=== PATIENT | female | born 1940 | race Caucasian/White ===

== ENCOUNTER → 2016-12-04 | Outpatient (CLI) | payer BC ==
[~2016-12-04] MED LIST: ASPCH81X PO; CALC500C70 PO; CHOL100027 PO; MULT-190 PO; NAPR1TAB9 PO
--- NOTE | 2016-12-04 16:46 | MAMMOGRAPHY REPORT ---
BILATERAL DIGITAL SCREENING MAMMOGRAM WITH CAD: 12/04/2016 CLINICAL HISTORY: Routine screening. Patient has no complaints. TECHNIQUE: Current study was also evaluated with a Computer Aided Detection (CAD) system. Bilatera l CC and MLO views were obtained. COMPARISON: Comparison is made to exams dated: 12/03/2015 mammogram, 11/30/2014 mammogram, 11/10/2013 mammogram, 11/08/2012 mammogram, 11/06/2011 mammogram, and 11/05/2010 mammogram - [facility]. BREAST COMPOSITION: The tissue of both breasts is heterogeneously dense, which may obscure small ma sses. FINDINGS: No suspicious masses, calcifications, or areas of architectural distortion are noted in e ither breast. There has been no significant interval change compared to prior exams. Bilateral beckie gn appearing calcifications are not significantly changed. Lobulated benign-appearing mass in the l eft inferior breast is stable dating back to at least 2006 exam. IMPRESSION: ACR BI-RADS CATEGORY 2: BENIGN There is no mammographic evidence of malignancy. A 1 year screening mammogram is recommended. The p atient will receive written notification of the results. Approximately 10% of breast cancers are not detected with mammography. A negative mammographic repor t should not delay biopsy if a clinically suggestive mass is present. Dolores Desir M.D. /:12/04/2016 15:45:47 [employer]: Lois JAQUEZR M, [facility] letter sent: Normal 1/2 BI-RADS Code: ACR BI-RADS Category 2: Benign
== END | disposition home or self-care (01) ==
LOC: C.MAMM 13:11
PROVIDERS: ATTEND Family Medicine
DX: Z12.31 Encounter for screening mammogram for malignant neoplasm of breast (principal)

== ENCOUNTER → 2017-11-26 | Outpatient (CLI) | payer BC ==
--- NOTE | 2017-11-27 14:59 | MAMMOGRAPHY REPORT ---
BILATERAL DIGITAL SCREENING MAMMOGRAM TOMOSYNTHESIS WITH CAD: 11/26/2017 CLINICAL HISTORY: Routine screening. Patient has no complaints. TECHNIQUE: Breast tomosynthesis in addition to standard 2D mammography was performed. Current study was also evaluated with a Computer Aided Detection (CAD) system. COMPARISON: Comparison is made to exams dated: 12/04/2016 mammogram, 12/03/2015 mammogram, 11/30/2014 m ammogram, 11/10/2013 mammogram, 11/08/2012 mammogram, and 11/06/2011 mammogram - [facility]. BREAST COMPOSITION: The tissue of both breasts is heterogeneously dense, which may obscure small mas ses. FINDINGS: No suspicious masses, calcifications, or areas of architectural distortion are noted in ei ther breast. There has been no significant interval change compared to prior exams. Lobulated benign -appearing mass in the left breast at approximately 6:00 is stable dating back to at least the 2008 e xam. Other small circumscribed benign-appearing masses are noted bilaterally on the tomosynthesis im ages, which are considered benign given the multiplicity and bilaterality and likely represent cysts. Scattered bilateral benign-appearing calcifications are stable. IMPRESSION: ACR BI-RADS CATEGORY 2: BENIGN There is no mammographic evidence of malignancy. A 1 year screening mammogram is recommended. The pa tient will receive written notification of the results. Approximately 10% of breast cancers are not detected with mammography. A negative mammographic report should not delay biopsy if a clinically suggestive mass is present. Dolores Desir M.D. /:11/26/2017 16:09:38 [employer]: Lois JAQUEZR, M, [facility] letter sent: Normal 1/2 BI-RADS Code: ACR BI-RADS Category 2: Benign
== END | disposition home or self-care (01) ==
LOC: C.MAMM 14:43
PROVIDERS: ATTEND Family Medicine
DX: Z12.31 Encounter for screening mammogram for malignant neoplasm of breast (principal)

== ENCOUNTER 2019-02-19 17:32 | Inpatient (IN) ==
[2019-02-19] MEDS ORDERED: SODIUM CHLORIDE 0.9% 1000ML 1,000 ML IV ONE ×2 (18:34→22:20)
[2019-02-19 19:22] LABS: Appearance Urine Clear (Clear); Bacteria Urine Automated Negative (Negative); Blood Urine Negative (Negative); Color Urine Dark Yellow; Epithelial Cell Urine Auto >30 /lpf (0-5); Glucose Urine UA Negative (Negative); Ketones Urine 1+ (Negative); Leukocyte Esterase Urine Negative (Negative); Nitrite Urine Negative (Negative); Protein Urine 2+ (Negative); Urobilinogen Urine Negative (Negative); pH Urine 5.5 (4.5-7.5)
[2019-02-19 19:31] LABS: Bilirubin Urine Negative (Negative); Ictotest Urine Negative (Negative)
[2019-02-19 19:32] LABS: Albumin Level 3.4 gm/dl (3.4-5.0); BUN Creatinine Ratio 16.4 (10-20); Calcium 9.3 mg/dl (8.5-10.1); Creatinine Clr Calc Pharmacy 37.9 ml/min; Est GFR (African American) 57.7; Est GFR (Non-African American) 49.8; Magnesium 2.1 mg/dl (1.8-2.4); Potassium 3.6 mmol/L (3.5-5.1)
--- NOTE | 2019-02-19 19:33 | XRay Report ---
XR chest 1V portable CLINICAL HISTORY: fever COMPARISON STUDY: 08/09/2014 FINDINGS: The bones soft tissues and hemidiaphragms are normal. The cardiomediastinal silhouette is n ormal. The lungs are clear. The pulmonary vasculature is normal. IMPRESSION: Negative chest. The above report was generated using voice recognition software. It may contain grammatical, syntax or spelling errors. Electronically signed by: Luis Alberto Smith M.D. 02/19/2019 7:31 PM
[2019-02-19 19:35] LABS: Albumin Globulin Ratio 1.1 (0.9-2); Bilirubin,Total 0.8 mg/dl (0.2-1); Globulin 3.1 gm/dl (2.5-4.0); Total Protein 6.5 gm/dl (6.4-8.2)
[2019-02-19 19:39] LABS: RBC Urine Automated 0-4 /hpf (0-4)
[2019-02-19 19:40] LABS: Calcium Oxalate Crystals Urine Present (None Prsent)
[2019-02-19 19:58] LABS: Basophils # (auto) 0.01 K/uL (0-0.2); Basophils % (auto) 0.4 %; Hematocrit (blood only) 37.6 % (37-47); Hemoglobin 12.6 g/dL (12.0-16.0); Lymphocytes # (auto) 0.43 K/uL (1.2-3.4); Lymphocytes % (auto) 15.2 %; Mean Corpuscular Hgb Conc 33.5 g/dL (32-36); Mean Corpuscular Volume 89.1 fL (80-100); Mean Platelet Volume 11.4 fL (7.4-10.4); Monocytes # (auto) 0.18 K/uL (0.11-0.59); Monocytes % (auto) 6.4 %; Platelet Count 70 K/uL (130-400); Platelet Estimate Decreased (Normal); RDW Coefficient of Variation 13.1 % (11.5-14.5); RDW Standard Deviation 42.3 fL (36.4-46.3); Red Blood Count 4.22 M/uL (4.2-5.4); White Blood Count 2.82 K/uL (4.8-10.8)
[2019-02-19 20:07] LABS: D Dimer 3520 ug/L FEU (0-500)
[2019-02-19] MEDS ORDERED: KETOROLAC TROMETHAMINE 15 MG/ML VIAL IV STA (20:11)
[2019-02-19] MEDS ORDERED: OPTIRAY 320 125ml IV PRN (21:21)
--- NOTE | 2019-02-19 21:33 | CT Scan Report ---
CT angio chest PE protocol CT DOSE: 257.17 mGy.cm HISTORY: Chest pain. Fever. PE, s/p breast surgery on right TECHNIQUE: Multiaxial CT images of the chest were performed following the intravenous administration of contrast to evaluate the pulmonary arteries. Maximal intensity projection images were also obtaine d. A dose lowering technique was utilized adhering to the principles of ALARA. COMPARISON STUDY: 07/24/2014 FINDINGS: There is a normal caliber thoracic aorta with no evidence for dissection. There is no evide nce for pulmonary embolus. No pleural effusions. No pneumothorax. The liver and spleen are unremarkab le. No mediastinal or hilar lymphadenopathy. The central airways are patent. The lungs are clear. Sta ble 6 mm nodule left lung. No new or interval parenchymal findings. Moderate atherosclerotic change thoracic aorta. No evidence for aneurysm or dissection. 3 x 2 cm righ t axillary hematoma and/or postprocedural seroma. IMPRESSION: 1. No evidence for pulmonary embolus. 2. Lungs are clear. 3. Postoperative changes right breast with one and possibly 2 small superior right breast, right axil denzel fluid pockets suggesting postprocedural hematoma and/or seroma. These do not exceed 3 cm in maxi mum dimension. The above report was generated using voice recognition software. It may contain grammatical, syntax or spelling errors. Electronically signed by: Luis Alberto Smith M.D. 02/19/2019 9:32 PM
[2019-02-19] MEDS ORDERED: VANCOMYCIN CONSULT ACTIVE ONE (22:10)
[2019-02-19] MEDS ORDERED: CEFEPIME 1,000 MG in SYRINGE 0 ML IV STA (22:10)
[2019-02-19] MEDS ORDERED: VANCOMYCIN HCL 1,250 MG in SODIUM CHLORIDE 0.9% 500 ML IV ONE (22:10)
[2019-02-19] MEDS ORDERED: VANCOMYCIN CONSULT ACTIVE PRN (22:10)
[2019-02-19 22:35] LABS: Influenza A virus by PCR Neg for Influ A (Neg); Influenza B virus by PCR Neg for Influ B (Neg)
--- NOTE | 2019-02-20 00:19 | History & Physical Report ---
Date of Service February 20, 2019 Assessment & Plan (1) Sepsis: ? Secondary to infected hematoma/seroma hx breast cancer right status post recent surgery Thrombocytopenia, leukopenia possibly secondary to sepsis Hyperglycemia rule out DM GMF Cultures, Doxycycline for now Surgery consult RE postop eval (ER provider already in touch with Dr. Hwang. ) Check hemoglobin A1c DVT prophylaxis. SCDs RE thromboctopenia Full code History of Present Illness Chief Complaint: Fever Primary Care Provider: Luis Alberto Prado MD History obtained from patient, family, and records. Medical history significant for breast cancer right status post recent surgery, psoriatic arthritis as per records, skin cancer as per records, memory loss. Patient underwent outpatient right needle localized lumpectomy and sentinel node biopsy for right breast cancer located in ectopic breast tissue in the right axilla at [facility] days ago. Patient noted fatigue symptoms 2 days ago, subsequently noted fever chills. No concerns with postop right breast site. No chest pain, S OB, abdominal pain, diarrhea, dysuria. Patient received Vancomycin and Cefepime at the ER. 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 Allergies Allergy/AdvReac Type Severity Reaction Status Date / Time No Known Allergies Allergy Unknown Verified 12/29/18 06:51 Home Medications Home Medications Medication Instructions Recorded Confirmed Type naproxen sodium [Aleve] 220 mg PO BID PRN 11/10/18 02/19/19 History folic acid 1 mg PO DAILY 12/07/18 02/19/19 History acetaminophen [Tylenol] 650 mg PO QID PRN 02/19/19 02/19/19 History [id number]-ixcngjhsozlub-shemhvmt 1 tab PO BID PRN 02/19/19 02/19/19 History [Excedrin Migraine] hydrocodone-acetaminophen [[place]] 1 tab PO UD PRN 02/19/19 02/19/19 History Past Med/Surg History Social History Preferred Language: Bengali Communication Ability: Effective Field Scout Required: No Beliefs That Will Affect Care: None Current Living Situation: Spouse Feels Safe at Home: Yes Safety Concerns: Feels Safe At This Time Smoking Status: Never smoker Second Hand Exposure: No Hx Alcohol Use: Yes Alcohol type: wine and hard liquor Hx Substance Use: No Review of Systems Review of Systems: As per HPI, occasional bilateral dry eye sensation, all 10 systems reviewed, all other ROS negative Physical Exam Physical Exam: GENERAL: Comfortable, no respiratory distress, pleasant SKIN: Normal color, warm HEENT: [place] palpebral conjunctivae, repetitive blinking, no ptosis, dry buccal mucosa NECK : Supple, no tenderness CHEST : CTA, no overt tenderness right chest wall, well coaptated incision, right axillary extension HEART : RRR, no obvious murmurs ABDOMEN: Some distention, nontender EXTREMITIES : Chronic bilateral LE swelling, no LE tenderness, no other conspicuous deformities noted NEUROLOGIC : Coherent, no facial asymmetry, no other gross focality Results & Data Vital Signs (Past 12 Hours) Vital Signs Temp Pulse Pulse Resp BP BP Pulse Ox 02/19/19 22:53 88 20 113/60 93 02/19/19 21:57 37.5 C 02/19/19 21:49 80 16 119/64 96 02/19/19 20:36 37.8 C H 02/19/19 20:07 82 20 127/72 96 02/19/19 17:34 38.0 C H 102 H 18 111/72 95 Laboratory Results Laboratory Results WBC 2.82 K/uL (4.8-10.8) L 02/19/19 18:56 RBC 4.22 M/uL (4.2-5.4) 02/19/19 18:56 Hgb 12.6 g/dL (12.0-16.0) 02/19/19 18:56 Hct 37.6 % (37-47) 02/19/19 18:56 MCV 89.1 fL (80-100) 02/19/19 18:56 MCH 29.9 pg (25-34) 02/19/19 18:56 MCHC 33.5 g/dL (32-36) 02/19/19 18:56 RDW Std Deviation 42.3 fL (36.4-46.3) 02/19/19 18:56 RDW Coeff of Hermila 13.1 % (11.5-14.5) 02/19/19 18:56 Plt Count 70 K/uL (130-400) L 02/19/19 18:56 MPV 11.4 fL (7.4-10.4) H 02/19/19 18:56 Immature Gran % (Auto) 0.0 % 02/19/19 18:56 Neut % (Auto) 78.0 % 02/19/19 18:56 Lymph % (Auto) 15.2 % 02/19/19 18:56 [place] % (Auto) 6.4 % 02/19/19 18:56 Eos % (Auto) 0.0 % 02/19/19 18:56 Baso % (Auto) 0.4 % 02/19/19 18:56 Immature Gran # (Auto) 0.00 K/uL (0.00-0.02) 02/19/19 18:56 Neut # (Auto) 2.20 K/uL (1.4-6.5) 02/19/19 18:56 Lymph # (Auto) 0.43 K/uL (1.2-3.4) L 02/19/19 18:56 [place] # (Auto) 0.18 K/uL (0.11-0.59) 02/19/19 18:56 Eos # (Auto) 0.00 K/uL (0-0.5) 02/19/19 18:56 Baso # (Auto) 0.01 K/uL (0-0.2) 02/19/19 18:56 Platelet Estimate Decreased (Normal) L 02/19/19 18:56 D-Dimer 3520 ug/L FEU (0-500) H* 02/19/19 18:56 Sodium 138 mmol/L (136-145) 02/19/19 18:56 Potassium 3.6 mmol/L (3.5-5.1) 02/19/19 18:56 Chloride 106 mmol/L (98-107) 02/19/19 18:56 Carbon Dioxide 25 mmol/L (21-32) 02/19/19 18:56 Anion Gap 7.0 (3-11) 02/19/19 18:56 BUN 18 mg/dl (7-18) 02/19/19 18:56 Creatinine 1.08 mg/dl (0.6-1.2) 02/19/19 18:56 Est Cr Clr Drug Dosing 37.9 ml/min 02/19/19 18:56 Est GFR ( Amer) 57.7 02/19/19 18:56 Est GFR (Non-Af Amer) 49.8 02/19/19 18:56 BUN/Creatinine Ratio 16.4 (10-20) 02/19/19 18:56 Glucose 116 mg/dl (70-99) H 02/19/19 18:56 POC Lactic Acid Eliel 0.73 mmol/L (0.90-1.70) L 02/19/19 19:01 Calcium 9.3 mg/dl (8.5-10.1) 02/19/19 18:56 Magnesium 2.1 mg/dl (1.8-2.4) 02/19/19 18:56 Total Bilirubin 0.8 mg/dl (0.2-1) 02/19/19 18:56 AST 42 U/L (15-37) H 02/19/19 18:56 ALT 28 U/L (12-78) 02/19/19 18:56 Alkaline Phosphatase 79 U/L (45-117) 02/19/19 18:56 Total Protein 6.5 gm/dl (6.4-8.2) 02/19/19 18:56 Albumin 3.4 gm/dl (3.4-5.0) 02/19/19 18:56 Globulin 3.1 gm/dl (2.5-4.0) 02/19/19 18:56 Albumin/Globulin Ratio 1.1 (0.9-2) 02/19/19 18:56 Lipase 129 U/L (73-393) 02/19/19 18:56 Procalcitonin 0.26 ng/ml (0-0.5) 02/19/19 18:56 TSH 0.766 uIu/ml (0.300-4.500) 02/19/19 18:56 Urine Color Dark Yellow 02/19/19 19:05 Urine Appearance Clear (Clear) 02/19/19 19:05 Urine pH 5.5 (4.5-7.5) 02/19/19 19:05 Ur Specific [place] 1.030 (1.000-1.030) 02/19/19 19:05 Urine Protein 2+ (Negative) H 02/19/19 19:05 Urine Glucose (UA) Negative (Negative) 02/19/19 19:05 Urine Ketones 1+ (Negative) H 02/19/19 19:05 Urine Blood Negative (Negative) 02/19/19 19:05 Urine Nitrite Negative (Negative) 02/19/19 19:05 Urine Bilirubin Negative (Negative) 02/19/19 19:05 Urine Urobilinogen Negative (Negative) 02/19/19 19:05 Ur Leukocyte Esterase Negative (Negative) 02/19/19 19:05 Urine WBC (Auto) 1-5 /hpf (0-5) 02/19/19 19:05 Urine RBC (Auto) 0-4 /hpf (0-4) 02/19/19 19:05 U Hyaline Cast (Auto) 1-5 /lpf (0-5) 02/19/19 19:05 U Epithel Cells (Auto) >30 /lpf (0-5) H 02/19/19 19:05 Urine Bacteria (Auto) Negative (Negative) 02/19/19 19:05 Ur Renal Epithelial Cell Not Reportable 02/19/19 19:05 Urine Crystals Not Reportable 02/19/19 19:05 Calcium Oxalate Crystal Present (None Prsent) A 02/19/19 19:05 Influenza Type A (PCR) Neg for Influ A (Neg) 02/19/19 21:50 Influenza Type B (PCR) Neg for Influ B (Neg) 02/19/19 21:[address] chest: 1. No evidence for pulmonary embolus. 2. Lungs are clear. 3. Postoperative changes right breast with one and possibly 2 small superior right breast, right axillary fluid pockets suggesting postprocedural hematoma and/or seroma. These do not exceed 3 cm in maximum dimension. EKG as per my interpretation: Rate 80, NSR, LAD, LAFB, LAE, T wave flattening inferior leads
[2019-02-20] MEDS ORDERED: IBUPROFEN 200 MG TAB PO PRN (00:24)
[2019-02-20] MEDS ORDERED: PROMETHAZINE HCL 12.5 MG in SODIUM CHLORIDE 0.9% 50 ML IV PRN (00:24)
[2019-02-20] MEDS ORDERED: NSS + 20MEQ KCL 20 MEQ/1,000 ML BAG IV ONE (00:24)
[2019-02-20] MEDS ORDERED: KETOROLAC TROMETHAMINE 15 MG/ML VIAL IV PRN (00:24)
--- NOTE | 2019-02-20 01:06 | Surgery Consultation ---
Date of Consultation February 20, 2019 Assessment & Plan (1) Fever: Patient is admitted to the hospital with IV antibiotics. Blood cultures have been ordered. I will discuss with the radiologist the possibility of ultrasound-guided aspiration of the right axilla. I do not think the patient requires an open operation of the wound. We will assess her response To the antibiotics. History of Present Illness History of Present Illness Patient is a 77-year-old female whose called me today and told me the patient had recent surgery on 02/16/2019 involving the right breast. She now has a fever he described as 103 F. I told them to come to the emergency room for evaluation. In the ER she did have a trip 38. Patient is admitted by the hospitalist ordered IV antibiotics. He did undergo CT scan which shows a small amount of axillary fluid with minimal inflammation. Allergies Allergy/AdvReac Type Severity Reaction Status Date / Time No Known Allergies Allergy Unknown Verified 12/29/18 06:51 Home Medications Home Medications Medication Instructions Recorded Confirmed Type naproxen sodium [Aleve] 220 mg PO BID PRN 11/10/18 02/19/19 History folic acid 1 mg PO DAILY 12/07/18 02/19/19 History acetaminophen [Tylenol] 650 mg PO QID PRN 02/19/19 02/19/19 History tgocuqn-eaydrgrvhjnif-ayjbrsrn 1 tab PO BID PRN 02/19/19 02/19/19 History [Excedrin Migraine] hydrocodone-acetaminophen [[place]] 1 tab PO UD PRN 02/19/19 02/19/19 History Patient History Social History Preferred Language: Uzbek Communication Ability: Effective Beliefs That Will Affect Care: None Current Living Situation: Spouse Feels Safe at Home: Yes Smoking Status: Never smoker Second Hand Exposure: No Hx Alcohol Use: Yes Alcohol type: wine and hard liquor Hx Substance Use: No Review of Systems Review of Systems: All systems reviewed & are unremarkable except as noted in HPI & below Physical Exam Physical Exam: I saw the patient earlier this evening in the emergency room. She appeared awake and alert no distress. She did not appear to be ill. Her head was atraumatic neck supple she was in no respiratory distress her heart showed regular rhythm. On examination of her breast she did have an incision in the axilla with Steri- Strips. Did not appear there was any cellulitis or induration or significant tenderness. I could not feel any significant seroma. Extremities are warm and well-perfused. Results & Data Vital Signs (Past 12 Hours) Vital Signs Temp Pulse Pulse Resp BP BP Pulse Ox 02/20/19 00:47 80 17 141/81 H 96 02/19/19 22:53 88 20 113/60 93 02/19/19 21:57 37.5 C 02/19/19 21:49 80 16 119/64 96 02/19/19 20:36 37.8 C H 02/19/19 20:07 82 20 127/72 96 02/19/19 17:34 38.0 C H 102 H 18 111/72 95 I did review her CAT scan (1) Fever Fever type: unspecified Qualified Code(s): R50.9 - Fever, unspecified
[2019-02-20] MEDS ORDERED: HYDROCODONE/ACETAMOPHEN 5/325MG TAB PO PRN (01:26)
[2019-02-20] MEDS: ACETAMINOPHEN 325 MG TAB PO PRN ×3 (06:15→22:08)
[2019-02-20 06:39] LABS: Hematocrit (blood only) 35.1 % (37-47); Hemoglobin 11.9 g/dL (12.0-16.0); Mean Corpuscular Hgb Conc 33.9 g/dL (32-36); Mean Corpuscular Volume 88.6 fL (80-100); RDW Coefficient of Variation 13.1 % (11.5-14.5); RDW Standard Deviation 42.6 fL (36.4-46.3); Red Blood Count 3.96 M/uL (4.2-5.4); White Blood Count 2.66 K/uL (4.8-10.8)
[2019-02-20 06:40] LABS: Mean Platelet Volume 11.1 fL (7.4-10.4); Platelet Count 60 K/uL (130-400)
--- NOTE | 2019-02-20 06:54 | Progress Note ---
Date of Service February 20, 2019 Assessment & Plan (1) Fever: unusual for such high fever and leukopenia with infected seroma but will ask radiology if they can aspirate seroma for culture and also will ask ID to see she seems to be stable Fever type: unspecified Qualified Code(s): R50.9 - Fever, unspecified Subjective she feels ok and did not notice recent temp of 38.8 no chills or sweats no Rt axill pain Physical Exam Physical Exam: Rt axilla- no erythema or induration small seroma on CT Results & Data Vital Signs (Past 12 Hours) Vital Signs Temp Pulse Pulse Resp BP BP Pulse Ox 02/20/19 06:06 38.8 C H 95 H 16 120/71 93 02/20/19 01:03 37.2 C 111 H 16 152/61 H 100 02/20/19 00:47 80 17 141/81 H 96 02/19/19 22:53 88 20 113/60 93 02/19/19 21:57 37.5 C 02/19/19 21:49 80 16 119/64 96 02/19/19 20:36 37.8 C H 02/19/19 20:07 82 20 127/72 96
[2019-02-20] MEDS ORDERED: VANCOMYCIN CONSULT ACTIVE PRN (07:22)
--- NOTE | 2019-02-20 07:22 | Infectious Disease Consult ---
Date of Consultation February 20, 2019 Assessment & Plan (1) Fever: will restart vanco and follow blood culture results. If drainage of hematoma performed, please send cultures. clinically stable. afebrile. follow cbc (2) Leukopenia: (3) S/P breast lumpectomy: History of Present Illness Attending Physician: Mina Culver MD pt admitted with fever and tenderness in right axilla. had lymph node biopsy done as oupt on 02/16, tolerated well but then had fever yesterday. spoke with surgery, admitted to hospital. Received vanco and cefepime in ER and then placed on doxy upon admission. tolerating well. steri strips in place. D dimer elevated in ER >3000. wbc low, 2.6 ANC normal. temp 38 in ER. Had CTA - negative for PE, no infiltrate but seroma/hematoma noted in right axilla at sight of biopsy. Surgery eval - no OR at this time, continue abx, ? radiology drainage. Blood cultures obtained in ER, pending. pt had fever documented of 38.8 this am, but she denies this. No f/c reported from patient. states she is feeling better since admission, denies rigors. no abd pain, no n/v/d, no cp, sob, cough. denies drainage from wound, no bleeding. still admits to some tenderness, FROM RUE. UA negative, no gu symptoms. Allergies Allergy/AdvReac Type Severity Reaction Status Date / Time No Known Allergies Allergy Unknown Verified 12/29/18 06:51 Home Medications Home Medications Medication Instructions Recorded Confirmed Type naproxen sodium [Aleve] 220 mg PO BID PRN 11/10/18 02/19/19 History folic acid 1 mg PO DAILY 12/07/18 02/19/19 History acetaminophen [Tylenol] 650 mg PO QID PRN 02/19/19 02/19/19 History goxqtqj-octcvaevngclm-eohvoawr 1 tab PO BID PRN 02/19/19 02/19/19 History [Excedrin Migraine] hydrocodone-acetaminophen [[place]] 1 tab PO UD PRN 02/19/19 02/19/19 History Patient History Medical History Hepatitis H/O HEPATITIS A CHILD, UNKNOWN KIND. History of hepatitis as a child Psoriatic arthritis Psoriatic arthritis Surgical History History of appendectomy History of cataract surgery LEFT CATARACT History of cholecystectomy History of colonoscopy History of colonoscopy Social History Preferred Language: Estonian Communication Ability: Effective Junior Legal Secretary Required: No Beliefs That Will Affect Care: None Current Living Situation: Spouse Feels Safe at Home: Yes Safety Concerns: Feels Safe At This Time Smoking Status: Never smoker Second Hand Exposure: No Hx Alcohol Use: Yes Alcohol type: wine and hard liquor Hx Substance Use: No Review of Systems Review of Systems: All systems reviewed & are unremarkable except as noted in HPI & below Physical Exam Constitutional: WD/WN, vitals as above Eyes: PERRL, conjunctivae normal, anicteric sclerae ENMT: external ear and nose normal, oropharynx normal Neck: normal visual inspection Respiratory: normal respiratory effort, lungs clear to auscultation Cardiovascular: RRR, no murmur, no edema Gastrointestinal (Abdomen): normal bowel sounds, soft, nontender, no hepatosplenomegaly Musculoskeletal: no cyanosis or clubbing, extremities motor strength 5/5 Skin: no rashes, warm and dry right axilla biopsy site, steri strips in place, no drainage or bleeding, no open wounds, incision closed, no surrounding warmth, erythema, no fluctuance, min tenderness to palpation Psychiatric: A+Ox3, euthymic affect Results & Data Vital Signs (Past 12 Hours) Vital Signs Temp Pulse Pulse Resp BP BP Pulse Ox 02/20/19 06:06 38.8 C H 95 H 16 120/71 93 02/20/19 01:03 37.2 C 111 H 16 152/61 H 100 02/20/19 00:47 80 17 141/81 H 96 02/19/19 22:53 88 20 113/60 93 02/19/19 21:57 37.5 C 02/19/19 21:49 80 16 119/64 96 02/19/19 20:36 37.8 C H 02/19/19 20:07 82 20 127/72 96 (1) Fever Fever type: unspecified Qualified Code(s): R50.9 - Fever, unspecified (2) Leukopenia Leukopenia type: unspecified Qualified Code(s): D72.819 - Decreased white blood cell count, unspecified
[2019-02-20 07:24] LABS: Immature Granulocytes # (auto) 0.01 K/uL (0.00-0.02); Immature Granulocytes % (auto) 0.4 %; Lymphocytes # (auto) 0.54 K/uL (1.2-3.4); Lymphocytes % (auto) 20.3 %; Monocytes # (auto) 0.16 K/uL (0.11-0.59); Neutrophils # (auto) 1.95 K/uL (1.4-6.5); Neutrophils % (auto) 73.3 %
[2019-02-20] MEDS ORDERED: VANCOMYCIN HCL 1,000 MG in SODIUM CHLORIDE 0.9% 500 ML IV SCH (07:30)
--- NOTE | 2019-02-20 08:37 | Pharmacy Report ---
Pharmacy Abx Initial Consult - Date of Service February 20, 2019 - Pharmacy Dosing Scope Date of Consult: 02/20/19 Consultation requested by: Dr. Penaloza Pharmacy is consulted to initiate vancomycin IV dosing therapy, order appropriate labs and adjust drug dose/frequency. - Subjective The patient is a 78 year old F admitted on 02/20/19 03:16. - Objective Height: 5 ft 1 in Weight: 65 kg Vital Signs (Past 12hrs): Vital Signs Temp Pulse Pulse Resp BP BP Pulse Ox 02/20/19 08:07 38.2 C H 80 20 112/69 95 02/20/19 06:06 38.8 C H 95 H 16 120/71 93 02/20/19 01:03 37.2 C 111 H 16 152/61 H 100 02/20/19 00:47 80 17 141/81 H 96 02/19/19 22:53 88 20 113/60 93 02/19/19 21:57 37.5 C 02/19/19 21:49 80 16 119/64 96 02/19/19 20:36 37.8 C H Lab Results (24hrs): Laboratory Tests (24 Hours) 02/20/19 02/19/19 02/19/19 06:19 18:56 18:56 WBC 2.66 L Neut # (Auto) 1.95 Creatinine 1.08 Est Cr Clr Drug Dosing 37.9 Procalcitonin 0.26 02/19/19 18:56 WBC 2.82 L Neut # (Auto) 2.20 Creatinine Est Cr Clr Drug Dosing Procalcitonin Micro Results: 02/19/19 19:14 Blood Culture - Pending Blood 02/19/19 18:56 Blood Culture - Pending Blood - Assessment & Plan Assessment * 78 year old F who underwent outpt lymph node biopsy on 02/16; subsequently became febrile * Presented to [facility] on 02/19 with fever and tenderness in right axilla * Received vanco and cefepime in ER and then placed on doxy upon admission * ID consulted and recommending vancomycin monotherapy * Blood cultures obtained in ER, pending Plan Vancomycin IV * Estimated PK Parameters: Vd 0.7 L/kg, [place] 0.035 hr-1, t1/2 19.8 hr * Loading dose: 1250 mg (19 mg/kg) * Maintenance dose: 1000 mg IV (15 mg/kg) every 24 hours * Goal trough level: 15 to 20 mcg/mL * Trough ordered for 02/22 @ [id number] Pharmacy will continue to follow and will adjust dose/frequency as necessary. Thank you.
[2019-02-20] MEDS ORDERED: DOXYCYCLINE HYCLATE 100 MG in DEXTROSE 5% 100 ML IV SCH (09:00)
--- NOTE | 2019-02-20 09:07 | Hospitalist Progress Note ---
Date of Service February 20, 2019 Assessment & Plan (1) Fever: Rule out infected seroma/hematoma, status post breast lumpectomy Status post drainage of fluid collection today Follow-up drainage culture Follow-up blood culture No surgery and ID consulted On empiric Zosyn Monitor temperature curve Pancytopenia CBC 5 days ago within normal limits Possibly secondary to bone marrow suppression secondary to underlying infection No signs of bleeding, shortness of breath or dizziness ANC within normal range Peripheral smear ordered: pending Continue to monitor CBC Elevated d-dimer CT angiogram negative for PE check ultrasound Doppler of the legs DVT prophylaxis SCDs Disposition anticipate d/c home when medically stable discussed with patient and his at length and in detail they both agree, understand and are comfortable with plan of care all questions answered Subjective Follow-up for fever Seen sitting up in bed, comfortable, not in distress States she feels fine overall Denies pain Denies chills, headache, shortness of breath, cough, abdominal pain, changes to urination or bowel movement Denies other symptoms Review of Systems Review of Systems: All systems reviewed & are unremarkable except as noted in HPI & below Physical Exam Physical Exam: General- oriented x 3, not in distress, speaks in sentences with no effort or accessory muscle use Eyes- anicteric Neck- no JVD Lungs- clear breath sounds bilaterally, no rales/wheezes Breast- (+) surgical site: wound healing well, well opposed, no bleeding /discharge, mild erythema surrounding, no erythema/tenderness Heart- normal rate, regular rhythm; no murmurs Abdomen- normal bowel sounds, nondistended, soft, nontender Extremities- no pretibial edema, no calf tenderness Neuro- alert, oriented x 3; no gross focal neurologic deficits Skin- warm & dry Results & Data Vital Signs (Past 12 Hours) Vital Signs Temp Pulse Pulse Resp BP BP Pulse Ox 02/20/19 08:07 38.2 C H 80 20 112/69 95 02/20/19 06:06 38.8 C H 95 H 16 120/71 93 02/20/19 01:03 37.2 C 111 H 16 152/61 H 100 02/20/19 00:47 80 17 141/81 H 96 02/19/19 22:53 88 20 113/60 93 02/19/19 21:57 37.5 C 02/19/19 21:49 80 16 119/64 96 Laboratory Results Laboratory Results - last 24 hr 02/19/19 02/19/19 02/19/19 18:56 18:56 18:56 WBC 2.82 L RBC 4.22 Hgb 12.6 Hct 37.6 MCV 89.1 MCH 29.9 MCHC 33.5 RDW Std Deviation 42.3 RDW Coeff of Hermila 13.1 Plt Count 70 L MPV 11.4 H Immature Gran % (Auto) 0.0 Neut % (Auto) 78.0 Lymph % (Auto) 15.2 Rutherford % (Auto) 6.4 Eos % (Auto) 0.0 Baso % (Auto) 0.4 Immature Gran # (Auto) 0.00 Neut # (Auto) 2.20 Lymph # (Auto) 0.43 L [place] # (Auto) 0.18 Eos # (Auto) 0.00 Baso # (Auto) 0.01 Platelet Estimate Decreased L D-Dimer Sodium 138 Potassium 3.6 Chloride 106 Carbon Dioxide 25 Anion Gap 7.0 BUN 18 Creatinine 1.08 Est Cr Clr Drug Dosing 37.9 Est GFR ( Amer) 57.7 Est GFR (Non-Af Amer) 49.8 BUN/Creatinine Ratio 16.4 Glucose 116 H POC Lactic Acid Eliel Calcium 9.3 Magnesium 2.1 Total Bilirubin 0.8 AST 42 H ALT 28 Alkaline Phosphatase 79 Total Protein 6.5 Albumin 3.4 Globulin 3.1 Albumin/Globulin Ratio 1.1 Lipase 129 Procalcitonin 0.26 TSH 0.766 Urine Color Urine Appearance Urine pH Ur Specific Bannister Urine Protein Urine Glucose (UA) Urine Ketones Urine Blood Urine Nitrite Urine Bilirubin Urine Urobilinogen Ur Leukocyte Esterase Urine WBC (Auto) Urine RBC (Auto) U Hyaline Cast (Auto) U Epithel Cells (Auto) Urine Bacteria (Auto) Ur Renal Epithelial Cell Urine Crystals Calcium Oxalate Crystal Influenza Type A (PCR) Influenza Type B (PCR) 02/19/19 02/19/19 02/19/19 18:56 19:01 19:05 WBC RBC Hgb Hct MCV MCH MCHC RDW Std Deviation RDW Coeff of Hermila Plt Count MPV Immature Gran % (Auto) Neut % (Auto) Lymph % (Auto) Ruther[place] % (Auto) Eos % (Auto) Baso % (Auto) Immature Gran # (Auto) Neut # (Auto) Lymph # (Auto) [place] # (Auto) Eos # (Auto) Baso # (Auto) Platelet Estimate D-Dimer 3520 H* Sodium Potassium Chloride Carbon Dioxide Anion Gap BUN Creatinine Est Cr Clr Drug Dosing Est GFR ( Amer) Est GFR (Non-Af Amer) BUN/Creatinine Ratio Glucose POC Lactic Acid Eliel 0.73 L Calcium Magnesium Total Bilirubin AST ALT Alkaline Phosphatase Total Protein Albumin Globulin Albumin/Globulin Ratio Lipase Procalcitonin TSH Urine Color Dark Yellow Urine Appearance Clear Urine pH 5.5 Ur Specific Bannister 1.030 Urine Protein 2+ H Urine Glucose (UA) Negative Urine Ketones 1+ H Urine Blood Negative Urine Nitrite Negative Urine Bilirubin Negative Urine Urobilinogen Negative Ur Leukocyte Esterase Negative Urine WBC (Auto) 1-5 Urine RBC (Auto) 0-4 U Hyaline Cast (Auto) 1-5 U Epithel Cells (Auto) >30 H Urine Bacteria (Auto) Negative Ur Renal Epithelial Cell Not Reportable Urine Crystals Not Reportable Calcium Oxalate Crystal Present A Influenza Type A (PCR) Influenza Type B (PCR) 02/19/19 02/20/19 21:50 06:19 WBC 2.66 L RBC 3.96 L Hgb 11.9 L Hct 35.1 L MCV 88.6 MCH 30.1 MCHC 33.9 RDW Std Deviation 42.6 RDW Coeff of Hermila 13.1 Plt Count 60 L MPV 11.1 H Immature Gran % (Auto) 0.4 Neut % (Auto) 73.3 Lymph % (Auto) 20.3 [place] % (Auto) 6.0 Eos % (Auto) 0.0 Baso % (Auto) 0.0 Immature Gran # (Auto) 0.01 Neut # (Auto) 1.95 Lymph # (Auto) 0.54 L [place] # (Auto) 0.16 Eos # (Auto) 0.00 Baso # (Auto) 0.00 Platelet Estimate D-Dimer Sodium Potassium Chloride Carbon Dioxide Anion Gap BUN Creatinine Est Cr Clr Drug Dosing Est GFR ( Amer) Est GFR (Non-Af Amer) BUN/Creatinine Ratio Glucose POC Lactic Acid Eliel Calcium Magnesium Total Bilirubin AST ALT Alkaline Phosphatase Total Protein Albumin Globulin Albumin/Globulin Ratio Lipase Procalcitonin TSH Urine Color Urine Appearance Urine pH Ur Specific Bannister Urine Protein Urine Glucose (UA) Urine Ketones Urine Blood Urine Nitrite Urine Bilirubin Urine Urobilinogen Ur Leukocyte Esterase Urine WBC (Auto) Urine RBC (Auto) U Hyaline Cast (Auto) U Epithel Cells (Auto) Urine Bacteria (Auto) Ur Renal Epithelial Cell Urine Crystals Calcium Oxalate Crystal Influenza Type A (PCR) Neg for Influ A Influenza Type B (PCR) Neg for Influ B (1) Fever Fever type: unspecified Qualified Code(s): R50.9 - Fever, unspecified
--- NOTE | 2019-02-20 09:27 | Ultrasound Report ---
ULTRASOUND-GUIDED ASPIRATION OF RIGHT AXILLARY FLUID COLLECTION CLINICAL HISTORY: Right axillary seroma. High fever. Assess for infection. COMPARISON STUDY: CT scan of chest dated 02/19/2019 FINDINGS: The procedure was performed on emergent basis. At the request of Dr. Hwang, the right axial fluid randee ection was aspirated to exclude infection. A timeout was performed. The risks the procedure were explained the patient informed consent was obtained. The skin was anesthetized 1% lidocaine. Under ultrasound guidance, the right axillary fluid collection was aspirated utilizing a 22-gauge nee dle. 9 cc of serosanguineous fluid was aspirated and sent to the laboratory for analysis as specified by the referring clinician. IMPRESSION: 1. Successful aspiration of a right axillary fluid collection. 9 cc of serous sinus fluid was aspirat ed and sent to the laboratory for analysis. Electronically signed by: Bacilio Andino M.D. 02/20/2019 9:25 AM
[2019-02-20] MEDS: FOLIC ACID 1 MG TAB PO SCH (10:29)
--- NOTE | 2019-02-20 14:13 | Ultrasound Report ---
US venous doppler LE BI CLINICAL HISTORY: elevated d dimer LEG SWELLING COMPARISON STUDY: No previous studies for comparison. FINDINGS: Real-time and color flow Doppler imaging were performed. Flow was seen within the femoral, popliteal and calf veins with no intraluminal thrombus demonstrated. The saphenous vein is patent. IMPRESSION: No evidence of lower extremity DVT. Electronically signed by: Bacilio Andino M.D. 02/20/2019 2:12 PM
[2019-02-20] MEDS: VANCOMYCIN HCL 1,000 MG in SODIUM CHLORIDE 0.9% 250 ML IV SCH (17:54)
--- NOTE | 2019-02-20 22:12 | Emergency Department Note ---
Entered by Tayo Sorensen acting as a scribe for Kallie Fowler DO History of Present Illness General Chief complaint: Fever Stated complaint: FEVER 103 Time Seen by Provider: 02/19/19 17:36 Source: family () History of Present Illness Onset (ago): hour(s) (earlier this morning) Location: mouth (fever) Pain Consistency: + constant Maximum Pain Intensity: 0 Relieved By: + other (temporarily relieved by a blanket and Tylenol) Associated symptoms: + denies other symptoms (any pain, sore throat, trouble with bowel movements, trouble with urination, and leg swelling) and + other (tiredness); no cough The patient is a 78 year old F who presents to the Emergency Room with complaints of a constant fever that started earlier this morning. The HPI was primarily provided by the patients . 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 This was performed by Dr. Bowmna. He states that the patient was tired yesterday but did not have a fever. He notes that today morning, the patient was experiencing chills and a fever of 103. He states that he placed a blanket over the patient which reduced her fever to less than 102. He adds that he gave the patient Tylenol twice today. He states that he called Maryann because the patient is not normally sick. He adds that Maryann told him to bring the patient to the ED. The patient denies any pain, coughs, sore throat, trouble with bowel movements, trouble with urination, and leg swelling. The patients notes that the patient was not hungry last night but ate a soft-boiled egg for lunch today. The HPI is limited due to the patient's cognitive status. The is the primary historian. Home Medications Home Medications Medication Instructions Recorded Confirmed Type naproxen sodium [Aleve] 220 mg PO BID PRN 11/10/18 02/19/19 History folic acid 1 mg PO DAILY 12/07/18 02/19/19 History acetaminophen [Tylenol] 650 mg PO QID PRN 02/19/19 02/19/19 History zdodryi-[id number] 1 tab PO BID PRN 02/19/19 02/19/19 History [Excedrin Migraine] hydrocodone-acetaminophen [Obion] 1 tab PO UD PRN 02/19/19 02/19/19 History Allergies Allergy/AdvReac Type Severity Reaction Status Date / Time No Known Allergies Allergy Unknown Verified 12/29/18 06:51 Past Med/Surg History Medical History Hepatitis H/O HEPATITIS A CHILD, UNKNOWN KIND. 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 and A total of 10 systems reviewed and were otherwise negative The ROS is limited due to the patient's condition. Physical Exam Vital Signs Vital Signs - 24 hr 02/19/19 22:53 02/20/19 00:47 02/20/19 01:03 Temperature 37.2 C Temperature Source Oral Pulse Rate 80 Pulse Rate [Left] 88 111 H Pulse Rhythm [Left] Regular Pulse Strength [Left] Normal Respiratory Rate 20 17 16 Respiratory Effort / Characteristics Non-Labored Spontaneous Respiratory Depth Normal Respiratory Pattern Regular Blood Pressure 141/81 H Blood Pressure [Left Arm] 113/60 152/61 H Blood Pressure Mean [Left Arm] 77 91 Blood Pressure Position [Left Arm] Sitting Lying Pulse Oximetry 93 96 100 Oxygen Delivery Method Room Air Room Air Room Air 02/20/19 06:06 02/20/19 08:07 02/20/19 16:03 Temperature 38.8 C H 38.2 C H 39.5 C H Temperature Source Oral Oral Oral Pulse Rate Pulse Rate [Left] 95 H 80 70 Pulse Rhythm [Left] Pulse Strength [Left] Respiratory Rate 16 20 19 Respiratory Effort / Characteristics Non-Labored Respiratory Depth Normal Respiratory Pattern Regular Blood Pressure Blood Pressure [Left Arm] 120/71 112/69 124/69 Blood Pressure Mean [Left Arm] 87 83 87 Blood Pressure Position [Left Arm] Lying Left Lateral Pulse Oximetry 93 95 94 Oxygen Delivery Method Room Air Room Air 02/20/19 18:23 02/20/19 20:30 Temperature 37.6 C H 37.9 C H Temperature Source Oral Oral Pulse Rate Pulse Rate [Left] 95 H Pulse Rhythm [Left] Regular Pulse Strength [Left] Normal Respiratory Rate 16 Respiratory Effort / Characteristics Non-Labored Respiratory Depth Normal Respiratory Pattern Regular Blood Pressure Blood Pressure [Left Arm] 128/72 Blood Pressure Mean [Left Arm] 90 Blood Pressure Position [Left Arm] Sitting Pulse Oximetry 95 Oxygen Delivery Method Room Air GENERAL: alert, well appearing, well nourished, no distress, non-toxic EYE EXAM: normal conjunctiva, PERRL and EOM's grossly intact OROPHARYNX: no exudate, no erythema, lips, buccal mucosa, and tongue normal and mucous membranes are moist NECK: supple, no nuchal rigidity, no adenopathy, non-tender LUNGS: Clear to auscultation. Normal chest wall mechanics, no w/r/r HEART: no murmurs, S1 normal and S2 normal ABDOMEN: abdomen soft, non-tender, normo-active bowel sounds, no masses, no r ebound or guarding. BACK: Back is symmetrical on inspection and there is no deformity, no midline te nderness, no CVA tenderness. SKIN: no rashes and no bruising. Healing incision in the right lateral chest/ right axilla, steri strips in place, no dehiscence, no surrounding erythema, no draining or bleeding. UPPER EXTREMITIES: upper extremities are grossly normal. FROM, nml pulses b/l. LOWER EXTREMITIES: No pitting edema. FROM, nml pulses b/l. NEURO EXAM: Normal sensorium, cranial nerves II-XII grossly intact, normal speech, no gross weakness of arms, no gross weakness of legs. Course 1748: The patient was evaluated in room B4B. A complete history and physical exam was performed. 2115: The patient is getting a CAT scan. Vital signs stable, tolerating p.o.. 2208: I reviewed the patient's case [facility] He will evaluate the patient for further management. Consultations Consultation #1: I reviewed the patient's case with Dr. Júnior Juares, [facility] Hospitalist. He will evaluate the patient for further management. Time: 22:09 Administered Medications Acetaminophen (Tylenol) 650 mg PO QID PRN PRN Reason: Fever Or Pain Stop: 03/22/19 01:25 Last Admin: 02/20/19 15:15 Dose: 650 mg Documented by: [id number] Admin: 02/20/19 06:15 Dose: 650 mg Documented by: [id number] Folic Acid (Folvite) 1 mg PO DAILY LAUREN Stop: 03/22/19 08:59 Last Admin: 02/20/19 10:29 Dose: 1 mg Documented by: [id number] Vancomycin HCl 1,000 mg/ (Sodium Chloride) 270 mls @ 125 mls/hr IV Q24H LAUREN Stop: 03/02/19 17:59 Last Infusion: 02/20/19 20:08 Dose: 0 mls/hr Documented by: [id number] Admin: 02/20/19 17:54 Dose: 125 mls/hr Documented by: [id number] Discontinued Medications Sodium Chloride (Nss 1000ml) 1,000 mls @ 999 mls/hr IV .Q1H1M ONE Stop: 02/19/19 19:34 Last Infusion: 02/19/19 20:06 Dose: 0 mls/hr Documented by: [id number] Admin: 02/19/19 19:11 Dose: 999 mls/hr Documented by: [id number] Cefepime HCl 1,000 mg/ Syringe 11.3 mls @ 5.5 mls/min IV NOW STA; Protocol Stop: 02/19/19 22:12 Last Admin: 02/19/19 22:45 Dose: 5.5 mls/min Documented by: [id number] Vancomycin HCl 1,250 mg/ (Sodium Chloride) 525 mls @ 200 mls/hr IV NOW ONE; Protocol Stop: 02/20/19 00:47 Last Infusion: 02/20/19 02:20 Dose: 0 mls/hr Documented by: [id number] Admin: 02/19/19 22:48 Dose: 200 mls/hr Documented by: [id number] Sodium Chloride (Nss 1000ml) 1,000 mls @ 999 mls/hr IV .Q1H1M ONE Stop: 02/19/19 23:20 Last Infusion: 02/20/19 00:45 Dose: 0 mls/hr Documented by: [id number] Admin: 02/19/19 22:48 Dose: 999 mls/hr Documented by: [id number] Potassium Chloride/Sodium Chloride (Normal Saline W/20 Meq Kcl) 20 meq in 1,000 mls @ 80 mls/hr IV .[id number] ONE Stop: 02/20/19 12:53 Last Infusion: 02/20/19 14:36 Dose: 0 mls/hr Documented by: [id number] Admin: 02/20/19 01:25 Dose: 80 mls/hr Documented by: [id number] Ioversol (Optiray 320 125ml) 90 ml IV ONCE PRN PRN Reason: Interaction Checking Stop: 02/23/19 21:20 Last Admin: 02/19/19 21:22 Dose: 90 ml Documented by: [id number] Ketorolac Tromethamine (Toradol) 15 mg IV NOW STA Stop: 02/19/19 20:12 Last Admin: 02/19/19 20:29 Dose: 15 mg Documented by: [id number] Miscellaneous Information (Consult) 1 ea N/A UD ONE Stop: 02/19/19 22:11 Last Admin: 02/19/19 22:49 Dose: Not Given Documented by: [id number] Medical Decision Making Differential Diagnosis Differential diagnosis includes: viral syndrome, otitis, pharyngitis, pneumonia, influenza, meningitis, urinary tract infection, sepsis, bacteremia, as well as others were entertained. Medical Records Attestation: I reviewed the patient's medical records. Home Medications Current Medication List: was personally reviewed by me Laboratory Data Attestation: I reviewed the patient's lab results. Result diagrams: 02/20/19 06:19 02/19/19 18:56 Lab Results 02/19/19 02/19/19 02/19/19 Range/Units 18:56 18:56 18:56 WBC 2.82 L (4.8-10.8) K/uL RBC 4.22 (4.2-5.4) M/uL Hgb 12.6 (12.0-16.0) g/dL Hct 37.6 (37-47) % MCV 89.1 (80-100) fL MCH 29.9 (25-34) pg MCHC 33.5 (32-36) g/dL RDW Std Deviation 42.3 (36.4-46.3) fL RDW Coeff of Hermila 13.1 (11.5-14.5) % Plt Count 70 L (130-400) K/uL MPV 11.4 H (7.4-10.4) fL Immature Gran % (Auto) 0.0 % Neut % (Auto) 78.0 % Lymph % (Auto) 15.2 % Johnston % (Auto) 6.4 % Eos % (Auto) 0.0 % Baso % (Auto) 0.4 % Immature Gran # (Auto) 0.00 (0.00-0.02) K/uL Neut # (Auto) 2.20 (1.4-6.5) K/uL Lymph # (Auto) 0.43 L (1.2-3.4) K/uL Johnston # (Auto) 0.18 (0.11-0.59) K/uL Eos # (Auto) 0.00 (0-0.5) K/uL Baso # (Auto) 0.01 (0-0.2) K/uL Platelet Estimate Decreased L (Normal) D-Dimer (0-500) ug/L FEU Sodium 138 (136-145) mmol/L Potassium 3.6 (3.5-5.1) mmol/L Chloride 106 (98-107) mmol/L Carbon Dioxide 25 (21-32) mmol/L Anion Gap 7.0 (3-11) BUN 18 (7-18) mg/dl Creatinine 1.08 (0.6-1.2) mg/dl Est Cr Clr Drug Dosing 37.9 ml/min Est GFR ( Amer) 57.7 Est GFR (Non-Af Amer) 49.8 BUN/Creatinine Ratio 16.4 (10-20) Glucose 116 H (70-99) mg/dl POC Lactic Acid Eliel (0.90-1.70) mmol/L Calcium 9.3 (8.5-10.1) mg/dl Magnesium 2.1 (1.8-2.4) mg/dl Total Bilirubin 0.8 (0.2-1) mg/dl AST 42 H (15-37) U/L ALT 28 (12-78) U/L Alkaline Phosphatase 79 (45-117) U/L Total Protein 6.5 (6.4-8.2) gm/dl Albumin 3.4 (3.4-5.0) gm/dl Globulin 3.1 (2.5-4.0) gm/dl Albumin/Globulin Ratio 1.1 (0.9-2) Lipase 129 (73-393) U/L Procalcitonin 0.26 (0-0.5) ng/ml TSH 0.766 (0.300-4.500) uIu/ml Urine Color Urine Appearance (Clear) Urine pH (4.5-7.5) Ur Specific Eclectic (1.000-1.030) Urine Protein (Negative) Urine Glucose (UA) (Negative) Urine Ketones (Negative) Urine Blood (Negative) Urine Nitrite (Negative) Urine Bilirubin (Negative) Urine Urobilinogen (Negative) Ur Leukocyte Esterase (Negative) Urine WBC (Auto) (0-5) /hpf Urine RBC (Auto) (0-4) /hpf U Hyaline Cast (Auto) (0-5) /lpf U Epithel Cells (Auto) (0-5) /lpf Urine Bacteria (Auto) (Negative) Ur Renal Epithelial Cell Urine Crystals Calcium Oxalate Crystal (None Prsent) Influenza Type A (PCR) (Neg) Influenza Type B (PCR) (Neg) 02/19/19 02/19/19 02/19/19 Range/Units 18:56 19:01 19:05 WBC (4.8-10.8) K/uL RBC (4.2-5.4) M/uL Hgb (12.0-16.0) g/dL Hct (37-47) % MCV (80-100) fL MCH (25-34) pg MCHC (32-36) g/dL RDW Std Deviation (36.4-46.3) fL RDW Coeff of Hermila (11.5-14.5) % Plt Count (130-400) K/uL MPV (7.4-10.4) fL Immature Gran % (Auto) % Neut % (Auto) % Lymph % (Auto) % Johnston % (Auto) % Eos % (Auto) % Baso % (Auto) % Immature Gran # (Auto) (0.00-0.02) K/uL Neut # (Auto) (1.4-6.5) K/uL Lymph # (Auto) (1.2-3.4) K/uL Johnston # (Auto) (0.11-0.59) K/uL Eos # (Auto) (0-0.5) K/uL Baso # (Auto) (0-0.2) K/uL Platelet Estimate (Normal) D-Dimer 3520 H* (0-500) ug/L FEU Sodium (136-145) mmol/L Potassium (3.5-5.1) mmol/L Chloride (98-107) mmol/L Carbon Dioxide (21-32) mmol/L Anion Gap (3-11) BUN (7-18) mg/dl Creatinine (0.6-1.2) mg/dl Est Cr Clr Drug Dosing ml/min Est GFR ( Amer) Est GFR (Non-Af Amer) BUN/Creatinine Ratio (10-20) Glucose (70-99) mg/dl POC Lactic Acid Eliel 0.73 L (0.90-1.70) mmol/L Calcium (8.5-10.1) mg/dl Magnesium (1.8-2.4) mg/dl Total Bilirubin (0.2-1) mg/dl AST (15-37) U/L ALT (12-78) U/L Alkaline Phosphatase (45-117) U/L Total Protein (6.4-8.2) gm/dl Albumin (3.4-5.0) gm/dl Globulin (2.5-4.0) gm/dl Albumin/Globulin Ratio (0.9-2) Lipase (73-393) U/L Procalcitonin (0-0.5) ng/ml TSH (0.300-4.500) uIu/ml Urine Color Dark Yellow Urine Appearance Clear (Clear) Urine pH 5.5 (4.5-7.5) Ur Specific Eclectic 1.030 (1.000-1.030) Urine Protein 2+ H (Negative) Urine Glucose (UA) Negative (Negative) Urine Ketones 1+ H (Negative) Urine Blood Negative (Negative) Urine Nitrite Negative (Negative) Urine Bilirubin Negative (Negative) Urine Urobilinogen Negative (Negative) Ur Leukocyte Esterase Negative (Negative) Urine WBC (Auto) 1-5 (0-5) /hpf Urine RBC (Auto) 0-4 (0-4) /hpf U Hyaline Cast (Auto) 1-5 (0-5) /lpf U Epithel Cells (Auto) >30 H (0-5) /lpf Urine Bacteria (Auto) Negative (Negative) Ur Renal Epithelial Cell Not Reportable Urine Crystals Not Reportable Calcium Oxalate Crystal Present A (None Prsent) Influenza Type A (PCR) (Neg) Influenza Type B (PCR) (Neg) 02/19/19 02/20/19 Range/Units 21:50 06:19 WBC 2.66 L (4.8-10.8) K/uL RBC 3.96 L (4.2-5.4) M/uL Hgb 11.9 L (12.0-16.0) g/dL Hct 35.1 L (37-47) % MCV 88.6 (80-100) fL MCH 30.1 (25-34) pg MCHC 33.9 (32-36) g/dL RDW Std Deviation 42.6 (36.4-46.3) fL RDW Coeff of Hermila 13.1 (11.5-14.5) % Plt Count 60 L (130-400) K/uL MPV 11.1 H (7.4-10.4) fL Immature Gran % (Auto) 0.4 % Neut % (Auto) 73.3 % Lymph % (Auto) 20.3 % Johnston % (Auto) 6.0 % Eos % (Auto) 0.0 % Baso % (Auto) 0.0 % Immature Gran # (Auto) 0.01 (0.00-0.02) K/uL Neut # (Auto) 1.95 (1.4-6.5) K/uL Lymph # (Auto) 0.54 L (1.2-3.4) K/uL Johnston # (Auto) 0.16 (0.11-0.59) K/uL Eos # (Auto) 0.00 (0-0.5) K/uL Baso # (Auto) 0.00 (0-0.2) K/uL Platelet Estimate (Normal) D-Dimer (0-500) ug/L FEU Sodium (136-145) mmol/L Potassium (3.5-5.1) mmol/L Chloride (98-107) mmol/L Carbon Dioxide (21-32) mmol/L Anion Gap (3-11) BUN (7-18) mg/dl Creatinine (0.6-1.2) mg/dl Est Cr Clr Drug Dosing ml/min Est GFR ( Amer) Est GFR (Non-Af Amer) BUN/Creatinine Ratio (10-20) Glucose (70-99) mg/dl POC Lactic Acid Eliel (0.90-1.70) mmol/L Calcium (8.5-10.1) mg/dl Magnesium (1.8-2.4) mg/dl Total Bilirubin (0.2-1) mg/dl AST (15-37) U/L ALT (12-78) U/L Alkaline Phosphatase (45-117) U/L Total Protein (6.4-8.2) gm/dl Albumin (3.4-5.0) gm/dl Globulin (2.5-4.0) gm/dl Albumin/Globulin Ratio (0.9-2) Lipase (73-393) U/L Procalcitonin (0-0.5) ng/ml TSH (0.300-4.500) uIu/ml Urine Color Urine Appearance (Clear) Urine pH (4.5-7.5) Ur Specific Eclectic (1.000-1.030) Urine Protein (Negative) Urine Glucose (UA) (Negative) Urine Ketones (Negative) Urine Blood (Negative) Urine Nitrite (Negative) Urine Bilirubin (Negative) Urine Urobilinogen (Negative) Ur Leukocyte Esterase (Negative) Urine WBC (Auto) (0-5) /hpf Urine RBC (Auto) (0-4) /hpf U Hyaline Cast (Auto) (0-5) /lpf U Epithel Cells (Auto) (0-5) /lpf Urine Bacteria (Auto) (Negative) Ur Renal Epithelial Cell Urine Crystals Calcium Oxalate Crystal (None Prsent) Influenza Type A (PCR) Neg for Influ A (Neg) Influenza Type B (PCR) Neg for Influ B (Neg) Imaging Data Radiologist's Impression: Radiology results as stated below per my review and the radiologist's interpretation: XR chest 1V portable CLINICAL HISTORY: fever COMPARISON STUDY: 08/09/2014 FINDINGS: The bones soft tissues and hemidiaphragms are normal. The cardiomediastinal silhouette is normal. The lungs are clear. The pulmonary vasculature is normal. IMPRESSION: Negative chest. The above report was generated using voice recognition software. It may contain grammatical, syntax or spelling errors. Electronically signed by: Luis Alberto Smith M.D. 02/19/2019 7:[address] angio chest PE protocol CT DOSE: 257.17 mGy.cm HISTORY: Chest pain. Fever. PE, s/p breast surgery on right TECHNIQUE: Multiaxial CT images of the chest were performed following the intravenous administration of contrast to evaluate the pulmonary arteries. Maximal intensity projection images were also obtained. A dose lowering technique was utilized adhering to the principles of ALARA. COMPARISON STUDY: 07/24/2014 FINDINGS: There is a normal caliber thoracic aorta with no evidence for dissection. There is no evidence for pulmonary embolus. No pleural effusions. No pneumothorax. The liver and spleen are unremarkable. No mediastinal or hilar lymphadenopathy. The central airways are patent. The lungs are clear. Stable 6 mm nodule left lung. No new or interval parenchymal findings. Moderate atherosclerotic change thoracic aorta. No evidence for aneurysm or dissection. 3 x 2 cm right axillary hematoma and/or postprocedural seroma. IMPRESSION: 1. No evidence for pulmonary embolus. 2. Lungs are clear. 3. Postoperative changes right breast with one and possibly 2 small superior right breast, right axillary fluid pockets suggesting postprocedural hematoma and/or seroma. These do not exceed 3 cm in maximum dimension. The above report was generated using voice recognition software. It may contain grammatical, syntax or spelling errors. Electronically signed by: Luis Alberto Smith M.D. 02/19/2019 9:32 PM ECG Data Indication: other (fever) Rate (beats per minute): 81 Rhythm: sinus rhythm Findings: + other (normal axis, normal intervals); no acute ischemic change and no ectopy Blood Pressure Blood Pressure Findings: Normal blood pressure Blood Pressure Disposition: did not require urgent referral MDM Narrative This is a 78-year-old lady who presented to the emergency room with her due to fever. Patient is 3 days status post lumpectomy in the right axilla. Incision site was well-appearing and without any obvious abscess or cellulitis. This was also checked at bedside by Dr. Hwang who was in agreement. No evidence of UTI or pneumonia. No evidence of PE, no leg swelling or calf tenderness to suggest occult DVT. Patient with no GI symptoms and tolerating p.o. here without difficulty. Unclear etiology of patient's fever. CT of the chest did reveal small seroma/hematoma, however no definitive abscess. Blood cultures were drawn and sent and antibiotics started on the patient. Patient initially started on IV fluids, and by time all testing was completed, she had received 2 L of IV fluid which would be the equivalent of her 30 ml/kg. Flu swab negative. Patient's lactic acid and procalcitonin were reassuring. Unclear etiology of patient's fever and possible bacteremia. Concern for evolving sepsis in this condition, so case discussed with hospitalist for additional inpatient management. Patient and family were aware of all results were in agreement with plan. Patient was hemodynamically stable while in the emergency room. Impression & Plan Fever, Leukopenia, Thrombocytopenia, S/P breast lumpectomy Discharge Plan Visit Data *Final* Discharge Date/Time: 02/20/19 00:47 Chief Complaint: Fever Stated Complaint: FEVER 103 ED Provider: Kallie Fowler Discharge Problem: Fever, Leukopenia, Thrombocytopenia, S/P breast lumpectomy Patient Disposition: Admitted As Inpatient Discharge Instructions Interventions: ED Discharge Assessment Last Done: 02/20/19 00:47 Discharge Problem: Fever Qualifiers: Fever type: unspecified Qualified Code(s): R50.9 - Fever, unspecified Leukopenia Qualifiers: Leukopenia type: unspecified Qualified Code(s): D72.819 - Decreased white blood cell count, unspecified The scribe's documentation has been prepared under my direction and personally reviewed by me in its entirety. I confirm that the note above accurately reflects all work, treatment, procedures, and medical decision making performed by me.
[2019-02-20] MEDS ORDERED: PIPERACILLIN/TAZOBACTAM 4.5 GM in DEXTROSE 5% 100 ML IV STA (22:41)
[2019-02-20] MEDS ORDERED: PIPERACILL/TAZOBAC CONSULT ACTIVE PRN (22:41)
[2019-02-20] MEDS ORDERED: KETOROLAC TROMETHAMINE 15 MG/ML VIAL IV STA (22:43)
--- NOTE | 2019-02-20 22:43 | Hospitalist Progress Note ---
Date of Service February 20, 2019 Subjective Made aware by RN of intermittent fever spike throughout the day despite ongoing IV Vancomycin Rx. Add IV Zosyn to regimen as per earlier discussion to AM provider. Results & Data Vital Signs (Past 12 Hours) Vital Signs Temp Pulse Resp BP Pulse Ox 02/20/19 22:07 39.4 C H 02/20/19 20:30 37.9 C H 02/20/19 18:23 37.6 C H 95 H 16 128/72 95 02/20/19 16:03 39.5 C H 70 19 124/69 94
[2019-02-20] MEDS ORDERED: LACTATED RINGER'S 1,000 ML IV ONE (22:44)
[2019-02-20] MEDS ORDERED: PIPERACILLIN/TAZOBACTAM 3.375 GM in DEXTROSE 5% 100 ML IV ONE (23:00)
[2019-02-20] MEDS ORDERED: VANCOMYCIN HCL 1,000 MG in SODIUM CHLORIDE 0.9% 250 ML IV SCH (23:00)
[2019-02-21] MEDS: PIPERACILLIN/TAZOBACTAM 3.375 GM in DEXTROSE 5% 100 ML IV SCH ×3 (03:13→20:58)
[2019-02-21 06:05] LABS: Estimated Average Glucose 120 mg/dl; Hemoglobin A1C 5.8 % (4.5-5.6)
[2019-02-21] MEDS: ACETAMINOPHEN 325 MG TAB PO PRN (07:39)
[2019-02-21] MEDS: FOLIC ACID 1 MG TAB PO SCH (07:39)
[2019-02-21 07:51] LABS: Est GFR (African American) 59.1
[2019-02-21 07:58] LABS: BUN Creatinine Ratio 11.6 (10-20); Calcium 8.9 mg/dl (8.5-10.1); Creatinine Clr Calc Pharmacy 37.6 ml/min; Est GFR (African American) 56.5; Est GFR (Non-African American) 48.7; Potassium 3.4 mmol/L (3.5-5.1)
[2019-02-21 08:21] LABS: Eosinophils # (auto) 0.02 K/uL (0-0.5); Eosinophils % (auto) 0.8 %; Giant Platelets 1+; Hematocrit (blood only) 36.3 % (37-47); Hemoglobin 12.3 g/dL (12.0-16.0); Immature Granulocytes # (auto) 0.02 K/uL (0.00-0.02); Immature Granulocytes % (auto) 0.8 %; Lymphocytes # (auto) 0.48 K/uL (1.2-3.4); Lymphocytes % (auto) 19.7 %; Mean Corpuscular Hgb Conc 33.9 g/dL (32-36); Mean Platelet Volume 12.6 fL (7.4-10.4); Monocytes # (auto) 0.16 K/uL (0.11-0.59); Monocytes % (auto) 6.6 %; Neutrophils # (auto) 1.76 K/uL (1.4-6.5); Neutrophils % (auto) 72.1 %; Platelet Count 46 K/uL (130-400); RDW Coefficient of Variation 13.2 % (11.5-14.5); RDW Standard Deviation 43.1 fL (36.4-46.3); Red Blood Count 4.08 M/uL (4.2-5.4); White Blood Count 2.44 K/uL (4.8-10.8)
--- NOTE | 2019-02-21 09:34 | Hospitalist Progress Note ---
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 Management noted below Pancytopenia CBC 5 days ago within normal limits Likely secondary to anaplasmosis Rule out secondary to bone marrow suppression secondary to underlying infection from infected seroma No signs of bleeding, shortness of breath or dizziness ANC within normal range Peripheral smear ordered: Positive signs of anaplasmosis Platelet count further decreased from 70,000 now 14,000 We will add doxycycline 100 mg IV twice a day for anaplasmosis Elevated d-dimer CT angiogram negative for PE ultrasound Doppler of the legs: Negative for DVT DVT prophylaxis SCDs Disposition anticipate d/c home when medically stable discussed with patient and his at length and in detail they both agree, understand and are comfortable with plan of care all questions answered Subjective Follow-up for fever, recent breast surgery Seen resting in bedside chair, sitting up, reading the paper Appears to be brighter today, states she feels better overall compared to yesterday Denies chills this morning Denies headache, chest pain, shortness of breath, pain on the surgical site or right breast, no abdominal pain, no nausea No changes with bowel movements or urination Denies other symptoms Review of Systems Review of Systems: All systems reviewed & are unremarkable except as noted in HPI & below Physical Exam Physical Exam: Laboratory Results - last 24 hr 02/19/19 02/20/19 02/21/19 18:56 06:19 06:59 WBC RBC Hgb Hct MCV MCH MCHC RDW Std Deviation RDW Coeff of Hermila Plt Count MPV Immature Gran % (A uto) Neut % (Auto) Lymph % (Auto) [place] % (Auto) Eos % (Auto) Baso % (Auto) Immature Gran # (A uto) Neut # (Auto) Lymph # (Auto) [place] # (Auto) Eos # (Auto) Baso # (Auto) Blood Smear Review Giant Platelets Peripher Smr Path Cons Sodium Potassium Chloride Carbon Dioxide Anion Gap BUN Creatinine 1.06 Est Cr Clr Drug Do sing 39.0 Est GFR ( A teo) 59.1 Est GFR (Non-Af Am er) 51.0 BUN/Creatinine Rat io Glucose Estimat Average Gl ucose 120 Hemoglobin A1c 5.8 H Calcium Total Bilirubin Direct Bilirubin AST ALT Alkaline Phosphata se Total Protein Albumin Lyme Disease IgG A b Lyme Disease IgM A b 02/21/19 02/21/19 02/21/19 07:00 07:00 07:00 WBC 2.44 L RBC 4.08 L Hgb 12.3 Hct 36.3 L MCV 89.0 MCH 30.1 MCHC 33.9 RDW Std Deviation 43.1 RDW Coeff of Hermila 13.2 Plt Count 46 L MPV 12.6 H Immature Gran % (A uto) 0.8 Neut % (Auto) 72.1 Lymph % (Auto) 19.7 [place] % (Auto) 6.6 Eos % (Auto) 0.8 Baso % (Auto) 0.0 Immature Gran # (A uto) 0.02 Neut # (Auto) 1.76 Lymph # (Auto) 0.48 L [place] # (Auto) 0.16 Eos # (Auto) 0.02 Baso # (Auto) 0.00 Blood Smear Review Giant Platelets 1+ Peripher Smr Path Cons Sodium 139 Potassium 3.4 L Chloride 107 Carbon Dioxide 26 Anion Gap 7.0 BUN 13 Creatinine 1.10 Est Cr Clr Drug Do sing 37.6 Est GFR ( A teo) 56.5 Est GFR (Non-Af Am er) 48.7 BUN/Creatinine Rat io 11.6 Glucose 114 H Estimat Average Gl ucose Hemoglobin A1c Calcium 8.9 Total Bilirubin 0.7 Direct Bilirubin 0.2 AST 55 H ALT 34 Alkaline Phosphata se 106 Total Protein 5.8 L Albumin 2.6 L Lyme Disease IgG A b Lyme Disease IgM A b 02/21/19 02/21/19 14:54 14:54 WBC RBC Hgb Hct MCV MCH MCHC RDW Std Deviation RDW Coeff of Hermila Plt Count MPV Immature Gran % (A uto) Neut % (Auto) Lymph % (Auto) [place] % (Auto) Eos % (Auto) Baso % (Auto) Immature Gran # (A uto) Neut # (Auto) Lymph # (Auto) [place] # (Auto) Eos # (Auto) Baso # (Auto) Blood Smear Review Giant Platelets Peripher Smr Path Cons Sodium Potassium Chloride Carbon Dioxide Anion Gap BUN Creatinine Est Cr Clr Drug Do sing Est GFR ( A teo) Est GFR (Non-Af Am er) BUN/Creatinine Rat io Glucose Estimat Average Gl ucose Hemoglobin A1c Calcium Total Bilirubin 0.7 Direct Bilirubin 0.2 AST 56 H ALT 36 Alkaline Phosphata se 107 Total Protein 5.8 L Albumin 2.6 L Lyme Disease IgG A b Negative Lyme Disease IgM A b Negative Results & Data Vital Signs (Past 12 Hours) Vital Signs Temp Pulse Resp BP Pulse Ox 02/21/19 08:52 38.1 C H 02/21/19 07:28 38.2 C H 92 H 16 151/80 H 95 02/21/19 03:40 37.2 C 78 18 130/79 98 02/20/19 23:00 39.4 C H 91 H 20 144/75 H 95 02/20/19 22:07 39.4 C H (1) Fever Fever type: unspecified Qualified Code(s): R50.9 - Fever, unspecified
--- NOTE | 2019-02-21 10:12 | Infectious Disease Progress Nt ---
Date of Service February 21, 2019 Assessment & Plan (1) Fever: continue abx, follow cultures. dopplers negative for DVT. continues with high fever, continue supportive care. aspiration done yesterday. (2) Leukopenia: (3) S/P breast lumpectomy: Subjective pt wiht fevers overnight, tmax 39.2, fever this am 38.2. zosyn added. remains on vanco. tolerating well. denies f/c. no rigors, slept well. no pain. OOB to chair on my exam. undewent radiology aspiration of right axilla yesterday, small amount of fluid aspiratied, gram stain negative, culture pending, blood culutres negative to date. wbc low, 2.4, ANC >1000. no cp, sob, cough, no abd pain, no n/v/d, eating well. no gu symptoms. Review of Systems Review of Systems: All systems reviewed & are unremarkable except as noted in HPI & below Results & Data Vital Signs (Past 12 Hours) Vital Signs Temp Pulse Resp BP Pulse Ox 02/21/19 08:52 38.1 C H 02/21/19 07:28 38.2 C H 92 H 16 151/80 H 95 02/21/19 03:40 37.2 C 78 18 130/79 98 02/20/19 23:00 39.4 C H 91 H 20 144/75 H 95 Laboratory Results Microbiology 02/19/19 19:14 Blood Blood Culture - Preliminary No growth to date. 02/19/19 18:56 Blood Blood Culture - Preliminary No growth to date. 02/20/19 09:00 Axilla,Right Gram Stain - Final (1) Fever Fever type: unspecified Qualified Code(s): R50.9 - Fever, unspecified (2) Leukopenia Leukopenia type: unspecified Qualified Code(s): D72.819 - Decreased white blood cell count, unspecified
[2019-02-21] MEDS: ACETAMINOPHEN 325 MG TAB PO SCH ×2 (12:10→18:49)
[2019-02-21 15:32] LABS: Albumin Level 2.6 gm/dl (3.4-5.0); Bilirubin Direct 0.2 mg/dl (0-0.2); Bilirubin,Total 0.7 mg/dl (0.2-1); Total Protein 5.8 gm/dl (6.4-8.2)
[2019-02-21 15:35] LABS: Albumin Level 2.6 gm/dl (3.4-5.0); Bilirubin Direct 0.2 mg/dl (0-0.2); Bilirubin,Total 0.7 mg/dl (0.2-1); Total Protein 5.8 gm/dl (6.4-8.2)
[2019-02-21 16:03] LABS: Lyme Ab IgG w/WB Rflx Negative (Negative); Lyme Ab IgM w/WB Rflx Negative (Negative)
--- NOTE | 2019-02-21 16:50 | Surgery Progress Note ---
Date of Service February 21, 2019 Assessment & Plan (1) Fever: Etiology?? Possible anaplasmosis, tests pending Right axillary seroma, s/p US guided aspiration, culture with no growth to date so far blood cultures 2/2 no growth to date Still running fevers, tmax yesterday 39.5 Plan: Continue PO Tylenol as needed for pain Continue IV abx follow cultures Follow cbc await anaplasmosis lab results continue medical management (2) Leukopenia: Plan as above (3) Thrombocytopenia: Plan as above (4) S/P breast lumpectomy: post op seroma of right axilla measuring 3 cm aspirated, clear serous fluid, sent for culture with no growth to date. Blood cultures 2/2 no growth to date. Still febrile, tmax yesterday 39.5, patient asymptomatic, no chills/sweats minimal post op pain Plan as above Dr. Harman has seen and examined pt, agrees with above Subjective "feeling okay" very flat affect, hard to obtain ROS has not felt feverish, denies chills or sweats minimal pain no n/v tolerating diet Per nurse (just coming onto shift) she received report she may have some short term memory loss and forgetfulness Patient seemed somewhat confused and unsure what to do with the IV pole during examination. Physical Exam Constitutional: WD/WN, vitals as above no acute distress and not ill appearing Respiratory: normal respiratory effort; no respiratory distress Skin: no rashes, warm and dry Right axilla: no erythema, no induration, no fluctuance, minimal tenderness on palpation Psychiatric: Orientation: alert and oriented x 3 Results & Data Vital Signs (Past 12 Hours) Vital Signs Temp Pulse Resp BP Pulse Ox 02/21/19 08:52 38.1 C H 02/21/19 07:28 38.2 C H 92 H 16 151/80 H 95 Laboratory Results 02/21/19 02/21/19 02/21/19 Range/Units 14:54 14:54 14:54 WBC (4.8-10.8) K/uL RBC (4.2-5.4) M/uL Hgb (12.0-16.0) g/dL Hct (37-47) % MCV (80-100) fL MCH (25-34) pg MCHC (32-36) g/dL RDW Std Deviation (36.4-46.3) fL RDW Coeff of Hermila (11.5-14.5) % Plt Count (130-400) K/uL MPV (7.4-10.4) fL Immature Gran % (Auto) % Neut % (Auto) % Lymph % (Auto) % [place] % (Auto) % Eos % (Auto) % Baso % (Auto) % Immature Gran # (Auto) (0.00-0.02) K/uL Neut # (Auto) (1.4-6.5) K/uL Lymph # (Auto) (1.2-3.4) K/uL [place] # (Auto) (0.11-0.59) K/uL Eos # (Auto) (0-0.5) K/uL Baso # (Auto) (0-0.2) K/uL Blood Smear Review Giant Platelets Peripher Smr Path Cons Sodium (136-145) mmol/L Potassium (3.5-5.1) mmol/L Chloride (98-107) mmol/L Carbon Dioxide (21-32) mmol/L Anion Gap (3-11) BUN (7-18) mg/dl Creatinine (0.6-1.2) mg/dl Est Cr Clr Drug Dosing ml/min Est GFR ( Amer) Est GFR (Non-Af Amer) BUN/Creatinine Ratio (10-20) Glucose (70-99) mg/dl Estimat Average Glucose mg/dl Hemoglobin A1c (4.5-5.6) % Calcium (8.5-10.1) mg/dl Total Bilirubin 0.7 (0.2-1) mg/dl Direct Bilirubin 0.2 (0-0.2) mg/dl AST 56 H (15-37) U/L ALT 36 (12-78) U/L Alkaline Phosphatase 107 (45-117) U/L Total Protein 5.8 L (6.4-8.2) gm/dl Albumin 2.6 L (3.4-5.0) gm/dl A. phagocytophilum IgG Pending A. phagocytophilum IgM Pending A. phagocytophilum DNA Pending A.phagocytophilum Intrp Pending A. phagocytophilum Cmmt Pending Lyme Disease IgG Ab Negative (Negative) Lyme Disease IgM Ab Negative (Negative) 02/21/19 02/21/1902/21/19 Range/Units 07:00 07:00 07:00 WBC 2.44 L (4.8-10.8) K/uL RBC 4.08 L (4.2-5.4) M/uL Hgb 12.3 (12.0-16.0) g/dL Hct 36.3 L (37-47) % MCV 89.0 (80-100) fL MCH 30.1 (25-34) pg MCHC 33.9 (32-36) g/dL RDW Std Deviation 43.1 (36.4-46.3) fL RDW Coeff of Hermila 13.2 (11.5-14.5) % Plt Count 46 L (130-400) K/uL MPV 12.6 H (7.4-10.4) fL Immature Gran % (Auto) 0.8 % Neut % (Auto) 72.1 % Lymph % (Auto) 19.7 % [place] % (Auto) 6.6 % Eos % (Auto) 0.8 % Baso % (Auto) 0.0 % Immature Gran # (Auto) 0.02 (0.00-0.02) K/uL Neut # (Auto) 1.76 (1.4-6.5) K/uL Lymph # (Auto) 0.48 L (1.2-3.4) K/uL [place] # (Auto) 0.16 (0.11-0.59) K/uL Eos # (Auto) 0.02 (0-0.5) K/uL Baso # (Auto) 0.00 (0-0.2) K/uL Blood Smear Review Giant Platelets 1+ Peripher Smr Path Cons Sodium 139 (136-145) mmol/L Potassium 3.4 L (3.5-5.1) mmol/L Chloride 107 (98-107) mmol/L Carbon Dioxide 26 (21-32) mmol/L Anion Gap 7.0 (3-11) BUN 13 (7-18) mg/dl Creatinine 1.10 (0.6-1.2) mg/dl Est Cr Clr Drug Dosing 37.6 ml/min Est GFR ( Amer) 56.5 Est GFR (Non-Af Amer) 48.7 BUN/Creatinine Ratio 11.6 (10-20) Glucose 114 H (70-99) mg/dl Estimat Average Glucose mg/dl Hemoglobin A1c (4.5-5.6) % Calcium 8.9 (8.5-10.1) mg/dl Total Bilirubin 0.7 (0.2-1) mg/dl Direct Bilirubin 0.2 (0-0.2) mg/dl AST 55 H (15-37) U/L ALT 34 (12-78) U/L Alkaline Phosphatase 106 (45-117) U/L Total Protein 5.8 L (6.4-8.2) gm/dl Albumin 2.6 L (3.4-5.0) gm/dl A. phagocytophilum IgG A. phagocytophilum IgM A. phagocytophilum DNA A.phagocytophilum Intrp A. phagocytophilum Cmmt Lyme Disease IgG Ab (Negative) Lyme Disease IgM Ab (Negative) 02/21/19 02/20/19 02/19/19 Range/Units 06:59 06:19 18:56 WBC (4.8-10.8) K/uL RBC (4.2-5.4) M/uL Hgb (12.0-16.0) g/dL Hct (37-47) % MCV (80-100) fL MCH (25-34) pg MCHC (32-36) g/dL RDW Std Deviation (36.4-46.3) fL RDW Coeff of Hermila (11.5-14.5) % Plt Count (130-400) K/uL MPV (7.4-10.4) fL Immature Gran % (Auto) % Neut % (Auto) % Lymph % (Auto) % [place] % (Auto) % Eos % (Auto) % Baso % (Auto) % Immature Gran # (Auto) (0.00-0.02) K/uL Neut # (Auto) (1.4-6.5) K/uL Lymph # (Auto) (1.2-3.4) K/uL [place] # (Auto) (0.11-0.59) K/uL Eos # (Auto) (0-0.5) K/uL Baso # (Auto) (0-0.2) K/uL Blood Smear Review Giant Platelets Peripher Smr Path Cons Sodium (136-145) mmol/L Potassium (3.5-5.1) mmol/L Chloride (98-107) mmol/L Carbon Dioxide (21-32) mmol/L Anion Gap (3-11) BUN (7-18) mg/dl Creatinine 1.06 (0.6-1.2) mg/dl Est Cr Clr Drug Dosing 39.0 ml/min Est GFR ( Amer) 59.1 Est GFR (Non-Af Amer) 51.0 BUN/Creatinine Ratio (10-20) Glucose (70-99) mg/dl Estimat Average Glucose 120 mg/dl Hemoglobin A1c 5.8 H (4.5-5.6) % Calcium (8.5-10.1) mg/dl Total Bilirubin (0.2-1) mg/dl Direct Bilirubin (0-0.2) mg/dl AST (15-37) U/L ALT (12-78) U/L Alkaline Phosphatase (45-117) U/L Total Protein (6.4-8.2) gm/dl Albumin (3.4-5.0) gm/dl A. phagocytophilum IgG A. phagocytophilum IgM A. phagocytophilum DNA A.phagocytophilum Intrp A. phagocytophilum [facility] Lyme Disease IgG Ab (Negative) Lyme Disease IgM Ab (Negative) (1) Fever Fever type: unspecified Qualified Code(s): R50.9 - Fever, unspecified (2) Leukopenia Leukopenia type: unspecified Qualified Code(s): D72.819 - Decreased white blood cell count, unspecified
[2019-02-21] MEDS: DOXYCYCLINE HYCLATE 100 MG in DEXTROSE 5% 100 ML IV SCH ×2 (16:52→20:59)
[2019-02-21] MEDS: VANCOMYCIN HCL 1,000 MG in SODIUM CHLORIDE 0.9% 250 ML IV SCH (19:00)
[2019-02-21] MEDS ORDERED: KETOROLAC TROMETHAMINE 15 MG/ML VIAL IV ONE (22:25)
[2019-02-21] MEDS ORDERED: LACTATED RINGER'S 1,000 ML IV ONE (22:27)
[2019-02-22] MEDS: ACETAMINOPHEN 325 MG TAB PO SCH ×4 (02:45→20:13)
[2019-02-22] MEDS: PIPERACILLIN/TAZOBACTAM 3.375 GM in DEXTROSE 5% 100 ML IV SCH (04:31)
[2019-02-22 06:59] LABS: Albumin Level 2.3 gm/dl (3.4-5.0); BUN Creatinine Ratio 13.1 (10-20); Bilirubin Direct 0.2 mg/dl (0-0.2); Calcium 8.6 mg/dl (8.5-10.1); Creatinine Clr Calc Pharmacy 50.4 ml/min; Est GFR (African American) 80.6; Est GFR (Non-African American) 69.5; Potassium 3.2 mmol/L (3.5-5.1)
[2019-02-22 07:01] LABS: Bilirubin,Total 0.7 mg/dl (0.2-1); Total Protein 5.2 gm/dl (6.4-8.2)
[2019-02-22 07:48] LABS: Hematocrit (blood only) 31.5 % (37-47); Hemoglobin 10.8 g/dL (12.0-16.0); Mean Corpuscular Hgb Conc 34.3 g/dL (32-36); Mean Corpuscular Volume 86.5 fL (80-100); Mean Platelet Volume 12.7 fL (7.4-10.4); Platelet Count 35 K/uL (130-400); RDW Coefficient of Variation 13.2 % (11.5-14.5); RDW Standard Deviation 42.6 fL (36.4-46.3); Red Blood Count 3.64 M/uL (4.2-5.4); White Blood Count 1.86 K/uL (4.8-10.8)
[2019-02-22 07:51] LABS: Basophils # (auto) 0.03 K/uL (0-0.2); Basophils % (auto) 1.6 %; Lymphocytes # (auto) 0.83 K/uL (1.2-3.4); Lymphocytes % (auto) 44.6 %; Monocytes # (auto) 0.37 K/uL (0.11-0.59); Monocytes % (auto) 19.9 %; Neutrophils # (auto) 0.63 K/uL (1.4-6.5); Neutrophils % (auto) 33.9 %; Platelet Estimate Decreased (Normal)
[2019-02-22] MEDS: FOLIC ACID 1 MG TAB PO SCH (08:14)
[2019-02-22] MEDS: DOXYCYCLINE HYCLATE 100 MG in DEXTROSE 5% 100 ML IV SCH ×2 (08:14→20:49)
[2019-02-22] MEDS ORDERED: POTASSIUM CHLORIDE 20 MEQ TABCR PO STA (08:56)
--- NOTE | 2019-02-22 11:24 | Infectious Disease Progress Nt ---
Date of Service February 22, 2019 Assessment & Plan (1) Fever: will continue vanco for one more day, if aspiration culture negative, will stop. blood cultures negative to date. suspect tick borne related, especially with smear now + for anaplasma. 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 will need 14 days total. follow cbc, lfts (although have been normal) fever better today. hopefully d/c in next 24-48 hours. Subjective son at bedside, feeling better today. wound culture negative to date, blood cultures also negative, remained with fevers overnight. currently afebrile. no pain in axilla. started on IV doxy last night due to + perph smear for Anaplasma (initially read as negative), son states she did remove a tick 1 week ago, patient did not report this previously. no abd pain, eating well. no n/v/d. no cp, sob, cough, wbc low today, 1.8 platelets 35, LFTS nml with exception of mild elevation of AST 41. no juandice. lyme screen negative, anaplasma seroigies pending. asking to go home. Review of Systems Review of Systems: All systems reviewed & are unremarkable except as noted in HPI & below Physical Exam Constitutional: WD/WN, vitals as above Eyes: PERRL, conjunctivae normal, anicteric sclerae ENMT: external ear and nose normal, oropharynx normal Neck: normal visual inspection Respiratory: normal respiratory effort, lungs clear to auscultation Cardiovascular: RRR, no murmur, no edema Gastrointestinal (Abdomen): normal bowel sounds, soft, nontender, no hepatosplenomegaly Musculoskeletal: no cyanosis or clubbing, extremities motor strength 5/5 Skin: no rashes, warm and dry Psychiatric: A+Ox3, euthymic affect Results & Data Vital Signs (Past 12 Hours) Vital Signs Temp Pulse Resp BP Pulse Ox 02/22/19 08:14 36.7 C 64 16 127/79 96 02/21/19 23:51 37.0 C 79 16 124/72 98 Laboratory Results Microbiology 02/20/19 09:00 Axilla,Right Gram Stain - Final 02/20/19 09:00 Axilla,Right Aerobic and Anaerobic Culture - Preliminary No growth to date. 02/19/19 19:14 Blood Blood Culture - Preliminary No growth to date. 02/19/19 18:56 Blood Blood Culture - Preliminary No growth to date. (1) Fever Fever type: unspecified Qualified Code(s): R50.9 - Fever, unspecified (2) Leukopenia Leukopenia type: unspecified Qualified Code(s): D72.819 - Decreased white blood cell count, unspecified
[2019-02-22] MEDS ORDERED: VANCOMYCIN TROUGH ONE ×2 (17:30→22:30)
[2019-02-22] MEDS: VANCOMYCIN HCL 1,000 MG in SODIUM CHLORIDE 0.9% 250 ML IV SCH ×3 (18:41→18:48)
--- NOTE | 2019-02-22 22:35 | Hospitalist Progress Note ---
Date of Service delayed entry date of service below February 22, 2019 Assessment & Plan (1) Fever: likely secondary to Anaplasmosis Periph smear: (+) cytoplasmic inclusion bodies serologies for Anaplasmosis, Lyme disease: pending started on Doxycycline IV 02/21/19 fever improving monitor Rule out infected seroma/hematoma, status post breast lumpectomy Status post drainage of fluid collection 02/20/2019 Follow-up drainage culture: Pending Follow-up blood culture:negative so far General surgery and ID consulted fever improving after Doxy started Zosyn discontinued, Vanco continued for now Pancytopenia CBC 5 days ago within normal limits Likely secondary to anaplasmosis Rule out secondary to bone marrow suppression secondary to underlying infection from infected seroma No signs of bleeding, shortness of breath or dizziness ANC decreased to 650-- neutropenic precautions Plt also decreased to 30k-- no bleeding monitor closely d/c when WBC, Plt further improves to avoid infection, bleeding in light of breast ca, recent breast surgery Elevated d-dimer CT angiogram negative for PE ultrasound Doppler of the legs: Negative for DVT DVT prophylaxis SCDs in light of thrombocytopenia SCDs, ambulation encouraged Disposition anticipate d/c home when medically stable discussed with patient and his at length and in detail they both agree, understand and are comfortable with plan of care all questions answered Subjective ff up for fever seen resting in bed, comfortable states she feels improved compared to previous day afebrile since AM denies chills no headache, chest pain, dyspnea, abdominal pain, dizziness denies bleeding denies pain over surgical site no other symptoms Review of Systems Review of Systems: All systems reviewed & are unremarkable except as noted in HPI & below Physical Exam Physical Exam: General- oriented x 3, not in distress, speaks in sentences with no effort or accessory muscle use Eyes- anicteric Neck- no JVD Lungs- clear breath sounds bilaterally Heart- normal rate, regular rhythm; no murmurs Breast- surgical site: wound healing well, no discharge, no edema/erythema/warmth/tenderness Abdomen- normal bowel sounds, nondistended, soft, nontender Extremities- no pretibial edema, no calf tenderness Neuro- alert, oriented x 2; no gross focal neurologic deficits Skin- warm & dry Results & Data Vital Signs (Past 12 Hours) Vital Signs Temp Pulse Resp BP Pulse Ox 02/22/19 20:12 36.9 C 02/22/19 15:40 36.8 C 65 16 117/74 96 Laboratory Results all noted reviewed (1) Fever Fever type: unspecified Qualified Code(s): R50.9 - Fever, unspecified
[2019-02-23] MEDS: ACETAMINOPHEN 325 MG TAB PO SCH ×3 (01:28→13:31)
[2019-02-23] MEDS: VANCOMYCIN HCL 1,000 MG in SODIUM CHLORIDE 0.9% 250 ML IV SCH (06:03)
[2019-02-23 06:30] LABS: BUN Creatinine Ratio 13.9 (10-20); Calcium 8.9 mg/dl (8.5-10.1); Creatinine Clr Calc Pharmacy 53.7 ml/min; Est GFR (African American) 86.9; Potassium 3.3 mmol/L (3.5-5.1)
[2019-02-23 07:03] LABS: Hematocrit (blood only) 31.2 % (37-47); Hemoglobin 10.9 g/dL (12.0-16.0); Mean Corpuscular Hgb Conc 34.9 g/dL (32-36); Mean Corpuscular Volume 85.7 fL (80-100); Mean Platelet Volume 13.5 fL (7.4-10.4); Platelet Count 50 K/uL (130-400); RDW Coefficient of Variation 13.5 % (11.5-14.5); RDW Standard Deviation 42.9 fL (36.4-46.3); Red Blood Count 3.64 M/uL (4.2-5.4); White Blood Count 3.87 K/uL (4.8-10.8)
[2019-02-23 07:16] LABS: Basophils # (auto) 0.02 K/uL (0-0.2); Basophils % (auto) 0.5 %; Eosinophils # (auto) 0.02 K/uL (0-0.5); Eosinophils % (auto) 0.5 %; Giant Platelets 1+; Immature Granulocytes # (auto) 0.01 K/uL (0.00-0.02); Immature Granulocytes % (auto) 0.3 %; Lymphocytes # (auto) 1.75 K/uL (1.2-3.4); Lymphocytes % (auto) 45.2 %; Monocytes # (auto) 0.42 K/uL (0.11-0.59); Monocytes % (auto) 10.9 %; Neutrophils # (auto) 1.65 K/uL (1.4-6.5); Neutrophils % (auto) 42.6 %
[2019-02-23] MEDS: FOLIC ACID 1 MG TAB PO SCH (08:07)
[2019-02-23] MEDS: DOXYCYCLINE HYCLATE 100 MG in DEXTROSE 5% 100 ML IV SCH (08:07)
[2019-02-23] MEDS ORDERED: POTASSIUM CHLORIDE 20 MEQ TABCR PO STA (08:25)
--- NOTE | 2019-02-23 11:23 | Infectious Disease Progress Nt ---
Date of Service February 23, 2019 Assessment & Plan (1) Fever: (2) Leukopenia: (3) S/P breast lumpectomy: (4) Anaplasmosis: continue doxy, will change to po. will need 14 days total. vanco d/c. will change to po and add probiotic, suspect diarrhea due to prevous zosyn over weekend. ok for d/c when otherwise stable. spoke with primary service. Subjective pt seen in followup, son and at bedside, asking to go home. feeling much better today, afebrile overngiht. ANC incrased to >1600, wbc, platelets improved. remains on IV doxy, eating better today. episode of diarrhea last night. no abd pain, no n/v. no cp, sob, cough. no pain at surgical site, no drainage. blood and wound cultures negative. vanco d/c. Review of Systems Review of Systems: All systems reviewed & are unremarkable except as noted in HPI & below Physical Exam Constitutional: WD/WN, vitals as above Eyes: PERRL, conjunctivae normal, anicteric sclerae ENMT: external ear and nose normal, oropharynx normal Neck: normal visual inspection Respiratory: normal respiratory effort, lungs clear to auscultation Cardiovascular: RRR, no murmur, no edema Gastrointestinal (Abdomen): normal bowel sounds, soft, nontender, no hepatosplenomegaly Musculoskeletal: no cyanosis or clubbing, extremities motor strength 5/5 Skin: no rashes, warm and dry Psychiatric: A+Ox3, euthymic affect Results & Data Vital Signs (Past 12 Hours) Vital Signs Temp Pulse Resp BP Pulse Ox 02/23/19 07:32 37.1 C 70 18 145/81 H 95 Laboratory Results Microbiology 02/20/19 09:00 Axilla,Right Gram Stain - Final 02/20/19 09:00 Axilla,Right Aerobic and Anaerobic Culture - Preliminary No growth to date. 02/19/19 19:14 Blood Blood Culture - Preliminary No growth to date. 02/19/19 18:56 Blood Blood Culture - Preliminary No growth to date. (1) Fever Fever type: unspecified Qualified Code(s): R50.9 - Fever, unspecified (2) Leukopenia Leukopenia type: unspecified Qualified Code(s): D72.819 - Decreased white blood cell count, unspecified
--- NOTE | 2019-02-23 11:59 | Hospitalist Progress Note ---
Date of Service February 23, 2019 Assessment & Plan (1) Fever: Fever on admission Suspected sepsis on this admission Anaplasmosis infection confirmed Periph smear: leukocytes with cytoplasmic inclusions consistent with anaplasmosis infection are all seen. the cytoplasmic inclusions consistent with Anaplasmosis are identified on [employer]. serologies for Anaplasmosis pending. Lyme serologies negative started on Doxycycline IV 02/21/19; Patient should take Doxycycline 100 mg twice a day for 12 more days to complete the total 14 day course of doxycyline. Patient may take probiotic with antibiotic. Patient should follow up with primary care doctor to repeat the CBC Patient should avoid NSAIDs such as naproxen until follow up with primary care care doctor 02/28/2019 3:10 PM Provider Luis Alberto Prado MD Department [facility], [facility] status post breast lumpectomy infected seroma/hematoma was ruled out Status post drainage of fluid collection 02/20/2019 was negative and the empiric Zosyn had been stopped on this admission and also Vancomycin order stopped on 02/23/19 as source if fever from Anaplasmosis follow up surgery clinic 03/03/2019 11:30 AM Provider Nayeli Bowman MD Department General Surgery, [facility] Pancytopenia (Leukopenia and Neutropenia improving, stable anemia) ANC decreased to 650 on this admission and now neutropenia is resolved Platelets also decreased to to as low as 30k and now uptrending to 50K- stable anemia, stable hemoglobin Elevated d-dimer on this admission CT angiogram negative for PE ultrasound Doppler of the legs: Negative for DVT DVT prophylaxis SCDs and ambulation while in the hospital Discharge Diagnosis Fever, suspected sepsis, Anaplasmosis, Pancytopenia (Leukopenia and Neutropenia improving, stable anemia) Discharge Instructions Patient should take Doxycycline 100 mg twice a day for 12 more days. Patient may take probiotic with antibiotic Patient should follow up with primary care doctor to repeat the CBC Patient should avoid NSAIDs such as naproxen until follow up with primary care care doctor 02/28/2019 3:10 PM Provider Luis Alberto Prado MD Department [facility], [facility] 03/03/2019 11:30 AM Provider Nayeli Bowman MD Department General Surgery, [facility] Subjective Patient with 2 episodes of diarrhea today. otherwise doing well. no vomiting. no abdominal pain. no chest pain. no shortness of breath. discussed with patient and her family about infectious disease recommendations to be discharged from the hospital. patient believes she can tolerate oral hydration in case any more diarrhea. Physical Exam Constitutional: WD/WN, vitals as above Eyes: PERRL, conjunctivae normal, anicteric sclerae EOM intact bilaterally ENMT: external ear and nose normal, oropharynx normal Neck: trachea midline, no thyromegaly Respiratory: normal respiratory effort, lungs clear to auscultation Cardiovascular: RRR, no murmur, no edema Gastrointestinal (Abdomen): normal bowel sounds, soft, nontender, no hepatosplenomegaly Musculoskeletal: Head/Neck/Chest: normocephalic and head atraumatic Neurologic: PERRL, EOMI, accommodation nl, no face palsy, no dysarthria CN's II-XI intact bilaterally Psychiatric: A+Ox3, euthymic affect Results & Data Vital Signs (Past 12 Hours) Vital Signs Temp Pulse Resp BP Pulse Ox 02/23/19 07:32 37.1 C 70 18 145/81 H 95 (1) Fever Fever type: unspecified Qualified Code(s): R50.9 - Fever, unspecified
[2019-02-23] MEDS ORDERED: LACTOBACILLUS ACIDOPHILUS 1 GM PACK PO SCH (12:00)
--- NOTE | 2019-02-23 12:08 | Discharge Summary ---
Date of Service February 23, 2019 Admission HPI Per Admitting Provider History obtained from patient, family, and records. Medical history significant for breast cancer right status post recent surgery, psoriatic arthritis as per records, skin cancer as per records, memory loss. Patient underwent outpatient right needle localized lumpectomy and sentinel node biopsy for right breast cancer located in ectopic breast tissue in the right axilla at [facility] 4 days ago. Patient noted fatigue symptoms 2 days ago, subsequently noted fever chills. No concerns with postop right breast site. No chest pain, S OB, abdominal pain, diarrhea, dysuria. Patient received Vancomycin and Cefepime at the ER. 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 Admission Exam Per Admitting Provider GENERAL: Comfortable, no respiratory distress, pleasant SKIN: Normal color, warm HEENT: [place] palpebral conjunctivae, repetitive blinking, no ptosis, dry buccal mucosa NECK : Supple, no tenderness CHEST : CTA, no overt tenderness right chest wall, well coaptated incision, right axillary extension HEART : RRR, no obvious murmurs ABDOMEN: Some distention, nontender EXTREMITIES : Chronic bilateral LE swelling, no LE tenderness, no other conspicuous deformities noted NEUROLOGIC : Coherent, no facial asymmetry, no other gross focality Principal Diagnosis Fever, suspected sepsis, Anaplasmosis, Pancytopenia (Leukopenia and Neutropenia improving, stable anemia) Discharge Exam Constitutional WD/WN, vitals as above Eyes PERRL, conjunctivae normal, anicteric sclerae EOM intact bilaterally ENMT external ear and nose normal, oropharynx normal Neck trachea midline, no thyromegaly Respiratory normal respiratory effort, lungs clear to auscultation Cardiovascular RRR, no murmur, no edema Gastrointestinal (Abdomen) normal bowel sounds, soft, nontender, no hepatosplenomegaly Musculoskeletal Head/Neck/Chest: normocephalic and head atraumatic Neurologic PERRL, EOMI, accommodation nl, no face palsy, no dysarthria CN's II-XI intact bilaterally Psychiatric A+Ox3, euthymic affect Discharge Data Allergies Allergy/AdvReac Type Severity Reaction Status Date / Time No Known Allergies Allergy Unknown Verified 12/29/18 06:51 Consultations 02/19/19 23:18 ED Decision to Admit Stat 02/20/19 00:24 Consult General Surgery Routine 02/20/19 06:48 Consult Infectious Diseases Routine Consult Radiology Routine Ordered Studies 02/19/19 20:11 CT angio chest PE protocol Stat 02/20/19 08:15 US FNA w/img 1st lesion Routine 02/20/19 11:24 US venous doppler LE BI Stat Hospital Course (1) Fever: Fever on admission Suspected sepsis on this admission Anaplasmosis infection confirmed Periph smear: leukocytes with cytoplasmic inclusions consistent with anaplasmosis infection are all seen. the cytoplasmic inclusions consistent with Anaplasmosis are identified on CellaVision. serologies for Anaplasmosis pending. Lyme serologies negative started on Doxycycline IV 02/21/19; Patient should take Doxycycline 100 mg twice a day for 12 more days to complete the total 14 day course of doxycyline. Patient may take probiotic with antibiotic. Patient should follow up with primary care doctor to repeat the CBC Patient should avoid NSAIDs such as naproxen until follow up with primary care care doctor 02/28/2019 3:10 PM Provider Luis Alberto Prado MD Department [facility] status post breast lumpectomy infected seroma/hematoma was ruled out Status post drainage of fluid collection 02/20/2019 was negative and the empiric Zosyn had been stopped on this admission and also Vancomycin order stopped on 02/23/19 as source if fever from Anaplasmosis follow up surgery clinic 03/03/2019 11:30 AM Provider Nayeli Bowman MD Department General Surgery, [facility] Pancytopenia (Leukopenia and Neutropenia improving, stable anemia) ANC decreased to 650 on this admission and now neutropenia is resolved Platelets also decreased to to as low as 30k and now uptrending to 50K- stable anemia, stable hemoglobin Elevated d-dimer on this admission CT angiogram negative for PE ultrasound Doppler of the legs: Negative for DVT DVT prophylaxis SCDs and ambulation while in the hospital Discharge Diagnosis Fever, suspected sepsis, Anaplasmosis, Pancytopenia (Leukopenia and Neutropenia improving, stable anemia) Discharge Instructions Patient should take Doxycycline 100 mg twice a day for 12 more days. Patient may take probiotic with antibiotic Patient should follow up with primary care doctor to repeat the CBC Patient should avoid NSAIDs such as naproxen until follow up with primary care care doctor 02/28/2019 3:10 PM Provider Luis Alberto Prado MD Department [facility] 03/03/2019 11:30 AM Provider Nayeli Bowman MD Department General Surgery, [facility] Total Time Total Time Spent Total Time Spent (In Minutes): 40 minutes Total Time Includes: Examination of the Patient, Discharge Planning, Medication Reconciliation and Communication With Other Providers Discharge Plan Discharge Items Patient Disposition: Home - Self-Care Reason For Visit: FEVER Discharge Diagnosis: Fever, suspected sepsis, Anaplasmosis, Pancytopenia (Leukopenia and Neutropenia improving, stable anemia) Condition: Good Discharge Goals: Improve disease control Activity: Resume your previous activity Non-emergency contact: Primary Care Provider Call non-emergency contact if: you have any medication questions Follow-up/Referrals: Luis Alberto Prado MD [Primary Care Provider] - Diet: Regular Addtl Provider Instructions: Patient should take Doxycycline 100 mg twice a day for 12 more days. Patient may take probiotic with antibiotic Patient should follow up with primary care doctor to repeat the CBC Patient should avoid NSAIDs such as naproxen until follow up with primary care care doctor 02/28/2019 3:10 PM Provider Luis Alberto Prado MD Department [facility] 03/03/2019 11:30 AM Provider Nayeli Bowman MD Department General Surgery, [facility] Prescriptions: New doxycycline hyclate 100 mg Capsule 100 mg PO BID 12 Days Qty: 24 RF: 0 Floranex 100 million cell Granules In Packet 1 g PO TIDM 10 Days Qty: 30 RF: 0 Continued folic acid 1 mg Tablet 1 mg PO DAILY RF: 0 acetaminophen [Tylenol] 325 mg Tablet 650 mg PO QID PRN (Reason: Fever Or Pain) RF: 0 hydrocodone-acetaminophen [[place]] 5-325 mg tablet 1 tab PO UD PRN (Reason: Pain) RF: 0 Excedrin Migraine 250-250-65 mg Tablet 1 tab PO BID PRN (Reason: Migraine Headache) RF: 0 Discontinued naproxen sodium [Aleve] 220 mg Tablet 220 mg PO BID PRN (Reason: Pain) RF: 0 Stand-Alone Forms: [facility] Discharge Orders: Discharge Order (Routine); Ordered 02/23/19 Ordered By: Richy Moreno Admission Data Admit Date/Time: 02/20/19 03:16 Attending Provider: Richy Moreno Admit Provider: Chris Juares Primary Care Provider: Luis Alberto Prado Other Providers: Chris Juares ; Woodrow Hwang ; Onofre Burnette ; Jennifer Penaloza ; Alona Kaur ; Dolores Desir ; Hussein Denson ; Jacinto Levy ; Orion Russo ; Bacilio Andino ; Pierre Darling ; Luis Alberto Smith ; Yonathan Reddy ; Sulma Hammond ; Aroldo Overton ; Pete Colon ; Jian Inman ; Woodrow Rodriguez ; Pierre Jurado ; Trae Branham ; Craig Villarreal ; Chapito Talbert ; Yordy José ; Nhan Piña ; Mima Spears ; Santy Del Angel Service: Medical
[2019-02-23] MEDS ORDERED: DOXYCYCLINE HYCLATE 100 MG CAP PO SCH ×2 (21:00)
[2019-02-24] MEDS ORDERED: SACCHAROMYCES BOULARDII 250 MG CAP PO SCH (09:00)
[2019-02-25 21:15] LABS: Anaplasma phagocytophila IgM <1:20 (<1:20)
== END 2019-02-23 13:38 | disposition home or self-care (01) | DRG 872 ==
LOC: 2N 17:32 → ED 17:32 → 2N 02-20 00:47 → SUATTDRO 02-20 03:16 → 4E 02-20 18:17

== ENCOUNTER 2025-04-03 17:18 | Inpatient (IN) ==
--- NOTE | 2025-04-03 17:48 | Emergency Department Note ---
Impression & Plan Weakness, Dementia ED Provider Note Provider: Meek Wheat MD CHIEF COMPLAINT: Weak, increased confusion HISTORY OF PRESENT ILLNESS: Patient is a 84-year-old female history of dementia, arthritis presenting here today via ambulance from home. Patient reported to have fairly advanced dementia according to and son are present 5 most of history. Patient results unable to tell me very much. She denies pain at this time. reports that starting about a week ago she seemed to be more weak and fatigued than normal. He notes some strong urine and was started on a sulfa antibiotic last Thursday. This seemed to improve the urine and she improved on Thursday and Thursday but started to slide back yesterday seeming more weak unable to get a bed. No falls. Today even with son's help they were unable to get her in the chair and stay there. She has been able to take the medicine and he did drink some but she is more confused than normal and more weak than normal. They have also been concerned a bit because she has not had a bowel movement in 2 to 3 days. Patient however denies any chest abdominal or head pain. Denies breathing issue. States maybe a little bit of congestion. PAST MEDICAL HISTORY: As noted above MEDICATIONS: Reviewed home medications SOCIAL HISTORY: Lives at home with PHYSICAL EXAM: GENERAL: alert in no acute distress on stretcher but not oriented to person or birthday. Head: normocephalic and atraumatic EYES: No injection, discharge or icterus. EOMI. NECK: Trachea midline. Supple. ENT: Mucous membranes pink and moist. LUNGS: Airway patent. No retractions. Breath sounds clear with good air entry bilaterally. HEART: Regular rate and rhythm. No chest wall tenderness ABDOMEN: Soft maybe some slight lower abdominal tenderness but no guarding. SKIN: Acyanotic, warm, dry, without rashes EXTREMITIES: Without swelling, tenderness or deformity NEUROLOGICAL: No focal deficits. No aphasia. No facial droop or slurred speech. Ambulatory. EK beats per minute. Normal sinus rhythm with sinus arrhythmia. No PVC. No acute ST segment elevation or depression QTc 404. CONTINUOUS CARDIAC MONITORING: was ordered and showed a heart rate of 80s bpm in normal sinus rhythm occasional sinus arrhythmia Patient's laboratory studies and imaging reviewed. Differential includes Infection, dehydration, metabolic abnormality, hypo/hyperglycemia, electrolyte disturbance, anemia, hypoxia, cardiac sources, intracerebral event, toxicologic, neurologic, as well as other pathologies. IMPRESSION/MEDICAL DECISION MAKING: Patient with increased weakness and some slightly worsened memory issues but has underlying dementia according to family. No falls reported. Maybe a little bit of lower abdominal discomfort and several days of constipation. No vomiting reported or high fevers. Is on treatment for UTI with Bactrim and urine reportedly has improved some. Will obtain urine sample basic blood work blood cultures here to look for possible explanation. Given some IV fluids for hydration although she has been eating and drinking some according to family. CT of the head obtained given her weakness as well as CT abdomen pelvis. Blood work here without anemia or leukocytosis. No severe electrolyte abnormalities noted signs of acute significant renal dysfunction creatinine 1.1. Lactate minimally elevated 2.3 but did receive 500 cc IV saline fluid bolus. No evidence of acute hepatitis or pancreatitis. Procalcitonin not severely elevated TSH is normal. Troponin returns normal. CT of the head and abdomen pelvis radiology report without acute intracranial abnormality or significant acute intra-abdominal process. Some moderate stool burden is noted. [facility] is darkened and somewhat concentrated but no evidence of infection. He received IV fluids and lactates improved on reassessment. Updated family with imaging and blood work findings and given her weakness making difficult for care at home will bring into the hospital for further evaluation and care assistance. Hospitalist team was consulted to see the patient. DIAGNOSIS: Weakness, dementia DISPOSITION: Hospitalist will evaluate Patient family was updated. Past Med/Surg History Problem List (Updated 04/03/25 @ 22:02 by Chris Juares MD) Altered mental status Dementia (Acute) Weakness (Acute) Anaplasmosis Sepsis Fever (Acute) Leukopenia (Acute) Thrombocytopenia (Acute) S/P breast lumpectomy (Acute) Encounter for pre-operative examination Chest pain (Acute 05/16/14) Chest pain (Acute) Psoriatic arthritis (Chronic) Medical History (Updated 04/03/25 @ 22:02 by Chris Juares MD) Skin cancer Seroma of breast Right breast Breast cancer, right breast 12/29/18 Rosacea Osteoporosis GERD (gastroesophageal reflux disease) Migraines Psoriatic arthritis Hepatitis H/O HEPATITIS A CHILD, UNKNOWN KIND. History of hepatitis as a child Surgical History (Updated 03/22/19 @ 08:46 by Hiwot Romero RN) History of cholecystectomy Status post surgery Re-excision right lumpectomy for positive margin on 03/16/19 Status post partial mastectomy of right breast With SLN biopsy on 02/16/19 Dr. Bowman History of appendectomy History of cataract surgery LEFT CATARACT History of cholecystectomy History of colonoscopy Social History Smoking Status: Never smoker Second Hand Exposure: No; Do You Dip or Chew Tobacco: No; Hx Alcohol Use: Yes Alcohol type: wine and hard liquor Hx Substance Use: No Preferred Language: Yakut Communication Ability: Effective Mate Fourth Required: No Beliefs That Will Affect Care: None Current Living Situation: Spouse Feels Safe at Home: Declines to Answer Assistive Devices: None Allergies Allergies Allergy/AdvReac Type Severity Reaction Status Date / Time No Known Allergies Allergy Unknown Verified 12/29/18 06:51 Home Meds Home Medications Medication Instructions Recorded Confirmed [id number] 250 1 tab PO BID PRN Migraine Headache 02/19/19 04/03/25 mg-250 mg-65 mg tablet (Excedrin Migraine) alendronate 70 mg tablet 70 mg PO WK 04/03/25 04/03/25 memantine 10 mg tablet 10 mg PO BID 04/03/25 04/03/25 metronidazole 0.75 % topical cream 1 applic topical BID 04/03/25 04/03/25 sulfamethoxazole 800 1 tab PO BID 04/03/25 04/03/25 mg-trimethoprim 160 mg tablet triamcinolone acetonide 0.1 % 1 applic topical BID PRN Itching 04/03/25 04/03/25 topical cream Results & Data (ED) Vital Signs Vital Signs - 24 hr 04/03/25 17:33 04/03/25 17:50 04/03/25 18:01 Temperature 36.6 C Temperature Source Oral Pulse Rate 85 88 Pulse Rate from SpO2 Sensor Respiratory Rate 24 Blood Pressure 123/98 Blood Pressure Mean 106 Pulse Oximetry 98 98 Oxygen Delivery Method Room Air Room Air Sepsis Recent Fever Within 48 Hours No Sepsis New/Unexplained Change in Mental Status N/A Sepsis Action Taken by Nursing No Action Required 04/03/25 19:33 04/03/25 20:16 04/03/25 20:30 Temperature Temperature Source Pulse Rate 83 80 Pulse Rate from SpO2 Sensor Respiratory Rate 16 20 Blood Pressure 136/95 151/89 H 139/84 Blood Pressure Mean 108 105 109 Pulse Oximetry 93 Oxygen Delivery Method Room Air Sepsis Recent Fever Within 48 Hours Sepsis New/Unexplained Change in Mental Status Sepsis Action Taken by Nursing 04/03/25 20:57 04/03/25 21:29 Temperature Temperature Source Pulse Rate 80 85 Pulse Rate from SpO2 Sensor 80 Respiratory Rate 20 Blood Pressure 152/69 H Blood Pressure Mean 96 Pulse Oximetry 96 Oxygen Delivery Method Room Air Sepsis Recent Fever Within 48 Hours Sepsis New/Unexplained Change in Mental Status Sepsis Action Taken by Nursing Laboratory Data 04/03/25 17:45 04/03/25 17:45 Lab Results 04/03/25 04/03/25 04/03/25 Range/Units 17:45 17:53 19:46 WBC 9.14 (4.8-10.8) K/ul RBC 4.51 (4.20-5.40) M/uL Hgb 13.6 (12.0-16.0) g/dl POC Hgb 13.9 (12.0-16.0) g/dl Hct 39.9 (37.0-47.0) % POC Hct 41 (37-47) % MCV 88.5 (80.0-100.0) fL MCH 30.2 (25.0-34.0) pg MCHC 34.1 (32.0-36.0) g/dL RDW Std Deviation 41.5 (36.4-46.3) fL RDW Coeff of Hermila 12.7 (11.5-14.5) % Plt Count 196 (130-400) K/uL MPV 11.5 (9.4-12.4) fL Immature Gran % (Auto) 0.3 % Neut % (Auto) 58.4 % Lymph % (Auto) 30.7 % [place] % (Auto) 10.3 % Eos % (Auto) 0.0 % Baso % (Auto) 0.3 % Neut # (Auto) 5.33 (1.40-6.50) K/uL Lymph # (Auto) 2.81 (1.20-3.40) K/uL [place] # (Auto) 0.94 H (0.11-0.59) K/uL Eos # (Auto) 0.00 (0.00-0.50) K/uL Baso # (Auto) 0.03 (0.00-0.20) K/uL Immature Gran # (Auto) 0.03 (0.01-0.20) K/uL PT 10.4 (9.0-12.0) Seconds INR 1.0 (0.9-1.1) POC Sodium 139 (135-144) mmol/L Sodium 139 (136-145) mmol/L POC Potassium 3.9 (3.3-5.0) mmol/L Potassium 3.9 (3.5-5.1) mmol/L POC Chloride 107 (101-112) mmol/L Chloride 105 (98-107) mmol/L Carbon Dioxide 23 (21-32) mmol/L POC Total CO2 21 L (24-31) mmol/L Anion Gap 11 (3-11) POC Anion Gap 16.0 (16-25) mmol/L POC BUN 27 H (7-18) mg/dl BUN 29 H (6-23) mg/dl Creatinine 1.14 (0.6-1.2) mg/dl POC Creatinine 1.3 (0.6-1.3) mg/dl Est Cr Clr Drug Dosing 35.3 ml/min eGFR 48.06 BUN/Creatinine Ratio 25.4 H (10-20) Glucose 128 H (70-99(Fasting)) mg/dl POC Glucose (other) 130 H (70-99) mg/dl Lactate 2.3 H* 1.6 (0.4-2.0) mmol/L Calcium 10.3 (8.6-10.3) mg/dl POC Ioniz Calcium Ashtyn 1.29 (1.12-1.32) mmol/l Magnesium 2.4 (1.7-2.4) mg/dl Total Bilirubin 0.8 (0.2-1.0) mg/dl AST 18 (13-39) U/L ALT 12 (7-52) U/L Alkaline Phosphatase 83 (34-104) U/L Troponin I High Sens 4.5 (0-14) pg/ml Total Protein 7.5 (6.0-8.3) gm/dl Albumin 4.3 (3.4-5.0) gm/dl Globulin 3.2 (2.5-4.0) gm/dl Albumin/Globulin Ratio 1.3 (0.9-2) Lipase 43 (11-82) U/L Procalcitonin 0.11 (0-0.5) ng/ml TSH 3.912 (0.300-4.500) uIu/ml Urine Color Urine Appearance (Clear) Urine pH (4.5-7.5) Ur Specific Eure (1.000-1.030) Urine Protein (Negative) Urine Glucose (UA) (Negative) Urine Ketones (Negative) Urine Blood (Negative) Urine Nitrite (Negative) Urine Bilirubin (Negative) Urine Urobilinogen (Negative) Ur Leukocyte Esterase (Negative) Urine WBC (Auto) (0-5) /hpf Urine RBC (Auto) (0-2) /hpf U Hyaline Cast (Auto) (0-2) /lpf U Epithel Cells (Auto) (0-2) /hpf Urine Bacteria (Auto) (None Seen) Urine Comment 04/03/25 Range/Units 20:00 WBC (4.8-10.8) K/ul RBC (4.20-5.40) M/uL Hgb (12.0-16.0) g/dl POC Hgb (12.0-16.0) g/dl Hct (37.0-47.0) % POC Hct (37-47) % MCV (80.0-100.0) fL MCH (25.0-34.0) pg MCHC (32.0-36.0) g/dL RDW Std Deviation (36.4-46.3) fL RDW Coeff of Hermila (11.5-14.5) % Plt Count (130-400) K/uL MPV (9.4-12.4) fL Immature Gran % (Auto) % Neut % (Auto) % Lymph % (Auto) % [place] % (Auto) % Eos % (Auto) % Baso % (Auto) % Neut # (Auto) (1.40-6.50) K/uL Lymph # (Auto) (1.20-3.40) K/uL [place] # (Auto) (0.11-0.59) K/uL Eos # (Auto) (0.00-0.50) K/uL Baso # (Auto) (0.00-0.20) K/uL Immature Gran # (Auto) (0.01-0.20) K/uL PT (9.0-12.0) Seconds INR (0.9-1.1) POC Sodium (135-144) mmol/L Sodium (136-145) mmol/L POC Potassium (3.3-5.0) mmol/L Potassium (3.5-5.1) mmol/L POC Chloride (101-112) mmol/L Chloride (98-107) mmol/L Carbon Dioxide (21-32) mmol/L POC Total CO2 (24-31) mmol/L Anion Gap (3-11) POC Anion Gap (16-25) mmol/L POC BUN (7-18) mg/dl BUN (6-23) mg/dl Creatinine (0.6-1.2) mg/dl POC Creatinine (0.6-1.3) mg/dl Est Cr Clr Drug Dosing ml/min eGFR BUN/Creatinine Ratio (10-20) Glucose (70-99(Fasting)) mg/dl POC Glucose (other) (70-99) mg/dl Lactate (0.4-2.0) mmol/L Calcium (8.6-10.3) mg/dl POC Ioniz Calcium Ashtyn (1.12-1.32) mmol/l Magnesium (1.7-2.4) mg/dl Total Bilirubin (0.2-1.0) mg/dl AST (13-39) U/L ALT (7-52) U/L Alkaline Phosphatase (34-104) U/L Troponin I High Sens (0-14) pg/ml Total Protein (6.0-8.3) gm/dl Albumin (3.4-5.0) gm/dl Globulin (2.5-4.0) gm/dl Albumin/Globulin Ratio (0.9-2) Lipase (11-82) U/L Procalcitonin (0-0.5) ng/ml TSH (0.300-4.500) uIu/ml Urine Color Yellow Urine Appearance Clear (Clear) Urine pH 5.0 (4.5-7.5) Ur Specific Eure > 1.045 H (1.000-1.030) Urine Protein Trace H (Negative) Urine Glucose (UA) Negative (Negative) Urine Ketones Negative (Negative) Urine Blood Negative (Negative) Urine Nitrite Negative (Negative) Urine Bilirubin Negative (Negative) Urine Urobilinogen Negative (Negative) Ur Leukocyte Esterase Negative (Negative) Urine WBC (Auto) 0-5 (0-5) /hpf Urine RBC (Auto) 0-2 (0-2) /hpf U Hyaline Cast (Auto) 0-2 (0-2) /lpf U Epithel Cells (Auto) 3-5 H (0-2) /hpf Urine Bacteria (Auto) None Seen (None Seen) Urine Comment Administered Medications Discontinued Medications Sodium Chloride (Nss) 500 mls @ 999 mls/hr IV .Q31M LAUREN Stop: 04/03/25 18:15 Last Infusion: 04/03/25 19:59 Dose: Infused Documented By: Admin: 04/03/25 18:22 Dose: 999 mls/hr Documented By: Ioversol (Optiray 320 100ml) 93 ml IV ONCE ONE Stop: 04/03/25 18:17 Last Admin: 04/03/25 18:16 Dose: 93 ml Documented By: POLO Imaging Data Radiologist's Impression: Chest X-Ray 04/03/25 17:39 EXAM: Portable AP chest radiograph TECHNIQUE: AP portable radiograph of the chest was obtained. INDICATION: Shortness of breath. Weakness. Comparison: Thoracic CT February 19, 2019. FINDINGS: LINES and TUBES: None CARDIOVASCULAR: Cardiac silhouette is stably and mildly enlarged in size. Atherosclerosis of the thoracic aorta LUNGS/PLEURA: No focal consolidation identified. Chronic interstitial changes of the lungs. No significant pleural fluid. No discernible pneumothorax. OSSEOUS/OTHER: No displaced acute osseous process identified. IMPRESSION: Unchanged mild cardiac enlargement. No focal consolidation identified in the lungs. Electronically signed by Yovani Resendiz 04-03-2025 6:[address] 04/03/25 17:40 CT head without contrast History: Altered mental status Comparison: None Technique: Using multidetector thin collimation helical acquisition technique, axial, coronal and sagittal CT images from the skull base to the vertex were obtained without intravenous contrast. Dose reduction techniques were achieved by using automatic exposure control and/or adjustment of mA and/or kV according to patient size and/or use of iterative reconstruction technique. Findings: No intracranial hemorrhage, mass-effect, or midline shift. The ventricles are proportionate to the cerebral sulci. The awan to white matter differentiation of the cerebral hemispheres is preserved. The basal cisterns are patent. Moderate to marked cerebral atrophy. The visualized paranasal sinuses are clear. Mastoid air cells are clear. Impression: No acute intracranial pathology. Electronically signed by Jose Friedman 04-03-2025 6:38 PM Abdomen/Pelvis CT 04/03/25 17:41 EXAMINATION: CT of the abdomen and pelvis performed after the administration of IV contrast TECHNIQUE: Helical CT images from the lung bases through the symphysis pubis were obtained with contrast. Coronal and sagittal reformatted images were generated at a workstation for further assessment. Dose reduction techniques were achieved by using automatic exposure control and/or adjustment of mA and/or kV according to patient size and/or use of iterative reconstruction technique. COMPARISON: None HISTORY: Abdominal pain FINDINGS: Lower chest: No consolidation. No pleural effusion or pneumothorax. Liver: No suspicious liver lesions. Portal veins appear patent. Gallbladder: No gallstones. No evidence of acute cholecystitis. Spleen: Normal size. Pancreas: No suspicious pancreatic lesions. The pancreatic duct is not dilated. Adrenal glands: No adrenal nodules. Kidneys: No hydronephrosis or obstructing renal stones. Bladder / Pelvic organs: Unremarkable. Bowel: No bowel obstruction. No abnormal bowel wall thickening. The appendix is not visualized. There is moderate stool. Lymph nodes: No retroperitoneal, mesenteric, or pelvic lymphadenopathy. Peritoneum / Retroperitoneum: No free fluid or air within the abdomen. Vessels: No infrarenal aortic aneurysm. Bones and soft tissues: No suspicious lesion in the bones. IMPRESSION: No acute intra-abdominal process Electronically signed by Jose Friedman 04-03-2025 6:40 PM Discharge Plan Visit Data Chief Complaint: Altered Mental Status ED Provider: Meek Wheat Discharge Problem: Weakness, Dementia Patient Disposition: Being Evaluated by Hospitalist Condition: Fair Forms Stand Alone Forms: [facility] Prescriptions Prescriptions: No Action Excedrin Migraine 250-250-65 mg Tablet 1 tab PO BID PRN (Reason: Migraine Headache) alendronate 70 mg tablet 70 mg PO WK Rx Instructions: with 8 ounces of water 30 minutes before first meal of the day, Remain upright after taking tablet sulfamethoxazole-trimethoprim 800-160 mg tablet 1 tab PO BID Rx Instructions: 7 Day course; started 03/29/2025 triamcinolone acetonide 0.1 % Cream 1 applic TOPICAL BID PRN (Reason: Itching) metronidazole 0.75 % cream 1 applic TOPICAL BID memantine 10 mg tablet 10 mg PO BID Referrals Referrals: Luis Alberto Prado MD [Primary Care Provider] -
[2025-04-03 18:04] LABS: Basophils # (auto) 0.03 K/uL (0.00-0.20); Basophils % (auto) 0.3 %; Hematocrit (blood only) 39.9 % (37.0-47.0); Hemoglobin 13.6 g/dl (12.0-16.0); Immature Granulocytes # (auto) 0.03 K/uL (0.01-0.20); Immature Granulocytes % (auto) 0.3 %; Lymphocytes # (auto) 2.81 K/uL (1.20-3.40); Lymphocytes % (auto) 30.7 %; Mean Corpuscular Hemoglobin 30.2 pg (25.0-34.0); Mean Corpuscular Hgb Conc 34.1 g/dL (32.0-36.0); Mean Corpuscular Volume 88.5 fL (80.0-100.0); Mean Platelet Volume 11.5 fL (9.4-12.4); Monocytes # (auto) 0.94 K/uL (0.11-0.59); Monocytes % (auto) 10.3 %; Neutrophils # (auto) 5.33 K/uL (1.40-6.50); Neutrophils % (auto) 58.4 %; Platelet Count 196 K/uL (130-400); RDW Coefficient of Variation 12.7 % (11.5-14.5); RDW Standard Deviation 41.5 fL (36.4-46.3); Red Blood Count 4.51 M/uL (4.20-5.40); White Blood Count 9.14 K/ul (4.8-10.8)
[2025-04-03 18:05] LABS: iSTAT Creatinine 1.3 mg/dl (0.6-1.3); iSTAT Hemoglobin 13.9 g/dl (12.0-16.0); iSTAT Ionized Calcium 1.29 mmol/l (1.12-1.32); iSTAT Potassium 3.9 mmol/L (3.3-5.0)
[2025-04-03] MEDS: OPTIRAY 320 100ml IV ONE (18:16)
[2025-04-03 18:19] LABS: Prothrombin Time 10.4 Seconds (9.0-12.0)
[2025-04-03] MEDS: SODIUM CHLORIDE 0.9% 500 ML IV SCH (18:22)
[2025-04-03 18:26] LABS: Albumin Level 4.3 gm/dl (3.4-5.0); Bilirubin,Total 0.8 mg/dl (0.2-1.0); Calcium 10.3 mg/dl (8.6-10.3); Magnesium 2.4 mg/dl (1.7-2.4); Potassium 3.9 mmol/L (3.5-5.1)
[2025-04-03 18:33] LABS: Albumin Globulin Ratio 1.3 (0.9-2); BUN Creatinine Ratio 25.4 (10-20); Creatinine Clr Calc Pharmacy 35.3 ml/min; Globulin 3.2 gm/dl (2.5-4.0); Total Protein 7.5 gm/dl (6.0-8.3)
--- NOTE | 2025-04-03 18:33 | XRay Report ---
EXAM: Portable AP chest radiograph TECHNIQUE: AP portable radiograph of the chest was obtained. INDICATION: Shortness of breath. Weakness. Comparison: Thoracic CT February 19, 2019. FINDINGS: LINES and TUBES: None CARDIOVASCULAR: Cardiac silhouette is stably and mildly enlarged in size. Atherosclerosis of the thoracic aorta LUNGS/PLEURA: No focal consolidation identified. Chronic interstitial changes of the lungs. No significant pleural fluid. No discernible pneumothorax. OSSEOUS/OTHER: No displaced acute osseous process identified. IMPRESSION: Unchanged mild cardiac enlargement. No focal consolidation identified in the lungs. Electronically signed by Yovani Resendiz 04-03-2025 6:32 PM
[2025-04-03 18:35] LABS: Troponin I High Sensitivity 4.5 pg/ml (0-14)
--- NOTE | 2025-04-03 18:39 | CT Scan Report ---
CT head without contrast History: Altered mental status Comparison: None Technique: Using multidetector thin collimation helical acquisition technique, axial, coronal and sagittal CT images from the skull base to the vertex were obtained without intravenous contrast. Dose reduction techniques were achieved by using automatic exposure control and/or adjustment of mA and/or kV according to patient size and/or use of iterative reconstruction technique. Findings: No intracranial hemorrhage, mass-effect, or midline shift. The ventricles are proportionate to the cerebral sulci. The awan to white matter differentiation of the cerebral hemispheres is preserved. The basal cisterns are patent. Moderate to marked cerebral atrophy. The visualized paranasal sinuses are clear. Mastoid air cells are clear. Impression: No acute intracranial pathology. Electronically signed by Jose Friedman 04-03-2025 6:38 PM
--- NOTE | 2025-04-03 18:40 | CT Scan Report ---
EXAMINATION: CT of the abdomen and pelvis performed after the administration of IV contrast TECHNIQUE: Helical CT images from the lung bases through the symphysis pubis were obtained with contrast. Coronal and sagittal reformatted images were generated at a workstation for further assessment. Dose reduction techniques were achieved by using automatic exposure control and/or adjustment of mA and/or kV according to patient size and/or use of iterative reconstruction technique. COMPARISON: None HISTORY: Abdominal pain FINDINGS: Lower chest: No consolidation. No pleural effusion or pneumothorax. Liver: No suspicious liver lesions. Portal veins appear patent. Gallbladder: No gallstones. No evidence of acute cholecystitis. Spleen: Normal size. Pancreas: No suspicious pancreatic lesions. The pancreatic duct is not dilated. Adrenal glands: No adrenal nodules. Kidneys: No hydronephrosis or obstructing renal stones. Bladder / Pelvic organs: Unremarkable. Bowel: No bowel obstruction. No abnormal bowel wall thickening. The appendix is not visualized. There is moderate stool. Lymph nodes: No retroperitoneal, mesenteric, or pelvic lymphadenopathy. Peritoneum / Retroperitoneum: No free fluid or air within the abdomen. Vessels: No infrarenal aortic aneurysm. Bones and soft tissues: No suspicious lesion in the bones. IMPRESSION: No acute intra-abdominal process Electronically signed by Jose Friedman 04-03-2025 6:40 PM
[2025-04-03 18:44] LABS: Thyroid Stimulating Hormone 3.912 uIu/ml (0.300-4.500)
[2025-04-03 20:23] LABS: Appearance Urine Clear (Clear); Bacteria Urine Automated None Seen (None Seen); Bilirubin Urine Negative (Negative); Blood Urine Negative (Negative); Cast Urine Automated 0-2 /lpf (0-2); Color Urine Yellow; Glucose Urine UA Negative (Negative); Ketones Urine Negative (Negative); Leukocyte Esterase Urine Negative (Negative); Nitrite Urine Negative (Negative); Protein Urine Trace (Negative); RBC Urine Automated 0-2 /hpf (0-2); Specific Gravity Urine > 1.045 (1.000-1.030); Urobilinogen Urine Negative (Negative); WBC Urine Automated 0-5 /hpf (0-5)
--- NOTE | 2025-04-03 21:12 | History & Physical Report ---
Date of Service April 03, 2025 Assessment & Plan (1) Altered mental status: Plan: Assessment and plan below following discussion of case with ED provider and reviewing patient history/pertinent normal/abnormal diagnostic test results. Altered mental status Hypoactive delirium on dementia Mild clinical dehydration Recent outpatient Rx for presumptive UTI, UA currently clear right breast cancer right status surgery status post Arimidex, in remission Hyperglycemia likely prediabetes, hemoglobin A1c of 5.8 from 2019 OBS Admit to med/tele IVF PT OT eval DVT prophylaxis. Lovenox subcu Full code as per /POA, Mr. Jaison Taylor. He requests updates providers through [id number]. Text document was generated using [employer]ov[employer] voice recognition software. It may contain grammatical or spelling errors. Kindly contact undersigned for clarification of any documentation item in question. History of Present Illness Chief Complaint: Worsening confusion, delusions as per family I do not know as per patient Primary Care Provider: Dr. Patel History obtained from patient, family, and records. Limited history from patient secondary to dementia. Medical history significant for right breast cancer right status surgery status post Arimidex, aortic sclerosis, psoriatic arthritis as per records, skin cancer as per records, dementia. 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 Last week, patient noted by family to worsening confusion and generalized weakness, strong smelling urine as per . Patient without abdominal or flank pain complaints. Bactrim prescribed by PCP for presumptive UTI. No sample collected. Initial improvement in symptoms. Patient noted to be weak today, unable to get out of bed. Increased delusions and hallucinations as per . Patient not eating and drinking as much. Patient directed to ER by PCP. Improved mentation after IVF administration at the ER as per family. 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 Allergies Allergy/AdvReac Type Severity Reaction Status Date / Time No Known Allergies Allergy Unknown Verified 12/29/18 06:51 Home Medications Medication Instructions Recorded Confirmed Type hginbtb-tyrqcvqlekxnk-adawjych 250 1 tab PO BID PRN Migraine Headache 02/19/19 04/03/25 History mg-250 mg-65 mg tablet (Excedrin Migraine) alendronate 70 mg tablet 70 mg PO WK 04/03/25 04/03/25 History memantine 10 mg tablet 10 mg PO BID 04/03/25 04/03/25 History metronidazole 0.75 % topical cream 1 applic topical BID 04/03/25 04/03/25 H istory sulfamethoxazole 800 1 tab PO BID 04/03/25 04/03/25 History mg-trimethoprim 160 mg tablet triamcinolone acetonide 0.1 % 1 applic topical BID PRN Itching 04/03/25 04/03/25 History topical cream Past Med/Surg History Problem List (Updated 04/03/25 @ 22:02 by Chris Juares MD) Altered mental status Dementia (Acute) Weakness (Acute) Anaplasmosis Sepsis Fever (Acute) Leukopenia (Acute) Thrombocytopenia (Acute) S/P breast lumpectomy (Acute) Encounter for pre-operative examination Chest pain (Acute 05/16/14) Chest pain (Acute) Psoriatic arthritis (Chronic) Medical History (Updated 04/03/25 @ 22:02 by Chris Juares MD) Skin cancer Seroma of breast Right breast Breast cancer, right breast 12/29/18 Rosacea Osteoporosis GERD (gastroesophageal reflux disease) Migraines Psoriatic arthritis Hepatitis H/O HEPATITIS A CHILD, UNKNOWN KIND. History of hepatitis as a child Surgical History (Updated 03/22/19 @ 08:46 by Hiwot Romero RN) History of cholecystectomy Status post surgery Re-excision right lumpectomy for positive margin on 03/16/19 Status post partial mastectomy of right breast With SLN biopsy on 02/16/19 Dr. Bowman History of appendectomy History of cataract surgery LEFT CATARACT History of cholecystectomy History of colonoscopy Social History Smoking Status: Never smoker Second Hand Exposure: No; Do You Dip or Chew Tobacco: No; Hx Alcohol Use: Yes Alcohol type: wine and hard liquor Hx Substance Use: No Preferred Language: Lebanese Communication Ability: Effective Teletype Technician Required: No Beliefs That Will Affect Care: None Current Living Situation: Spouse Feels Safe at Home: Declines to Answer Assistive Devices: None Review of Systems Review of Systems: Could not be reliably obtained secondary to dementia Physical Exam Physical Exam: GENERAL: Demented e, no respiratory distress SKIN: Normal color, warm HEENT: [place] palpebral conjunctivae, no ptosis, dry buccal mucosa NECK : Supple, no tenderness CHEST : Clear to auscultation, no tenderness HEART : RRR, systolic murmur ABDOMEN: Some distention, nontender EXTREMITIES : Chronic bilateral LE swelling, no LE tenderness, no other conspicuous deformities noted NEUROLOGIC : Demented, no facial asymmetry, gait and stance not assessed Results & Data Results & Data Vital Signs (Past 12 Hours) Vital Signs Temp Pulse Resp BP Pulse Ox O2 Del Method 04/03/25 20:30 139/84 04/03/25 20:16 80 20 151/89 H 93 Room Air 04/03/25 19:33 83 16 136/95 04/03/25 18:01 88 04/03/25 17:50 98 Room Air 04/03/25 17:33 36.6 C 85 24 123/98 98 Room Air Laboratory Results Laboratory Results WBC 9.14 K/ul (4.8-10.8) 04/03/25 17:45 RBC 4.51 M/uL (4.20-5.40) 04/03/25 17:45 Hgb 13.6 g/dl (12.0-16.0) 04/03/25 17:45 POC Hgb 13.9 g/dl (12.0-16.0) 04/03/25 17:53 Hct 39.9 % (37.0-47.0) 04/03/25 17:45 POC Hct 41 % (37-47) 04/03/25 17:53 MCV 88.5 fL (80.0-100.0) 04/03/25 17:45 MCH 30.2 pg (25.0-34.0) 04/03/25 17:45 MCHC 34.1 g/dL (32.0-36.0) 04/03/25 17:45 RDW Std Deviation 41.5 fL (36.4-46.3) 04/03/25 17:45 RDW Coeff of Hermila 12.7 % (11.5-14.5) 04/03/25 17:45 Plt Count 196 K/uL (130-400) 04/03/25 17:45 MPV 11.5 fL (9.4-12.4) 04/03/25 17:45 Immature Gran % (Auto) 0.3 % 04/03/25 17:45 Neut % (Auto) 58.4 % 04/03/25 17:45 Lymph % (Auto) 30.7 % 04/03/25 17:45 [place] % (Auto) 10.3 % 04/03/25 17:45 Eos % (Auto) 0.0 % 04/03/25 17:45 Baso % (Auto) 0.3 % 04/03/25 17:45 Neut # (Auto) 5.33 K/uL (1.40-6.50) 04/03/25 17:45 Lymph # (Auto) 2.81 K/uL (1.20-3.40) 04/03/25 17:45 [place] # (Auto) 0.94 K/uL (0.11-0.59) H 04/03/25 17:45 Eos # (Auto) 0.00 K/uL (0.00-0.50) 04/03/25 17:45 Baso # (Auto) 0.03 K/uL (0.00-0.20) 04/03/25 17:45 Immature Gran # (Auto) 0.03 K/uL (0.01-0.20) 04/03/25 17:45 PT 10.4 Seconds (9.0-12.0) 04/03/25 17:45 INR 1.0 (0.9-1.1) 04/03/25 17:45 POC Sodium 139 mmol/L (135-144) 04/03/25 17:53 Sodium 139 mmol/L (136-145) 04/03/25 17:45 POC Potassium 3.9 mmol/L (3.3-5.0) 04/03/25 17:53 Potassium 3.9 mmol/L (3.5-5.1) 04/03/25 17:45 POC Chloride 107 mmol/L (101-112) 04/03/25 17:53 Chloride 105 mmol/L (98-107) 04/03/25 17:45 Carbon Dioxide 23 mmol/L (21-32) 04/03/25 17:45 POC Total CO2 21 mmol/L (24-31) L 04/03/25 17:53 Anion Gap 11 (3-11) 04/03/25 17:45 POC Anion Gap 16.0 mmol/L (16-25) 04/03/25 17:53 POC BUN 27 mg/dl (7-18) H 04/03/25 17:53 BUN 29 mg/dl (6-23) H 04/03/25 17:45 Creatinine 1.14 mg/dl (0.6-1.2) 04/03/25 17:45 POC Creatinine 1.3 mg/dl (0.6-1.3) 04/03/25 17:53 Est Cr Clr Drug Dosing 35.3 ml/min 04/03/25 17:45 eGFR 48.06 04/03/25 17:45 BUN/Creatinine Ratio 25.4 (10-20) H 04/03/25 17:45 Glucose 128 mg/dl (70-99(Fasting)) H 04/03/25 17:45 POC Glucose (other) 130 mg/dl (70-99) H 04/03/25 17:53 Lactate 1.6 mmol/L (0.4-2.0) 04/03/25 19:46 Calcium 10.3 mg/dl (8.6-10.3) 04/03/25 17:45 POC Ioniz Calcium [place] 1.29 mmol/l (1.12-1.32) 04/03/25 17:53 Magnesium 2.4 mg/dl (1.7-2.4) 04/03/25 17:45 Total Bilirubin 0.8 mg/dl (0.2-1.0) 04/03/25 17:45 AST 18 U/L (13-39) 04/03/25 17:45 ALT 12 U/L (7-52) 04/03/25 17:45 Alkaline Phosphatase 83 U/L (34-104) 04/03/25 17:45 Troponin I High Sens 4.5 pg/ml (0-14) 04/03/25 17:45 Total Protein 7.5 gm/dl (6.0-8.3) 04/03/25 17:45 Albumin 4.3 gm/dl (3.4-5.0) 04/03/25 17:45 Globulin 3.2 gm/dl (2.5-4.0) 04/03/25 17:45 Albumin/Globulin Ratio 1.3 (0.9-2) 04/03/25 17:45 Lipase 43 U/L (11-82) 04/03/25 17:45 Procalcitonin 0.11 ng/ml (0-0.5) 04/03/25 17:45 TSH 3.912 uIu/ml (0.300-4.500) 04/03/25 17:45 Urine Color Yellow 04/03/25 20:00 Urine Appearance Clear (Clear) 04/03/25 20:00 Urine pH 5.0 (4.5-7.5) 04/03/25 20:00 Ur Specific [place] > 1.045 (1.000-1.030) H 04/03/25 20:00 Urine Protein Trace (Negative) H 04/03/25 20:00 Urine Glucose (UA) Negative (Negative) 04/03/25 20:00 Urine Ketones Negative (Negative) 04/03/25 20:00 Urine Blood Negative (Negative) 04/03/25 20:00 Urine Nitrite Negative (Negative) 04/03/25 20:00 Urine Bilirubin Negative (Negative) 04/03/25 20:00 Urine Urobilinogen Negative (Negative) 04/03/25 20:00 Ur Leukocyte Esterase Negative (Negative) 04/03/25 20:00 Urine WBC (Auto) 0-5 /hpf (0-5) 04/03/25 20:00 Urine RBC (Auto) 0-2 /hpf (0-2) 04/03/25 20:00 U Hyaline Cast (Auto) 0-2 /lpf (0-2) 04/03/25 20:00 U Epithel Cells (Auto) 3-5 /hpf (0-2) H 04/03/25 20:00 Urine Bacteria (Auto) None Seen (None Seen) 04/03/25 20:00 Urine Comment 04/03/25 20:00 Impressions Chest X-Ray 04/03/25 17:39 EXAM: Portable AP chest radiograph TECHNIQUE: AP portable radiograph of the chest was obtained. INDICATION: Shortness of breath. Weakness. Comparison: Thoracic CT February 19, 2019. FINDINGS: LINES and TUBES: None CARDIOVASCULAR: Cardiac silhouette is stably and mildly enlarged in size. Atherosclerosis of the thoracic aorta LUNGS/PLEURA: No focal consolidation identified. Chronic interstitial changes of the lungs. No significant pleural fluid. No discernible pneumothorax. OSSEOUS/OTHER: No displaced acute osseous process identified. IMPRESSION: Unchanged mild cardiac enlargement. No focal consolidation identified in the lungs. Electronically signed by Yovani Resendiz 04-03-2025 6:[address] 04/03/25 17:40 CT head without contrast History: Altered mental status Comparison: None Technique: Using multidetector thin collimation helical acquisition technique, axial, coronal and sagittal CT images from the skull base to the vertex were obtained without intravenous contrast. Dose reduction techniques were achieved by using automatic exposure control and/or adjustment of mA and/or kV according to patient size and/or use of iterative reconstruction technique. Findings: No intracranial hemorrhage, mass-effect, or midline shift. The ventricles are proportionate to the cerebral sulci. The awan to white matter differentiation of the cerebral hemispheres is preserved. The basal cisterns are patent. Moderate to marked cerebral atrophy. The visualized paranasal sinuses are clear. Mastoid air cells are clear. Impression: No acute intracranial pathology. Electronically signed by Jose Friedman 04-03-2025 6:38 PM Abdomen/Pelvis CT 04/03/25 17:41 EXAMINATION: CT of the abdomen and pelvis performed after the administration of IV contrast TECHNIQUE: Helical CT images from the lung bases through the symphysis pubis were obtained with contrast. Coronal and sagittal reformatted images were generated at a workstation for further assessment. Dose reduction techniques were achieved by using automatic exposure control and/or adjustment of mA and/or kV according to patient size and/or use of iterative reconstruction technique. COMPARISON: None HISTORY: Abdominal pain FINDINGS: Lower chest: No consolidation. No pleural effusion or pneumothorax. Liver: No suspicious liver lesions. Portal veins appear patent. Gallbladder: No gallstones. No evidence of acute cholecystitis. Spleen: Normal size. Pancreas: No suspicious pancreatic lesions. The pancreatic duct is not dilated. Adrenal glands: No adrenal nodules. Kidneys: No hydronephrosis or obstructing renal stones. Bladder / Pelvic organs: Unremarkable. Bowel: No bowel obstruction. No abnormal bowel wall thickening. The appendix is not visualized. There is moderate stool. Lymph nodes: No retroperitoneal, mesenteric, or pelvic lymphadenopathy. Peritoneum / Retroperitoneum: No free fluid or air within the abdomen. Vessels: No infrarenal aortic aneurysm. Bones and soft tissues: No suspicious lesion in the bones. IMPRESSION: No acute intra-abdominal process Electronically signed by Jose Friedman 04-03-2025 6:40 PM Diagnostic Findings EKG as per my interpretation :Rate 85, NSR, LAD, LAFB, LVH, nonspecific T wave abnormalities
[2025-04-03] MEDS ORDERED: PROMETHAZINE 6.25 MG/50.25 ML BAG IV PRN (21:13)
[2025-04-03] MEDS ORDERED: ACETAMINOPHEN 325 MG TAB PO PRN (23:36)
[2025-04-04] MEDS: SODIUM CHLORIDE 0.9% 1,000 ML IV ONE (04:28)
[2025-04-04 07:35] LABS: Basophils # (auto) 0.03 K/uL (0.00-0.20); Basophils % (auto) 0.4 %; Eosinophils # (auto) 0.11 K/uL (0.00-0.50); Eosinophils % (auto) 1.4 %; Hematocrit (blood only) 35.9 % (37.0-47.0); Immature Granulocytes # (auto) 0.03 K/uL (0.01-0.20); Immature Granulocytes % (auto) 0.4 %; Lymphocytes # (auto) 3.62 K/uL (1.20-3.40); Lymphocytes % (auto) 45.1 %; Mean Corpuscular Hemoglobin 29.8 pg (25.0-34.0); Mean Corpuscular Hgb Conc 33.4 g/dL (32.0-36.0); Mean Corpuscular Volume 89.1 fL (80.0-100.0); Mean Platelet Volume 11.3 fL (9.4-12.4); Monocytes # (auto) 0.75 K/uL (0.11-0.59); Monocytes % (auto) 9.4 %; Neutrophils # (auto) 3.48 K/uL (1.40-6.50); Neutrophils % (auto) 43.3 %; Platelet Count 161 K/uL (130-400); RDW Coefficient of Variation 12.7 % (11.5-14.5); RDW Standard Deviation 42.1 fL (36.4-46.3); Red Blood Count 4.03 M/uL (4.20-5.40); White Blood Count 8.02 K/ul (4.8-10.8)
[2025-04-04 07:56] LABS: Calcium 9.2 mg/dl (8.6-10.3); Potassium 4.3 mmol/L (3.5-5.1)
[2025-04-04 08:01] LABS: BUN Creatinine Ratio 19.3 (10-20); Creatinine Clr Calc Pharmacy 39.3 ml/min
[2025-04-04 08:18] LABS: Estimated Average Glucose 111 mg/dl; Hemoglobin A1C 5.5 % (4.5-5.6)
[2025-04-04] MEDS: ENOXAPARIN INJ 40 MG/0.4 ML SYR SQ SCH (09:20)
[2025-04-04] MEDS ORDERED: ONDANSETRON INJ 2 MG/ML 2 ML VIAL IV PRN (13:53)
--- NOTE | 2025-04-04 13:58 | Hospitalist Progress Note ---
Date of Service April 04, 2025 Assessment & Plan (1) Dementia in Alzheimer's disease with delirium: (2) Dehydration, mild: Plan Patient 84-year-old female with advanced Alzheimer's dementia with some acute delirium in the setting of recent UTI treated with antibiotics, some mild dehydration and alteration of her usual daily routine with the visitation of her son. Continue current care IV fluids through this evening then saline lock Therapies Case management to meet with family to discuss options Bedside conversation with the patient's son and , they report that they have already been under sued getting the patient placed in [facility] dementia care unit. They have a bed available to her in mid April. They are hoping that potentially she could go to intermediate facility from here and then to the dementia unit. I discussed with them that there is no evidence of urinary tract infection this hospitalization. All of her medical issues are fairly stable. But is showing marked signs of advanced dementia. They report that her delirium seems to cleared/improved compared to yesterday with just the IV hydration. Admission and Anticipated Discharge Date Admission Date: April 03, 2025 Subjective Patient disoriented to person place and time. Some simple yes and no responses to questions Physical Exam Physical Exam: Constitutional: Alert, nontoxic, no acute distress HEENT: Mucous membranes moist. Lungs: Clear to auscultation, decreased, no wheezes rales or rhonchi CV: S1-S2, regular Abdomen: Soft, nontender, nondistended Extremities: No significant edema Neuro: Generalized weakness, unsteady gait Psych: Cooperative, significantly impaired memory, cognitive ability Results & Data Results & Data Vital Signs (Past 12 Hours) Vital Signs Temp Pulse Pulse Resp BP Pulse Ox O2 Del Method 04/04/25 13:16 Room Air 04/04/25 08:12 36.6 C 53 L 18 118/83 96 Room Air 04/04/25 07:12 67 04/04/25 02:35 37.0 C 73 16 116/73 95 Room Air Diagnostic Findings Reviewed imaging, laboratory and diagnostic studies. Pertinent findings as below.
[2025-04-04] MEDS: MEMANTINE HCL 10 MG TAB PO SCH (20:08)
--- NOTE | 2025-04-05 13:05 | Hospitalist Progress Note ---
Date of Service April 05, 2025 Assessment & Plan (1) Dementia in Alzheimer's disease with delirium: (2) Dehydration, mild: (3) Acute metabolic encephalopathy: Plan: Resolved due to mild dehydration Plan Patient 84-year-old female with known advanced dementia presented with increased confusion and metabolic encephalopathy most likely due to some mild dehydration and change in her usual routine at home. Patient is ruled out for any other acute medical issue, no evidence of infection. Pursuing skilled rehab placement and then eventual placement to dementia unit at [facility]. Son and at bedside and agreeable to the plan of care Admission and Anticipated Discharge Date Admission Date: April 04, 2025 Subjective No acute issues overnight. states that patient's roommate states that she spoke in her sleep overnight which is not unusual. Cognitive abilities wax and wanes as usual at home Physical Exam Physical Exam: Constitutional: Alert, no acute distress HEENT: Mucous membranes moist. Lungs: Clear to auscultation, decreased, no wheezes rales or rhonchi CV: S1-S2, regular Abdomen: Soft, nontender, nondistended Extremities: No significant edema Neuro: No focal deficits Psych: Cooperative, abnormal cognition, abnormal memory, significant dementia Results & Data Results & Data Vital Signs (Past 12 Hours) Vital Signs Temp Pulse Resp BP Pulse Ox O2 Del Method 04/05/25 08:00 Room Air 04/05/25 07:31 36.9 C 82 20 113/74 95 Room Air 04/05/25 04:37 37.2 C 87 16 113/69 93 Room Air
--- NOTE | 2025-04-05 15:55 | Electrocardiogram Report ---
Test Reason : Blood Pressure : */* mmHG Vent. Rate : 85 BPM Atrial Rate : 85 BPM P-R Int : 144 ms QRS Dur : 78 ms QT Int : 340 ms P-R-T Axes : 10 -10 7 degrees QTcB Int : 404 ms Normal sinus rhythm with sinus arrhythmia Minimal voltage criteria for LVH, may be normal variant ( R in aVL ) Nonspecific ST and T wave abnormality Abnormal ECG When compared with ECG of 19-Feb-2019 18:49, Nonspecific T wave abnormality now evident in Anterior leads Confirmed by Vitaly Edwards ([id number]) on 04/05/2025 3:54:03 PM Referred By: REFERRED SELF Confirmed By: Vitaly Edwards
[2025-04-06 06:50] VITALS: RESP 16
--- NOTE | 2025-04-06 13:00 | Hospitalist Progress Note ---
Date of Service April 06, 2025 Assessment & Plan (1) Dementia in Alzheimer's disease with delirium: (2) Dehydration, mild: (3) Acute metabolic encephalopathy: Plan: Resolved due to mild dehydration Plan Patient with advancing Alzheimer's dementia presented with acute delirium probably due to some mild dehydration and possibly UTI treated as an outpatient. Acute delirium and metabolic encephalopathy has resolved. Patient at baseline dementia. Case management pursuing rehab placement at [facility]. Awaiting authorization anticipate bed available on 04/07/2025. Patient will then go to [facility] dementia unit from the ER which had been arranged by family previous to admission. Admission and Anticipated Discharge Date Admission Date: April 04, 2025 Subjective Patient resting comfortably this morning. Has no recollection of breakfast. Thinks she slept well. Physical Exam Physical Exam: Constitutional: Sleeping, easily awakened HEENT: Mucous membranes moist. Lungs: Clear to auscultation, decreased, no wheezes rales or rhonchi CV: S1-S2, regular Abdomen: Soft, nontender, nondistended Extremities: No significant edema Neuro: No focal deficits Psych: Cooperative, impaired cognition, impaired memory, disoriented x 3 Results & Data Results & Data Vital Signs (Past 12 Hours) Vital Signs Temp Pulse Resp BP Pulse Ox O2 Del Method 04/06/25 07:15 Room Air 04/06/25 06:49 36.7 C 85 16 123/78 93 Room Air
[2025-04-07 07:13] VITALS: BP 127/75; PULSE 73; TEMP 97.7; O2SAT 98
[2025-04-07] MEDS: PNEUMOCOCCAL VACCINE (PCV20) 20-VAL CONJ-DIP CRM/PF 0.5 ML SYR IM ONE (10:43)
--- NOTE | 2025-04-07 13:04 | Discharge Summary ---
Discharge Summary Date of Service April 07, 2025 Principal Dx & Hospital Course #1 = Principal Diagnosis (1) Dementia in Alzheimer's disease with delirium: (2) Dehydration, mild: (3) Acute metabolic encephalopathy: Resolved due to mild dehydration Plan Ms. Taylor is an 84 yo woman with advancing Alzheimer's dementia admitted with acute delirium likely due to some mild dehydration and possibly UTI treated as an outpatient. Acute delirium and metabolic encephalopathy has resolved. Patient at baseline dementia on day of discharge. Patient ultimately dischagred to [facility] prior to placement in memory care unit. Notes For Next Care Provider Medication Changes From Visit none Admission HPI Per Admitting Provider History obtained from patient, family, and records. Limited history from patient secondary to dementia. Medical history significant for right breast cancer right status surgery status post Arimidex, aortic sclerosis, psoriatic arthritis as per records, skin cancer as per records, dementia. 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 Last week, patient noted by family to worsening confusion and generalized weakness, strong smelling urine as per . Patient without abdominal or flank pain complaints. Bactrim prescribed by PCP for presumptive UTI. No sample collected. Initial improvement in symptoms. Patient noted to be weak today, unable to get out of bed. Increased delusions and hallucinations as per . Patient not eating and drinking as much. Patient directed to ER by PCP. Improved mentation after IVF administration at the ER as per family. 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 Admission Exam Per Admitting Provider GENERAL: Demented e, no respiratory distress SKIN: Normal color, warm HEENT: [place] palpebral conjunctivae, no ptosis, dry buccal mucosa NECK : Supple, no tenderness CHEST : Clear to auscultation, no tenderness HEART : RRR, systolic murmur ABDOMEN: Some distention, nontender EXTREMITIES : Chronic bilateral LE swelling, no LE tenderness, no other conspicuous deformities noted NEUROLOGIC : Demented, no facial asymmetry, gait and stance not assessed Discharge Exam Constitutional WD/WN, vitals as above Respiratory normal respiratory effort, lungs clear to auscultation Cardiovascular RRR, no murmur, no edema Gastrointestinal (Abdomen) normal bowel sounds, soft, nontender, no hepatosplenomegaly Updated Medication List Medication Instructions Recorded Confirmed Type acetaminophen 325 mg tablet 650 mg (2 x 325 mg) PO Q4H PRN 04/06/25 Rx fever or pain #100 tabs alendronate 70 mg tablet 70 mg PO WK #4 tabs 04/06/25 Rx memantine 10 mg tablet 10 mg PO BID #60 tabs 04/06/25 Rx Hospital Stay Data Consultations 04/03/25 20:19 ED Decision to Admit Stat Diagnostic Imagining Performed 04/03/25 17:40 CT head/brain wo con Stat 04/03/25 17:41 CT abd pelvis IV con only Stat Pending Results Patient Have Any Pending Studies at Discharge: No Discharge Instructions Given to Patient (Per Discharging Provider) Once you have been rehabilitated physically recommend you continue your care at [facility] memory care unit Total Time Total Time Spent Total Time Spent (In Minutes): 35
== END 2025-04-07 13:04 | DRG 640 ==
LOC: 2N 17:18 → ED 17:18 → 2N 04-04 00:06 → SUATTDRO 04-04 14:17 → 3E 04-05 22:37

== ENCOUNTER 2025-09-18 18:42 | Inpatient (IN) ==
[2025-09-18] MEDS ORDERED: ACETAMINOPHEN 500 MG TAB PO PRN (18:55)
[2025-09-18] MEDS ORDERED: HYDROmorphone INJ 0.5 MG/0.5 ML SYR IV PRN (18:55)
[2025-09-18 19:23] LABS: Hematocrit (blood only) 39.8 % (37.0-47.0); Hemoglobin 13.5 g/dL (12.0-16.0); Immature Granulocytes # (auto) 0.05 K/uL (0.01-0.20); Immature Granulocytes % (auto) 0.4 %; Mean Corpuscular Hemoglobin 29.3 pg (25.0-34.0); Mean Corpuscular Volume 86.3 fL (80.0-100.0); Platelet Count 120 K/uL (130-400); RDW Standard Deviation 42.0 fL (36.4-46.3); Red Blood Count 4.61 M/uL (4.20-5.40); White Blood Count 11.36 K/ul (4.8-10.8)
[2025-09-18 19:43] LABS: Alanine Aminotransferase 13.0 U/L (7-52); Albumin Globulin Ratio 1.1 (0.9-2); Albumin Level 3.6 gm/dl (3.4-5.0); Alkaline Phosphatase 82.0 U/L (34-104); Anion Gap 10.0 (3-11); Bilirubin,Total 1.3 mg/dl (0.2-1.0); Blood Urea Nitrogen 13.0 mg/dl (6-23); Calcium 9.5 mg/dl (8.6-10.3); Carbon Dioxide 24.0 mmol/L (21-32); Chloride 105.0 mmol/L (98-107); Creatinine Clr Calc Pharmacy 53.9 ml/min; Globulin 3.2 gm/dl (2.5-4.0); Glucose 124.0 mg/dl (70-99(Fasting)); Potassium 3.9 mmol/L (3.5-5.1); Sodium 139.0 mmol/L (136-145); Total Protein 6.8 gm/dl (6.0-8.3)
[2025-09-18 19:49] LABS: INR 1.0 (0.9-1.1); Partial Thromboplastin Time 24 Seconds (21-31); Prothrombin Time 10.3 Seconds (9.0-12.0)
--- NOTE | 2025-09-18 20:04 | CT Scan Report ---
CT of the left hip without contrast Technique: Noncontrast axial in the left hip. Coronal and sagittal reformatted images made available for review. No comparison Findings: Diffuse osteopenia. Comminuted displaced angulated subcapital left femoral neck fracture. Acetabulum and femoral head maintains a normal anatomic relationship. Subtle associated soft tissue swelling. Impression Comminuted displaced angulated left subcapital femoral neck fracture Electronically signed by Samuel Han 09-18-2025 8:03 PM
--- NOTE | 2025-09-18 20:04 | CT Scan Report ---
CT of the pelvis without contrast Technique: Noncontrast axial images of the pelvis. Coronal and sagittal reformatted images made available for review No comparison Findings: Comminuted displaced angulated left subcapital femoral neck fracture without dislocation. Fibroid uterus Moderate amount of stool within the colon Impression Comminuted displaced angulated left subcapital femoral neck fracture Electronically signed by Samuel Han 09-18-2025 8:03 PM
[2025-09-18] MEDS: LACTATED RINGER'S 1,000 ML IV SCH (20:07)
[2025-09-18 20:58] LABS: Appearance Urine Cloudy (Clear); Bacteria Urine Automated 4+ (None Seen); Epithelial Cell Urine Auto 0-2 /hpf (0-2); Glucose Urine UA Negative (Negative); RBC Urine Automated 0-2 /hpf (0-2)
--- NOTE | 2025-09-18 21:35 | Emergency Department Note ---
History of Present Illness General Chief complaint: Hip Pain Stated complaint: L HIP FRACTURE Time Seen by Provider: 09/18/25 18:55 Source: family and old records reviewed Mode of arrival: EMS Limitations: other History of Present Illness Provider complaint: H/o dementia Patient is an 84-year-old female presenting from [facility] facility for outpatient x-ray showing a left femoral neck fracture. Patient fell on Thursday while transitioning from the toilet to her walker according to family members. Has been unable to bear weight on the left side since then. Obvious deformity to the left hip. No head or neck injury reported according to staff and . Home Medications Medication Instructions Recorded Confirmed Type acetaminophen 325 mg tablet 650 mg (2 x 325 mg) PO Q4H PRN 04/06/25 05/20/25 Rx fever or pain #100 tabs memantine 10 mg tablet 10 mg PO BID #60 tabs 04/06/25 05/20/25 Rx metronidazole 0.75 % topical cream 1 applic topical BID Rash on face 05/20/25 05/20/25 History polyethylene glycol 3350 17 17 g PO DAILY PRN Constipation 05/20/25 05/20/25 History gram/dose oral powder (Miralax) risperidone 1 mg/mL oral solution 0.25 mg PO DAILY 05/20/25 05/20/25 History risperidone 1 mg/mL oral solution 0.5 mg PO HS 05/20/25 05/20/25 History triamcinolone acetonide 0.1 % 1 applic topical Q12H PRN Itching 05/20/25 05/20/25 History topical cream Allergies Allergy/AdvReac Type Severity Reaction Status Date / Time No Known Allergies Allergy Unknown Verified 05/20/25 17:54 Past Med/Surg History Problem List (Updated 09/18/25 @ 21:39 by Kunal White MD) Asymptomatic bacteriuria (Acute) Femoral neck fracture (Acute) Acute metabolic encephalopathy Dehydration, mild Dementia in Alzheimer's disease with delirium Altered mental status Dementia (Acute) Weakness (Acute) Anaplasmosis Sepsis Fever (Acute) Leukopenia (Acute) Thrombocytopenia (Acute) S/P breast lumpectomy (Acute) Encounter for pre-operative examination Chest pain (Acute 05/16/14) Chest pain (Acute) Psoriatic arthritis (Chronic) Medical History (Updated 09/18/25 @ 21:39 by Kunal White MD) Skin cancer Seroma of breast Right breast Breast cancer, right breast 12/29/18 Rosacea Osteoporosis GERD (gastroesophageal reflux disease) Migraines Psoriatic arthritis Hepatitis H/O HEPATITIS A CHILD, UNKNOWN KIND. History of hepatitis as a child Surgical History (Updated 05/08/25 @ 00:08 by Background Daeulalia) History of cholecystectomy Status post surgery Re-excision right lumpectomy for positive margin on 03/16/19 Status post partial mastectomy of right breast With SLN biopsy on 02/16/19 Dr. Bowman History of appendectomy History of cataract surgery LEFT CATARACT History of cholecystectomy History of colonoscopy Social History Smoking Status: Never smoker Second Hand Exposure: No; Do You Dip or Chew Tobacco: No; Hx Alcohol Use: Yes Alcohol type: wine and hard liquor Hx Substance Use: No Preferred Language: [place] Citizen Communication Ability: Impaired Communication Ability Comment: Pts speech is slowed, answers some simple yes/no questions Trapper Animal Required: No Beliefs That Will Affect Care: None Current Living Situation: Spouse Current Living Situation Comment: lives with Feels Safe at Home: Yes Assistive Devices: None Review of Systems Unable to obtain full ROS secondary to underlying dementia. Physical Exam Vital Signs Vital Signs - 24 hr 09/18/25 18:36 09/18/25 19:08 Pulse Rate 71 88 Respiratory Rate 18 Respiratory Effort / Characteristics Non-Labored Spontaneous Respiratory Depth Normal Blood Pressure 131/98 Blood Pressure Mean 109 Pulse Oximetry 97 Oxygen Delivery Method Room Air Sepsis New/Unexplained Change in Mental Status No Sepsis Action Taken by Nursing No Action Required Primary Survey Airway: Intact Breathing: Normal, breath sounds equal bilaterally Circulation: Skin warm, well perfused, capillary refill less than 2 seconds Disability Pupils: Equal and reactive to light, 3mm, brisk GCS: 15, E = 4 V=5 M= 6 Motor Function: Moves all extremities. Sensory: No deficits Secondary Survey GENERAL: NAD, non-toxic. HEAD: Normocephalic, atraumatic EYE EXAM: Normal conjunctiva. PERRL, no anisocoria and EOM's grossly intact w/o pain. OROPHARYNX: Moist mucus membranes. Grossly normal dentition. NECK: Supple, trachea midline, no midline C spine TTP. Chest: No reproducible chest wall pain. LUNGS: Clear to auscultation. Normal chest wall mechanics. HEART: NSR, no MRG. ABDOMEN: Abdomen soft, non-tender, no obvious bruising, normo-active bowel sounds, no masses, no rebound or guarding. BACK: No CVA TTP. No midline thoracic or lumbar TTP. SKIN: No rashes and no bruising. UPPER EXTREMITIES: Upper extremities are grossly normal. Well-perfused and compartments are soft throughout. LOWER EXTREMITIES: Left hip is externally rotated and shortened, positive logroll test on the left, 2+ DP pulses bilaterally NEURO EXAM: A&O x1, cranial nerves II-XII grossly intact, normal speech, moves all 4 extremities. Course Administered Medications Lactated Ringer's (Lr) 1,000 mls @ 150 mls/hr IV .[id number] LAUREN Stop: 09/21/25 18:59 Last Admin: 09/18/25 20:07 Dose: 150 mls/hr Documented By: matilde Medical Decision Making Differential Diagnosis DDx includes but not limited to: Subcapital fracture of the left femur Medical Records Attestation: I reviewed the patient's medical records. Home Medications Current Medication List: was personally reviewed by me Laboratory Data Attestation: I reviewed the patient's lab results. 09/18/25 19:06 09/18/25 19:06 Lab Results 09/18/25 09/18/25 Range/Units 19:06 20:08 WBC 11.36 H (4.8-10.8) K/ul RBC 4.61 (4.20-5.40) M/uL Hgb 13.5 (12.0-16.0) g/dL Hct 39.8 (37.0-47.0) % MCV 86.3 (80.0-100.0) fL MCH 29.3 (25.0-34.0) pg MCHC 33.9 (32.0-36.0) g/dL RDW Std Deviation 42.0 (36.4-46.3) fL RDW Coeff of Hermila 13.4 (11.5-14.5) % Plt Count 120 L (130-400) K/uL MPV 11.3 (9.4-12.4) fL Immature Gran % (Auto) 0.4 % Neut % (Auto) 59.6 % Lymph % (Auto) 30.2 % [place] % (Auto) 7.8 % Eos % (Auto) 1.6 % Baso % (Auto) 0.4 % Neut # (Auto) 6.77 H (1.40-6.50) K/uL Lymph # (Auto) 3.43 H (1.20-3.40) K/uL [place] # (Auto) 0.89 H (0.11-0.59) K/uL Eos # (Auto) 0.18 (0.00-0.50) K/uL Baso # (Auto) 0.04 (0.00-0.20) K/uL Immature Gran # (Auto) 0.05 (0.01-0.20) K/uL PT 10.3 (9.0-12.0) Seconds INR 1.0 (0.9-1.1) APTT 24 (21-31) Seconds PTT Ratio 0.9 Sodium 139 (136-145) mmol/L Potassium 3.9 (3.5-5.1) mmol/L Chloride 105 (98-107) mmol/L Carbon Dioxide 24 (21-32) mmol/L Anion Gap 10 (3-11) BUN 13 (6-23) mg/dl Creatinine 0.78 (0.6-1.2) mg/dl Est Cr Clr Drug Dosing 53.9 ml/min eGFR 75.79 BUN/Creatinine Ratio 16.7 (10-20) Glucose 124 H (70-99(Fasting)) mg/dl Calcium 9.5 (8.6-10.3) mg/dl Total Bilirubin 1.3 H (0.2-1.0) mg/dl AST 19 (13-39) U/L ALT 13 (7-52) U/L Alkaline Phosphatase 82 (34-104) U/L Total Protein 6.8 (6.0-8.3) gm/dl Albumin 3.6 (3.4-5.0) gm/dl Globulin 3.2 (2.5-4.0) gm/dl Albumin/Globulin Ratio 1.1 (0.9-2) Urine Color Yellow Urine Appearance Cloudy A (Clear) Urine pH 7.0 (4.5-7.5) Ur Specific [place] 1.020 (1.000-1.030) Urine Protein 1+ H (Negative) Urine Glucose (UA) Negative (Negative) Urine Ketones 1+ H (Negative) Urine Blood Negative (Negative) Urine Nitrite Negative (Negative) Urine Bilirubin Negative (Negative) Urine Urobilinogen Positive H (Negative) Ur Leukocyte Esterase 1+ H (Negative) Urine WBC (Auto) 11-20 H (0-5) /hpf Urine RBC (Auto) 0-2 (0-2) /hpf U Hyaline Cast (Auto) 3-5 H (0-2) /lpf U Epithel Cells (Auto) 0-2 (0-2) /hpf Urine Bacteria (Auto) 4+ H (None Seen) Urine Mucus Present A (None Prsent) Urine Comment Imaging Data Radiologist's Impression: Hip CT 09/18/25 19:09 CT of the left hip without contrast Technique: Noncontrast axial in the left hip. Coronal and sagittal reformatted images made available for review. No comparison Findings: Diffuse osteopenia. Comminuted displaced angulated subcapital left femoral neck fracture. Acetabulum and femoral head maintains a normal anatomic relationship. Subtle associated soft tissue swelling. Impression Comminuted displaced angulated left subcapital femoral neck fracture Electronically signed by Samuel Han 09-18-2025 8:[address] 09/18/25 19:28 CT of the pelvis without contrast Technique: Noncontrast axial images of the pelvis. Coronal and sagittal reformatted images made available for review No comparison Findings: Comminuted displaced angulated left subcapital femoral neck fracture without dislocation. Fibroid uterus Moderate amount of stool within the colon Impression Comminuted displaced angulated left subcapital femoral neck fracture Electronically signed by Samuel Han 09-18-2025 8:03 PM MDM Narrative Patient is an 84-year-old female who presents from [facility] for fracture of her left femur. Had outpatient x-ray yesterday which showed a subcapital fracture of the left femoral head. Neurovascularly intact on examination. Obviously deformity noted. CT ordered which shows evidence of a comminuted displaced angulated left subcapital femoral neck fracture. Discussed the case with the PA with orthopedics Lilliam who recommends admission to hospitalist service for preop clearance and plan for operative repair tomorrow if cleared. Patient was made n.p.o. after midnight. Lab work was reviewed. She does have evidence of 4+ bacteria though no fever. Difficult to obtain any symptomatic history due to her underlying dementia. Will order a culture and hold on antibiotics until culture results return. Stable for admission to hospitalist service. Impression & Plan Femoral neck fracture, Asymptomatic bacteriuria Discharge Plan Visit Data Chief Complaint: Hip Pain Stated Complaint: L HIP FRACTURE ED Provider: Kunal White Discharge Problem: Femoral neck fracture, Asymptomatic bacteriuria Patient Disposition: Admitted As Inpatient Condition: Good Forms Stand Alone Forms: [facility] [employer] Prescriptions Prescriptions: No Action triamcinolone acetonide 0.1 % Cream 1 applic TOPICAL Q12H PRN (Reason: Itching) risperidone 1 mg/mL solution 0.25 mg PO DAILY risperidone 1 mg/mL solution 0.5 mg PO HS metronidazole 0.75 % cream 1 applic TOPICAL BID polyethylene glycol 3350 [Miralax] 17 gram/dose Powder 17 g PO DAILY PRN (Reason: Constipation) acetaminophen 325 mg Tablet 650 mg PO Q4H MDD 3gm/24hr PRN (Reason: fever or pain) Qty: 100 0RF memantine 10 mg tablet 10 mg PO BID Qty: 60 0RF Referrals Referrals: Luis Alberto Prado MD [Primary Care Provider] -
--- NOTE | 2025-09-18 22:11 | History & Physical Report ---
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 is in the room. provided H&P. Patient is oriented to only name. states patient thinks is a familiar person. Patient ambulates with rollator walker. She was in the toilet. When she got from the toilet she slipped and fell. She fell last Thursday. There was not much stuff at senior living on the weekend as per . Patient was comfortable when she was put on bed and when she was sitting. But when tried to walk she complained of pain in the right leg. Finally was able to get x-ray today morning and was brought to the ER . Patient resting comfortably and hemodynamically stable. No complaints of any other pain as per . No fevers. No nausea or vomiting. She is incontinent of urine and stools. Could not get much history as patient has severe dementia. Closed left femoral fracture Status post mechanical fall Imaging studies showing commuted displaced angulated left subcapital femoral neck fracture Patient has severe dementia and ambulates with rollator walker Labs are okay. Has UTI. EKG okay Son is coming tomorrow afternoon. wants orthopedics to talk to her son when he arrives tomorrow afternoon before the procedure Patient should be at moderate risk with any procedures. Pain control. NPO. IV fluids Ortho consult in a.m. Thrombocytopenia Platelets 120 Will follow repeat labs UTI Will follow cultures Empiric Rocephin Severe Alzheimer's dementia On Memantine and risperidone Will monitor for delirium CKD stage III Presented with creatinine 0.7 Will follow labs DVT prophylaxis SCDs on right leg Anticoagulation as per orthopedics Disposition Medical floor CODE STATUS Full code as per my discussion with the History of Present Illness Chief Complaint: Status post fall and left hip fracture Primary Care Provider: Luis Alberto Prado MD 84-year-old female currently residing at [facility] with past med history significant for CKD stage III, psoriatic arthritis, osteoporosis, migraine, 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 is in the room. provided H&P. Patient is oriented to only name. states patient thinks is a familiar person. Patient ambulates with rollator walker. She was in the toilet. When she got from the toilet she slipped and fell. She fell last Thursday. There was not much stuff at senior living on the weekend as per . Patient was comfortable when she was put on bed and when she was sitting. But when tried to walk she complained of pain in the right leg. Finally was able to get x-ray today morning and was brought to the ER . Patient resting comfortably and hemodynamically stable. No complaints of any other pain as per . No fevers. No nausea or vomiting. She is incontinent of urine and stools. Could not get much history as patient has severe dementia. Past med history. As mentioned above. Past surgical history. Right breast biopsy. Colonoscopy. Right partial mastectomy. Appendectomy. Sigmoidoscopy. Removal of cataract. Social history. . Current living in memory unit. No smoking. No drug use. Family history. Mother had depression. Father had endocarditis, CLL. Brother had celiac disease. Neurofibromatosis. Allergies Allergy/AdvReac Type Severity Reaction Status Date / Time No Known Allergies Allergy Unknown Verified 05/20/25 17:54 Home Medications Medication Instructions Recorded Confirmed Type acetaminophen 325 mg tablet 650 mg PO QID PRN Pain 09/18/25 09/18/25 History memantine 10 mg tablet 10 mg PO BID 09/18/25 09/18/25 History polyethylene glycol 3350 17 gram 17 g PO DAILY PRN Constipation 09/18/25 09/18/25 History oral powder packet (Miralax) risperidone 1 mg/mL oral solution 0.25 mg PO DAILY 09/18/25 09/18/25 History risperidone 1 mg/mL oral solution 0.5 mg PO HS 09/18/25 09/18/25 History triamcinolone acetonide 0.1 % 1 applic topical BID PRN Itching 09/18/25 09/18/25 History topical cream Past Med/Surg History Problem List (Updated 09/18/25 @ 22:20 by Chapin Spencer MD) Closed left femoral fracture Asymptomatic bacteriuria (Acute) Femoral neck fracture (Acute) Acute metabolic encephalopathy Dehydration, mild Dementia in Alzheimer's disease with delirium Altered mental status Dementia (Acute) Weakness (Acute) Anaplasmosis Sepsis Fever (Acute) Leukopenia (Acute) Thrombocytopenia (Acute) S/P breast lumpectomy (Acute) Encounter for pre-operative examination Chest pain (Acute 05/16/14) Chest pain (Acute) Psoriatic arthritis (Chronic) Medical History (Updated 09/18/25 @ 22:20 by Chapin Spencer MD) Skin cancer Seroma of breast Right breast Breast cancer, right breast 12/29/18 Rosacea Osteoporosis GERD (gastroesophageal reflux disease) Migraines Psoriatic arthritis Hepatitis H/O HEPATITIS A CHILD, UNKNOWN KIND. History of hepatitis as a child Surgical History (Updated 05/08/25 @ 00:08 by William Gomez) History of cholecystectomy Status post surgery Re-excision right lumpectomy for positive margin on 03/16/19 Status post partial mastectomy of right breast With SLN biopsy on 02/16/19 Dr. Bowman History of appendectomy History of cataract surgery LEFT CATARACT History of cholecystectomy History of colonoscopy Social History Smoking Status: Unknown if ever smoked Second Hand Exposure: No; Do You Dip or Chew Tobacco: No; Preferred Language: Greek Communication Ability: Impaired Communication Ability Comment: Pts speech is slowed, answers some simple yes/no questions Mosaic Technician Required: No Beliefs That Will Affect Care: None Current Living Situation: Personal Care Facility Current Living Situation Comment: lives with Other Information That Helps Us Care for You: No Feels Safe at Home: Yes Assistive Devices: None Review of Systems Review of Systems: Unobtainable due to cognitive status Physical Exam Physical Exam: General-Not in distress Head- atraumatic Eyes- PERRL. ENT- oropharynx dry Neck- supple, no JVD. Lungs- clear to auscultation no wheezing or crackles Heart- regular rhythm; no murmur, no gallop. Abdomen- normal bowel sounds, soft, nontender, no distension Extremities- left lower extremity shortened and externally rotated Neuro- alert, oriented x 1; PERRL, no facial palsy; no dysarthria; Results & Data Results & Data Vital Signs (Past 12 Hours) Vital Signs Pulse Resp BP Pulse Ox O2 Del Method 09/18/25 19:08 88 09/18/25 18:36 71 18 131/98 97 Room Air Diagnostic Findings Laboratory Results WBC 11.36 K/ul (4.8-10.8) H 09/18/25 19:06 RBC 4.61 M/uL (4.20-5.40) 09/18/25 19:06 Hgb 13.5 g/dL (12.0-16.0) 09/18/25 19:06 Hct 39.8 % (37.0-47.0) 09/18/25 19:06 MCV 86.3 fL (80.0-100.0) 09/18/25 19:06 MCH 29.3 pg (25.0-34.0) 09/18/25 19:06 MCHC 33.9 g/dL (32.0-36.0) 09/18/25 19:06 RDW Std Deviation 42.0 fL (36.4-46.3) 09/18/25 19:06 RDW Coeff of Hermila 13.4 % (11.5-14.5) 09/18/25 19:06 Plt Count 120 K/uL (130-400) L 09/18/25 19:06 MPV 11.3 fL (9.4-12.4) 09/18/25 19:06 Immature Gran % (Auto) 0.4 % 09/18/25 19:06 Neut % (Auto) 59.6 % 09/18/25 19:06 Lymph % (Auto) 30.2 % 09/18/25 19:06 [place] % (Auto) 7.8 % 09/18/25 19:06 Eos % (Auto) 1.6 % 09/18/25 19:06 Baso % (Auto) 0.4 % 09/18/25 19:06 Neut # (Auto) 6.77 K/uL (1.40-6.50) H 09/18/25 19:06 Lymph # (Auto) 3.43 K/uL (1.20-3.40) H 09/18/25 19:06 [place] # (Auto) 0.89 K/uL (0.11-0.59) H 09/18/25 19:06 Eos # (Auto) 0.18 K/uL (0.00-0.50) 09/18/25 19:06 Baso # (Auto) 0.04 K/uL (0.00-0.20) 09/18/25 19:06 Immature Gran # (Auto) 0.05 K/uL (0.01-0.20) 09/18/25 19:06 PT 10.3 Seconds (9.0-12.0) 09/18/25 19:06 INR 1.0 (0.9-1.1) 09/18/25 19:06 APTT 24 Seconds (21-31) 09/18/25 19:06 PTT Ratio 0.9 09/18/25 19:06 Sodium 139 mmol/L (136-145) 09/18/25 19:06 Potassium 3.9 mmol/L (3.5-5.1) 09/18/25 19:06 Chloride 105 mmol/L (98-107) 09/18/25 19:06 Carbon Dioxide 24 mmol/L (21-32) 09/18/25 19:06 Anion Gap 10 (3-11) 09/18/25 19:06 BUN 13 mg/dl (6-23) 09/18/25 19:06 Creatinine 0.78 mg/dl (0.6-1.2) 09/18/25 19:06 Est Cr Clr Drug Dosing 53.9 ml/min 09/18/25 19:06 eGFR 75.79 09/18/25 19:06 BUN/Creatinine Ratio 16.7 (10-20) 09/18/25 19:06 Glucose 124 mg/dl (70-99(Fasting)) H 09/18/25 19:06 Calcium 9.5 mg/dl (8.6-10.3) 09/18/25 19:06 Total Bilirubin 1.3 mg/dl (0.2-1.0) H 09/18/25 19:06 AST 19 U/L (13-39) 09/18/25 19:06 ALT 13 U/L (7-52) 09/18/25 19:06 Alkaline Phosphatase 82 U/L (34-104) 09/18/25 19:06 Total Protein 6.8 gm/dl (6.0-8.3) 09/18/25 19:06 Albumin 3.6 gm/dl (3.4-5.0) 09/18/25 19:06 Globulin 3.2 gm/dl (2.5-4.0) 09/18/25 19:06 Albumin/Globulin Ratio 1.1 (0.9-2) 09/18/25 19:06 Urine Color Yellow 09/18/25 20:08 Urine Appearance Cloudy (Clear) A 09/18/25 20:08 Urine pH 7.0 (4.5-7.5) 09/18/25 20:08 Ur Specific [place] 1.020 (1.000-1.030) 09/18/25 20:08 Urine Protein 1+ (Negative) H 09/18/25 20:08 Urine Glucose (UA) Negative (Negative) 09/18/25 20:08 Urine Ketones 1+ (Negative) H 09/18/25 20:08 Urine Blood Negative (Negative) 09/18/25 20: Urine Nitrite Negative (Negative) 09/18/25 20:08 Urine Bilirubin Negative (Negative) 09/18/25 20:08 Urine Urobilinogen Positive (Negative) H 09/18/25 20:08 Ur Leukocyte Esterase 1+ (Negative) H 09/18/25 20:08 Urine WBC (Auto) 11-20 /hpf (0-5) H 09/18/25 20:08 Urine RBC (Auto) 0-2 /hpf (0-2) 09/18/25 20:08 U Hyaline Cast (Auto) 3-5 /lpf (0-2) H 09/18/25 20:08 U Epithel Cells (Auto) 0-2 /hpf (0-2) 09/18/25 20:08 Urine Bacteria (Auto) 4+ (None Seen) H 09/18/25 20:08 Urine Mucus Present (None Prsent) A 09/18/25 20:08 Urine Comment 09/18/25 20:[address] 09/18/25 19:09 CT of the left hip without contrast Technique: Noncontrast axial in the left hip. Coronal and sagittal reformatted images made available for review. No comparison Findings: Diffuse osteopenia. Comminuted displaced angulated subcapital left femoral neck fracture. Acetabulum and femoral head maintains a normal anatomic relationship. Subtle associated soft tissue swelling. Impression Comminuted displaced angulated left subcapital femoral neck fracture Electronically signed by Samuel Han 09-18-2025 8:[address] 09/18/25 19:28 CT of the pelvis without contrast Technique: Noncontrast axial images of the pelvis. Coronal and sagittal reformatted images made available for review No comparison Findings: Comminuted displaced angulated left subcapital femoral neck fracture without dislocation. Fibroid uterus Moderate amount of stool within the colon Impression Comminuted displaced angulated left subcapital femoral neck fracture Electronically signed by Samuel Han 09-18-2025 8:03 PM ECG Additional Comments: EEG. Normal sinus rhythm with rate of 89. Nonspecific ST abnormalities. Code Status & VTE Plan VTE Prophylaxis Plan VTE Prophylaxis will be ordered: Yes
[2025-09-18] MEDS: cefTRIAXone SODIUM 2,000 MG/50 ML BAG IV STA (23:23)
[2025-09-18] MEDS: D5W AND 1/2NSS 1,000 ML IV SCH (23:23)
[2025-09-19] MEDS ORDERED: POLYETHYLENE (MIRALAX) 17 GM PACK PO PRN ×2 (01:47)
[2025-09-19] MEDS ORDERED: ACETAMINOPHEN 1,000 MG/100 ML VIAL IV PRN (01:47)
[2025-09-19] MEDS ORDERED: HYDROmorphone INJ 0.5 MG/0.5 ML SYR IV PRN (01:47)
[2025-09-19] MEDS ORDERED: TRIAMCINOLONE ACET 0.1% CR 15 GM TUBE TOP PRN (01:47)
[2025-09-19 07:08] LABS: Hematocrit (blood only) 35.5 % (37.0-47.0); Hemoglobin 12.1 g/dL (12.0-16.0); Immature Granulocytes # (auto) 0.03 K/uL (0.01-0.20); Immature Granulocytes % (auto) 0.3 %; Mean Corpuscular Hemoglobin 29.5 pg (25.0-34.0); Mean Corpuscular Volume 86.6 fL (80.0-100.0); Platelet Count 117 K/uL (130-400); RDW Standard Deviation 42.6 fL (36.4-46.3); Red Blood Count 4.10 M/uL (4.20-5.40); White Blood Count 10.38 K/ul (4.8-10.8)
[2025-09-19 07:26] LABS: Anion Gap 6.0 (3-11); Blood Urea Nitrogen 11.0 mg/dl (6-23); Calcium 8.8 mg/dl (8.6-10.3); Carbon Dioxide 25.0 mmol/L (21-32); Chloride 106.0 mmol/L (98-107); Creatinine Clr Calc Pharmacy 53.5 ml/min; Glucose 140.0 mg/dl (70-99(Fasting)); Magnesium 2.1 mg/dl (1.7-2.4); Potassium 3.9 mmol/L (3.5-5.1); Sodium 137.0 mmol/L (136-145)
--- NOTE | 2025-09-19 09:02 | XRay Report ---
SINGLE VIEW CHEST CLINICAL HISTORY: Preoperative assessment. FINDINGS: An AP, portable, upright chest radiograph is compared to study dated 05/20/2025 and correlate d with chest CT dated 02/19/2019. The heart is mildly enlarged noting atherosclerotic calcification of the thoracic aorta. The pulmonary vasculature is noncongested. Chronic interstitial thickening is si milar to previous. There is mild bibasilar scarring/atelectasis. No airspace consolidation or large p leural effusion is identified. No pneumothorax is seen. The skeletal structures are osteopenic. The b tiffanie thorax is grossly intact. IMPRESSION: Mild cardiomegaly with no active disease in the chest. ACT 112: Negative or not required by law. Electronically signed by: Aroldo Overton M.D. 09/19/2025 9:01 AM
[2025-09-19] MEDS: MEMANTINE HCL 10 MG TAB PO SCH (09:10)
--- NOTE | 2025-09-19 09:45 | Orthopedic Consultation ---
Date of Service September 19, 2025 Assessment & Plan (1) Closed left femoral fracture: Case/imaging reviewed and discussed with Dr Hewitt * Recommend OR 09/18/25, keep NPO * Disposition: TBD * Daily treatment: Physical Therapy/ Occupational Therapy per protocol after surgery * Weight bearing status: Non weight bearing on LLE until post-op * Pain control * Remainder care per primary team * Discussed with patient risks and benefits of surgery including pain, infection, bleeding, risk of anesthesia, prolonged healing time, incomplete relief of symptoms, injury to surrounding tissue and DVT. History of Present Illness Reason for Consultation: Left hip fracture . Requesting Physician: .Dr. Spencer Attending Physician: Deonte Orozco MD .Patient is [id number] female currently residing at 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 Current workup including CT of left hip. Orthopedics consulted for management recommendations. At time of exam patient was very confused and unsure why she was in the hospital. Pt does not recall a fall or that she has pain in her left hip. Allergies Allergy/AdvReac Type Severity Reaction Status Date / Time No Known Allergies Allergy Unknown Verified 05/20/25 17:54 Home Medications Medication Instructions Recorded Confirmed Type acetaminophen 325 mg tablet 650 mg PO QID PRN Pain 09/18/25 09/18/25 History memantine 10 mg tablet 10 mg PO BID 09/18/25 09/18/25 History polyethylene glycol 3350 17 gram 17 g PO DAILY PRN Constipation 09/18/25 09/18/25 History oral powder packet (Miralax) risperidone 1 mg/mL oral solution 0.25 mg PO DAILY 09/18/25 09/18/25 History risperidone 1 mg/mL oral solution 0.5 mg PO HS 09/18/25 09/18/25 History triamcinolone acetonide 0.1 % 1 applic topical BID PRN Itching 09/18/25 09/18/25 History topical cream Past Med/Surg History Problem List Closed left femoral fracture Asymptomatic bacteriuria (Acute) Femoral neck fracture (Acute) Acute metabolic encephalopathy Dehydration, mild Dementia in Alzheimer's disease with delirium Altered mental status Dementia (Acute) Weakness (Acute) Anaplasmosis Sepsis Fever (Acute) Leukopenia (Acute) Thrombocytopenia (Acute) S/P breast lumpectomy (Acute) Encounter for pre-operative examination Chest pain (Acute 05/16/14) Chest pain (Acute) Psoriatic arthritis (Chronic) Medical History Skin cancer Seroma of breast Right breast Breast cancer, right breast 12/29/18 Rosacea Osteoporosis GERD (gastroesophageal reflux disease) Migraines Psoriatic arthritis Hepatitis H/O HEPATITIS A CHILD, UNKNOWN KIND. History of hepatitis as a child Surgical History History of cholecystectomy Status post surgery Re-excision right lumpectomy for positive margin on 03/16/19 Status post partial mastectomy of right breast With SLN biopsy on 02/16/19 Dr. Bowman History of appendectomy History of cataract surgery LEFT CATARACT History of cholecystectomy History of colonoscopy Social History Smoking Status: Unknown if ever smoked Second Hand Exposure: No; Do You Dip or Chew Tobacco: No; Preferred Language: Lao Communication Ability: Impaired Communication Ability Comment: Pts speech is slowed, answers some simple yes/no questions Dairy Worker Required: No Beliefs That Will Affect Care: None Current Living Situation: Personal Care Facility Current Living Situation Comment: lives with Other Information That Helps Us Care for You: No Feels Safe at Home: Yes Assistive Devices: Walker Review of Systems All systems reviewed & are unremarkable except as noted in HPI & below. Physical Exam . * General: Alert and oriented, no acute distress * Constitutional: well-developed, well-nourished. * Respiratory: Normal respiratory effort, no distress * Gastrointestinal: No tenderness to palpation, no rigidity or guarding. * Skin: No rash or lesion. * Neurologic: Grossly normal * Musculoskeletal: Left hip with irritability with log rolling. Sensation intact plantar/dorsal foot. Brisk capillary refill. Results & Data Results & Data Laboratory Results Laboratory Results - last 24 hr 09/18/25 09/18/25 09/18/25 19:06 20:08 23:27 WBC 11.36 H RBC 4.61 Hgb 13.5 Hct 39.8 MCV 86.3 MCH 29.3 MCHC 33.9 RDW Std Deviation 42.0 RDW Coeff of Hermila 13.4 Plt Count 120 L MPV 11.3 Immature Gran % (Auto) 0.4 Neut % (Auto) 59.6 Lymph % (Auto) 30.2 Milam % (Auto) 7.8 Eos % (Auto) 1.6 Baso % (Auto) 0.4 Neut # (Auto) 6.77 H Lymph # (Auto) 3.43 H Milam # (Auto) 0.89 H Eos # (Auto) 0.18 Baso # (Auto) 0.04 Immature Gran # (Auto) 0.05 PT 10.3 INR 1.0 APTT 24 PTT Ratio 0.9 Sodium 139 Potassium 3.9 Chloride 105 Carbon Dioxide 24 Anion Gap 10 BUN 13 Creatinine 0.78 Est Cr Clr Drug Dosing 53.9 eGFR 75.79 BUN/Creatinine Ratio 16.7 Glucose 124 H Calcium 9.5 Magnesium Total Bilirubin 1.3 H AST 19 ALT 13 Alkaline Phosphatase 82 Total Protein 6.8 Albumin 3.6 Globulin 3.2 Albumin/Globulin Ratio 1.1 Urine Color Yellow Urine Appearance Cloudy A Urine pH 7.0 Ur Specific [place] 1.020 Urine Protein 1+ H Urine Glucose (UA) Negative Urine Ketones 1+ H Urine Blood Negative Urine Nitrite Negative Urine Bilirubin Negative Urine Urobilinogen Positive H Ur Leukocyte Esterase 1+ H Urine WBC (Auto) 11-20 H Urine RBC (Auto) 0-2 U Hyaline Cast (Auto) 3-5 H U Epithel Cells (Auto) 0-2 Urine Bacteria (Auto) 4+ H Urine Mucus Present A Urine Comment Nasal Screen MRSA (PCR) Negative 09/19/25 06:28 WBC 10.38 RBC 4.10 L Hgb 12.1 Hct 35.5 L MCV 86.6 MCH 29.5 MCHC 34.1 RDW Std Deviation 42.6 RDW Coeff of Hermila 13.5 Plt Count 117 L MPV 11.5 Immature Gran % (Auto) 0.3 Neut % (Auto) 55.0 Lymph % (Auto) 33.5 Mil[place] % (Auto) 8.8 Eos % (Auto) 2.0 Baso % (Auto) 0.4 Neut # (Auto) 5.71 Lymph # (Auto) 3.48 H Mil[place] # (Auto) 0.91 H Eos # (Auto) 0.21 Baso # (Auto) 0.04 Immature Gran # (Auto) 0.03 PT INR APTT PTT Ratio Sodium 137 Potassium 3.9 Chloride 106 Carbon Dioxide 25 Anion Gap 6 BUN 11 Creatinine 0.77 Est Cr Clr Drug Dosing 53.5 eGFR 76.97 BUN/Creatinine Ratio 14.3 Glucose 140 H Calcium 8.8 Magnesium 2.1 Total Bilirubin AST ALT Alkaline Phosphatase Total Protein Albumin Globulin Albumin/Globulin Ratio Urine Color Urine Appearance Urine pH Ur Specific [place] Urine Protein Urine Glucose (UA) Urine Ketones Urine Blood Urine Nitrite Urine Bilirubin Urine Urobilinogen Ur Leukocyte Esterase Urine WBC (Auto) Urine RBC (Auto) U Hyaline Cast (Auto) U Epithel Cells (Auto) Urine Bacteria (Auto) Urine Mucus Urine Comment Nasal Screen MRSA (PCR) . Diagnostic Findings Hip CT 09/18/25 19:09 CT of the left hip without contrast Technique: Noncontrast axial in the left hip. Coronal and sagittal reformatted images made available for review. No comparison Findings: Diffuse osteopenia. Comminuted displaced angulated subcapital left femoral neck fracture. Acetabulum and femoral head maintains a normal anatomic relationship. Subtle associated soft tissue swelling. Impression Comminuted displaced angulated left subcapital femoral neck fracture Electronically signed by Samuel Han 09-18-2025 8:[address] 09/18/25 19:28 CT of the pelvis without contrast Technique: Noncontrast axial images of the pelvis. Coronal and sagittal reformatted images made available for review No comparison Findings: Comminuted displaced angulated left subcapital femoral neck fracture without dislocation. Fibroid uterus Moderate amount of stool within the colon Impression Comminuted displaced angulated left subcapital femoral neck fracture Electronically signed by Samuel Han 09-18-2025 8:03 PM Chest X-Ray 09/19/25 07:42 SINGLE VIEW CHEST CLINICAL HISTORY: Preoperative assessment. FINDINGS: An AP, portable, upright chest radiograph is compared to study dated 05/20/2025 and correlated with chest CT dated 02/19/2019. The heart is mildly enlarged noting atherosclerotic calcification of the thoracic aorta. The pulmonary vasculature is noncongested. Chronic interstitial thickening is similar to previous. There is mild bibasilar scarring/atelectasis. No airspace consolidation or large pleural effusion is identified. No pneumothorax is seen. The skeletal structures are osteopenic. The bony thorax is grossly intact. IMPRESSION: Mild cardiomegaly with no active disease in the chest. ACT 112: Negative or not required by law. Electronically signed by: Aroldo Overton M.D. 09/19/2025 9:01 AM . PG Care Time/CCT Total # of Minutes Spent Total Time Spent with Patient: Total time spent is greater than 50% in coordination of care (as documented) at patient's floor/unit and/or counseling patient: Supervising Physician Co-Signing Physician Notes I met and spoke with the patient's and her son in the preoperative area. Reviewed the diagnosis, prognosis, and recommended treatment for bipolar cemented hip hemiarthroplasty for the femoral neck fracture and significant osteoporosis. I reviewed that the risks include, but are not limited to, infection, nerve or vessel injury, arthrofibrosis of the hip, need for repeat or revision procedures, failure of the implants, hip instability, leg length discrepancy, chronic pain or other pain syndromes, blood clots, and complications related anesthesia. We reviewed that the typical hospital course is 3-5 days and dependent on physical therapy progress and stable vital signs. She will likely need to be transferred back to her nursing facility or acute rehab facility after this hospitalization. After discussion, they both demonstrated good understanding, asked appropriate questions, and when to proceed with surgical care that I described. Informed consent was documented in the preoperative holding area[place] [address] IN/OBS CONSULT LVL 4,60M Patient Type New Diagnoses Closed fracture of neck of left femur, initial encounter S72.002A Encounter type: initial encounter Femur location: neck, unspecified portion (1) Closed left femoral fracture Encounter type: initial encounter Femur location: neck, unspecified portion Qualified Code(s): S72.002A - Fracture of unspecified part of neck of left femur, initial encounter for closed fracture
--- NOTE | 2025-09-19 12:39 | Hospitalist Progress Note ---
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 #Closed left femoral fracture #Status post mechanical fall -Imaging studies showing commuted displaced angulated left subcapital femoral neck fracture -Patient has severe dementia and ambulates with rollator walker -Labs are okay, UA with some evidence of bacterial infection vs. colonization Plan: -ortho consult, appreciate recs -this provider did recommend proceeding with surgery due to patient goals of improved quality of life and given prior ability to ambulate -Pain control. NPO. IV fluids -check xr chest, start IS for preop optimization -patient is medically optimized for procedure #Thrombocytopenia -Platelets 120 #Complicated UTI -unlikely to be significant contributor to symptoms Plan: -Will follow cultures -Empiric Rocephin #Severe Alzheimer's dementia -On Memantine and risperidone -Will monitor for delirium CKD stage III -Presented with creatinine 0.7 -Will follow labs I spent a total of 50 minutes in direct patient care, including [id number] time with the patient and/or family, reviewing medical records, ordering and reviewing diagnostic tests, and coordinating care with other healthcare providers. This time includes: history taking, physical examination, medical decision making, counseling, ECG interpretation, imaging interpretation, lab interpretation, orders, and education, excluding time spent in the performance of separately billed services. Admission and Anticipated Discharge Date Admission Date: September 18, 2025 Subjective Patient seen and examined at bedside. Minimally interactive at baseline. Long discussion with in regards to pros and cons of hip surgery given her stage of dementia. Patient had some mobility with a walker prior to incident. Discussed that for most patients it is vital to proceed with hip repair given significant quality of life and mortality benefit associated with repair. This provider recommended proceeding with procedure if offered by ortho due to prior functional status and to limit suffering. He was appreciative of the conversation. Review of Systems Review of Systems: -unable to ask patient due to mental sta tus Physical Exam Physical Exam: Gen: A&O 1 grimancing with any left leg movement HEENT: NCAT, EOMI, not icteric. External ears normal. No rhinorrhea. Moist mucous membranes. Neck: Supple, full range of motion, no observable masses, No meningeal sign. Lungs: No Respiratory distress. CV: RRR, no edema. Abdomen: Soft, nondistended, No rebound tenderness. MSK: No joint swelling, no redness. Skin: No rashes, petechiae, lesions. Normal color per patient. Neuro: Normal Gait, Grossly intact. Psych: notable dementia Results & Data Results & Data Vital Signs (Past 12 Hours) Vital Signs Temp Pulse Pulse Resp BP Pulse Ox O2 Del Method 09/19/25 07:26 37 C 62 18 125/77 96 Room Air 09/19/25 01:50 Room Air 09/19/25 01:50 90 16 169/72 H 92 Room Air 09/19/25 01:12 89 132/91 95 Room Air Laboratory Results -personally reviewed, no leukocytosis, creatinine at baseline, no elevated BUN, UA with mild bacteria Medications Administered Dextrose/Sodium Chloride (D5w And 1/2nss) 1,000 mls @ 100 mls/hr IV .Q10H LAUREN Stop: 09/21/25 22:29 Last Admin: 09/19/25 09:17 Dose: 100 mls/hr Documented By: wanda Infusion: 09/19/25 09:17 Dose: Infused Documented By: wanda Admin: 09/18/25 23:23 Dose: 100 mls/hr Documented By: JAMES Memantine (Memantine Hcl 10 Mg Tab) 10 mg PO BID LAUREN Stop: 10/19/25 08:59 Last Admin: 09/19/25 09:10 Dose: 10 mg Documented By: wanda Risperidone (Risperidone 1 Mg/Ml Solution) 0.25 mg PO DAILY LAUREN Stop: 10/19/25 08:59 Last Admin: 09/19/25 09:10 Dose: 0.25 mg Documented By: wanda (1) Closed left femoral fracture Encounter type: initial encounter Femur location: neck, unspecified portion Qualified Code(s): S72.002A - Fracture of unspecified part of neck of left femur, initial encounter for closed fracture
[2025-09-19] MEDS ORDERED: BUPIVACAINE 0.5 % 5 MG/1 ML PF 10ML VIAL ONE (13:38)
[2025-09-19] MEDS ORDERED: MIDAZOLAM HCL 1 MG/ML 2ML VIAL ONE (13:38)
[2025-09-19] MEDS ORDERED: LIDOCAINE 2% 2 ML VIAL/AMP(20MG/ML) INFIL ONE ×2 (13:38→14:24)
[2025-09-19] MEDS ORDERED: SODIUM CHLORIDE 0.9% PF INJ 10 ML VIAL ONE (14:00)
[2025-09-19] MEDS: LACTATED RINGER'S 1,000 ML IV SCH (14:02)
[2025-09-19] MEDS ORDERED: DEXAMETHASONE SOD INJ 4 MG/ML VIAL ONE (14:24)
[2025-09-19] MEDS ORDERED: PROPOFOL IV EMULSION 10 MG/ML 20 ML VIAL IV ONE (14:24)
[2025-09-19] MEDS ORDERED: ONDANSETRON INJ 2 MG/ML 2 ML VIAL ONE (14:24)
[2025-09-19] MEDS ORDERED: ROCURONIUM BROMIDE 10 MG/ML 5 ML VIAL IV ONE ×2 (14:25→16:21)
[2025-09-19] MEDS ORDERED: ATROPINE SULFATE 0.1 MG/ML 10ML SYR IV PRN (14:49)
[2025-09-19] MEDS ORDERED: ONDANSETRON INJ 2 MG/ML 2 ML VIAL IV PRN (14:49)
--- NOTE | 2025-09-19 14:49 | Anesthesiology Consultation ---
Date of Service September 19, 2025 Assessment & Plan (1) Encounter for pre-operative examination: Chart Review Chart Review: Acceptable Risk for Surgery and Patient NOT seen in Pre Admission Testing Consults Requested none History Surgery Operation Date: 09/19/25 08:55 Proposed Procedures p Left Cemented Hemiarthroplasty Hip - Jamaal Hewitt MD Height/Weight Height: 5 ft 3 in Weight: 71.9 kg Allergies Allergy/AdvReac Type Severity Reaction Status Date / Time No Known Allergies Allergy Unknown Verified 05/20/25 17:54 Medications Home Medications Medication Instructions Recorded Confirmed Last Taken acetaminophen 325 mg tablet 650 mg PO QID PRN Pain 09/18/25 09/18/25 Unknown memantine 10 mg tablet 10 mg PO BID 09/18/25 09/18/25 Unknown polyethylene glycol 3350 17 gram 17 g PO DAILY PRN Constipation 09/18/25 09/18/25 Unknown oral powder packet (Miralax) risperidone 1 mg/mL oral solution 0.25 mg PO DAILY 09/18/25 09/18/25 Unknown risperidone 1 mg/mL oral solution 0.5 mg PO HS 09/18/25 09/18/25 Unknown triamcinolone acetonide 0.1 % 1 applic topical BID PRN Itching 09/18/25 09/18/25 Unknown topical cream Active Medications Generic Name Dose Route Start Last Admin Trade Name Freq PRN Reason Stop Dose Admin Dextrose/Sodium Chloride 1,000 mls @ 100 mls/hr 09/18/25 22:30 09/19/25 09:17 D5w And 1/2nss IV 09/21/25 22:29 100 mls/hr .Q10H LAUREN Administration Lactated Ringer's 1,000 mls @ 15 mls/hr 09/19/25 14:00 09/19/25 14:02 Lr IV 09/22/25 13:59 15 mls/hr .Q24H LAUREN Administration Protocol Memantine 10 mg 09/19/25 09:00 09/19/25 09:10 Memantine Hcl 10 Mg Tab PO 10/19/25 08:59 10 mg BID LAUREN Administration Risperidone 0.25 mg 09/19/25 09:00 09/19/25 09:10 Risperidone 1 Mg/Ml Solution PO 10/19/25 08:59 0.25 mg DAILY LAUREN Administration NPO Date Last Intake of Fluids: 09/18/25 Date Last Intake of Solids: 09/18/25 Past Medical History Medical History Skin cancer Seroma of breast Right breast Breast cancer, right breast 12/29/18 Rosacea Osteoporosis GERD (gastroesophageal reflux disease) Migraines Psoriatic arthritis Hepatitis H/O HEPATITIS A CHILD, UNKNOWN KIND. History of hepatitis as a child Past Surgical History Surgical History History of cholecystectomy Status post surgery Re-excision right lumpectomy for positive margin on 03/16/19 Status post partial mastectomy of right breast With SLN biopsy on 02/16/19 Dr. Bowman History of appendectomy History of cataract surgery LEFT CATARACT History of cholecystectomy History of colonoscopy Social History Smoking Status: Unknown if ever smoked Do You Dip or Chew Tobacco: No Alcohol type: wine and hard liquor alcohol intake frequency: 0-2 drinks per day substance use type: does not use Physical Exam Vital Signs Last Vital Signs Temp 99.1 F 09/19/25 13:51 Pulse 87 09/19/25 13:51 Resp 20 09/19/25 13:51 BP 136/76 09/19/25 13:51 Pulse Ox 91 09/19/25 13:51 O2 Del Method Room Air 09/19/25 13:51 Testing Laboratory Results 09/19/25 06:28 09/19/25 06:28 PT 10.3 Seconds (9.0-12.0) 09/18/25 19:06 INR 1.0 (0.9-1.1) 09/18/25 19:06 APTT 24 Seconds (21-31) 09/18/25 19:06 Urine Color Yellow 09/18/25 20:08 Urine Appearance Cloudy (Clear) A 09/18/25 20:08 Urine pH 7.0 (4.5-7.5) 09/18/25 20:08 Ur Specific [place] 1.020 (1.000-1.030) 09/18/25 20:08 Urine Protein 1+ (Negative) H 09/18/25 20:08 Urine Glucose (UA) Negative (Negative) 09/18/25 20:08 Urine Ketones 1+ (Negative) H 09/18/25 20:08 Urine Nitrite Negative (Negative) 09/18/25 20:08 Ur Leukocyte Esterase 1+ (Negative) H 09/18/25 20:08 Urine WBC (Auto) 11-20 /hpf (0-5) H 09/18/25 20:08 Urine RBC (Auto) 0-2 /hpf (0-2) 09/18/25 20:08 U Hyaline Cast (Auto) 3-5 /lpf (0-2) H 09/18/25 20:08 U Epithel Cells (Auto) 0-2 /hpf (0-2) 09/18/25 20:08 Urine Bacteria (Auto) 4+ (None Seen) H 09/18/25 20:08 09/18/25 20:08 Urine Culture - Final Urine,Straight Cath Three types of organisms present, all high counts. Repeat collection recommended. No further identifications or sensitivities to follow. Electrocardiogram Date: 09/18/25 Findings: + NSR @
[2025-09-19] MEDS: TRANEXAMIC ACID / 0.7% NACL 1,000 MG/100 ML BAG IV ONE ×2 (14:58→17:14)
--- NOTE | 2025-09-19 15:09 | History & Physical Bridge Note ---
Date of Service September 19, 2025 History & Physical Bridge Note I have examined the patient, reviewed the History & Physical and in the interval since the performance of the History & Physical I have noted the following changes of clinical significance: no changes noted
[2025-09-19] MEDS ORDERED: SUGAMMADEX SODIUM 200 MG/2 ML VIAL IV ONE (16:24)
--- NOTE | 2025-09-19 17:10 | Anesthesiology Progress Note ---
Date of Service September 19, 2025 Anesthesia Post Procedure Vital Signs Vital Signs: Temp Pulse Pulse Pulse Resp BP BP 09/19/25 13:51 37.3 C 87 20 136/76 09/19/25 07:26 37 C 62 18 125/77 09/19/25 01:50 09/19/25 01:50 90 16 169/72 H 09/19/25 01:12 89 132/91 09/18/25 23:27 99 H 138/78 09/18/25 23:06 102 H 09/18/25 19:08 88 09/18/25 18:36 71 18 131/98 Pulse Ox O2 Del Method 09/19/25 13:51 91 Room Air 09/19/25 07:26 96 Room Air 09/19/25 01:50 Room Air 09/19/25 01:50 92 Room Air 09/19/25 01:12 95 Room Air 09/18/25 23:27 98 Room Air 09/18/25 23:06 09/18/25 19:08 09/18/25 18:36 97 Room Air Transfer of Care Handoff Completed per policy Notes Mental Status: alert / awake / arousable Patient Amnestic to Procedure: Yes Nausea / Vomiting: adequately controlled Pain: adequately controlled Airway Patency, RR, SpO2: stable & adequate BP & HR: stable & adequate Hydration State: stable & adequate Neuraxial Anesthesia: was administered and sensory block is resolving Anesthetic Complications: no major complications apparent
--- NOTE | 2025-09-19 18:20 | Operative Report ---
PG Post Operative Report Pre & Post Diagnosis Operation Date: 09/19/25 08:55 Pre-Op Diagnosis: Closed left femoral fracture. Post-Op Diagnosis: Closed left femoral fracture. I identified the patient and participated in the time-out.: Yes Procedure Operation Date: 09/19/25 08:55 Actual Procedures p Left Cemented Bipolar Hemiarthroplasty Hip(Left) - Jamaal Hewitt MD Surgeon Jamaal Hewitt MD Correction Officer Head Jamaal Schmitt PA-C Estimated Blood Loss 100 Findings Consistent with Post-Op Diagnosis Comminuted, osteoporotic femoral neck fracture. Danielle Biomet size 7 echo standard femoral stem 44 mm bipolar shell, 28 mm +3 cobalt chromium head. Specimens femoral head sent for pathology Complications none Disposition Accompanied Patient To Recovery: No Disposition: Recovery Room Indications 84-year-old female sustained fall at her nursing facility resulting in inability to bear weight. She is taken to the emergency room where a femoral neck fracture was diagnosed, likely from 2 days prior. I counseled the patient and her family members on the diagnosis, prognosis and recommended treatment for cemented bipolar hemiarthroplasty to treat the femoral neck fracture. Reviewed the risk, benefits, and alternatives to this approach in detail, as outlined in the preop note. Informed consent was obtained in the preoperative area with the patient's and her son to proceed. Description of Procedure On the day of surgery, the patient was evaluated in the preoperative holding area with informed consent was reviewed and confirmed by the patient. The the operative extremity was identified by the patient and then signed by myself. The patient was then turned over to anesthesia. Regional anesthetic periarticular block was performed by the anesthesia team. The patient was then taken to operating room and positioned for surgery in lateral decubitus with a Stulberg positioner and axillary roll. All bony prominences were well-padded. The operative extremity was then prepped and draped in usual sterile fashion. Surgical timeout was called by the circulating nurse and verified by all present. Laterality was confirmed and equipment was available and functional. Antibiotics had been infused. TXA was infusing. Surgery was initiated by creating a standard posterior approach to the hip with a sharp incision over the greater trochanter measuring at least 10 cm. Dissection was carried out using Bovie electrocautery for hemostasis. Skin rakes were used to assist with retracting the skin layers. The fascia was then identified and exposed using a Stephenson. We marked the midpoint to plan for a accurate repair of the IT band. Then used a 10 blade to incise to the IT band and carried up into the muscular tissues of the gluteus karis. We spread in line with the raphe and carried the opening of the fascia down distally to approximately the gluteal sling. The Charnley self-retaining retractor was then placed to hold open the fascial incision. We then internally rotated the hip and exposed the bursa which was taken down using the Bovie. We exposed the short external rotators and the piriformis tendon, which were tagged with separate sutures. We then used a Bovie to take down the piriformis and short external rotators with caution for the nearby sciatic nerve. We internally rotated the hip to expose the hip capsule we removed soft tissue by scraping with a lap sponge. A capsulotomy was performed in a T-shaped fashion across the base of the neck and extending along the course of the neck. We tacked the corners with 0 Ethibond sutures. The femoral neck fracture was then exposed. The hematoma was evacuated. The fracture extended down the inferior neck. It was planed with a sagittal saw at the inferior extent. This was felt to be low enough. We then worked to remove the femoral head first using a corkscrew and tenaculum. The ligamentum teres was resected using a Bovie. The acetabular cartilage was in good condition. Adequate hemostasis was achieved. We then sized the acetabulum using the ball shaped sizers. We had a good suction fit and fill using a 44 template. The Charnley retractor was then removed. The femoral trochanteric region was then exposing the femoral retractors. The double foot retractor was placed under the femoral neck. Sharp Hohmann was placed behind the abductor sling. This exposed the entrance to the femoral canal well. We used a jukebox route driver to remove excess lateral femoral neck and access the intertrochanteric region. We then used a canal finder to access the canal. The lateralizing reamer was then placed into this canal and used to remove excess bone from the lateral aspect of the greater trochanter to ensure no induced varus. We then began our broach sequence. A size 7 broach was then used to initiate and find the canal. This was sunk easily. We then moved sequentially to a size 9 broach which had good fit and capture. Standard neck and 48 head were trialed. It was difficult to reduce. The size down to a -6. There was not enough room to reduce. The femoral neck cut was then exposed once again. It was left too long which was blocking reduction and appropriate position of the femoral implant. The neck cut was then planned using the proprietary template from [employer]. Bovie electrocautery was used to denis the planned neck cut approximately 1 fingerbreadth above the lesser trochanter. Sagittal saw was then used to complete this cut. We then used a rongeur to to remove excess bone on the lateral aspect of the femoral neck. With a fresh neck cut and better exposure, we redid the femoral broach. We started with 7 and broached up to an 8 and had equal fit and capture at this length of neck cut. Trialing produced ability with a standard neck and a +3 head. This had adequate mandaeism of leg length and excellent stability. External rotation with the foot in full extension was to approximately 30 degrees. The hip flexed past 90 with good stability and internally rotated approximately 60 degrees before liftoff inside the acetabulum. There was excellent mid flexion stability past 60 degrees of external rotation. We then removed our trial implants and began our canal preparation. After thorough pulse lavage of the canal. We placed a tampon suction device to clear the canal, while irrigating the acetabulum. A moist sponge protected the acetabulum from debris and cement. Cement preparation began on the back table. Two bags of cement were prepared with suction with 1-1/2 minutes of mixing. A cement restrictor was placed based on the manufacturers instructions, based on the length of the stem. A pressurized cement gun was used to retrograde fill the canal after removal of the tampon suction device. Digital pressure was used to pressurize the cement in the canal. We then placed a small amount of cement near the centralizer on the stem. We then placed the stem down in the canal and use the positioner device to ensure appropriate rotation. We then ensured the implant was down to where the collar set on the calcar. Firm, still pressure was held until the cement cured. All extraneous cement debris was then scraped out with a curette and hemostat to ensure no loose debris. Once the cement had cured on the back table and the stem appeared to be well- seated and cured, thorough irrigation was performed. The trial neck and head components were then placed on the implanted stem for final check. Stability was maintained. The final implants were then loaded onto the trunnion and tapped into place to secure the Das taper. The hip was then reduced. It was taken through another trial motion. It appeared to be stable with the same parameters. The joint was thoroughly irrigated with pulse lavage. We then began our closing sequence. This involved repair of the capsule layers using side to side repair in [id number] fashion for the longitudinal cut. #5 Tycron suture was used to push through with a cutting needle in the posterior lateral femur. This was used to repair the capsule back to the base of the femoral area. Firm knot was tied to restore the piriformis and capsular corner. This repaired the back wall of the capsule well. The longitudinal capsulotomy was then repaired using 0 Ethibond suture. We irrigated once again. The IT band and fascial layer was closed with #1 PDS suture in a running and interrupted fashion. Interrupted #1 Vicryl suture was used in the deep fat and fascial fascial layers, followed by interrupted 2-0 Polysorb suture in the subcuticular layer. The final skin closure was performed with denisa. The wound was then cleansed and dressed with sterile Xeroform, sterile gauze, and ABD. Ioban was used to hold the dressing. The patient tolerated procedure well, and awoke from anesthesia without complication in the operating room. The patient was transferred to the hospital bed with an abduction pillow in place, and taken to recovery in stable condition. Disposition: The patient will be weightbearing as tolerated and begin physical therapy as soon as possible. Posterior hip precautions will be instructed by PT and OT. We will use routine DVT prophylaxis consisting of Lovenox while inpatient and likely transition to oral aspirin as an outpatient if amenable to the medical team. I attest to the content of the Intraoperative Record and any orders documented therein. Any exceptions are noted below.
--- NOTE | 2025-09-19 18:36 | Anesthesiology Progress Note ---
Date of Service September 19, 2025 Anesthesia Post Procedure Vital Signs Vital Signs: Temp Pulse Pulse Pulse Resp BP BP 09/19/25 18:30 81 17 106/58 L 09/19/25 18:20 80 18 106/69 09/19/25 18:10 88 16 103/67 09/19/25 18:01 36.4 C L 82 18 104/65 09/19/25 13:51 37.3 C 87 20 136/76 09/19/25 07:26 37 C 62 18 125/77 09/19/25 01:50 09/19/25 01:50 90 16 169/72 H 09/19/25 01:12 89 132/91 09/18/25 23:27 99 H 138/78 09/18/25 23:06 102 H 09/18/25 19:08 88 09/18/25 18:36 71 18 131/98 Pulse Ox O2 Del Method O2 Flow Rate 09/19/25 18:30 200 H Oxymask 5 09/19/25 18:20 94 Oxymask 5 09/19/25 18:10 100 Oxymask 5 09/19/25 18:01 99 Oxymask 5 09/19/25 13:51 91 Room Air 09/19/25 07:26 96 Room Air 09/19/25 01:50 Room Air 09/19/25 01:50 92 Room Air 09/19/25 01:12 95 Room Air 09/18/25 23:27 98 Room Air 09/18/25 23:06 09/18/25 19:08 09/18/25 18:36 97 Room Air Transfer of Care Handoff Completed per policy Notes Mental Status: alert / awake / arousable Patient Amnestic to Procedure: Yes Nausea / Vomiting: adequately controlled Pain: adequately controlled Airway Patency, RR, SpO2: stable & adequate BP & HR: stable & adequate Hydration State: stable & adequate Neuraxial Anesthesia: was administered and sensory block is resolving Anesthetic Complications: no major complications apparent
--- NOTE | 2025-09-19 20:24 | XRay Report ---
INDICATION: Pain TECHNIQUE: 2 views of the left hip were obtained. COMPARISON: Left hip CT 1 day previous FINDINGS: Interval left hip arthroplasty with cement augmentation and components in anatomic alignment. Expected postsurgical changes of the surrounding soft tissues. Overlying skin denisa. IMPRESSION: Expected postsurgical changes of interval left hip arthroplasty with components in anatomic alignment. Electronically signed by Yovani Resendiz 09-19-2025 8:24 PM
[2025-09-19] MEDS: cefTRIAXone SODIUM 2,000 MG/50 ML BAG IV SCH (22:52)
[2025-09-20 07:42] LABS: Hematocrit (blood only) 30.0 % (37.0-47.0); Hemoglobin 10.2 g/dL (12.0-16.0); Mean Corpuscular Hemoglobin 29.2 pg (25.0-34.0); Mean Corpuscular Volume 86.0 fL (80.0-100.0); Platelet Count 124 K/uL (130-400); RDW Standard Deviation 42.3 fL (36.4-46.3); Red Blood Count 3.49 M/uL (4.20-5.40); White Blood Count 9.99 K/ul (4.8-10.8)
[2025-09-20 08:05] LABS: Anion Gap 7.0 (3-11); Blood Urea Nitrogen 10.0 mg/dl (6-23); Calcium 8.0 mg/dl (8.6-10.3); Carbon Dioxide 22.0 mmol/L (21-32); Chloride 106.0 mmol/L (98-107); Creatinine Clr Calc Pharmacy 49.7 ml/min; Glucose 168.0 mg/dl (70-99(Fasting)); Magnesium 1.8 mg/dl (1.7-2.4); Potassium 3.7 mmol/L (3.5-5.1); Sodium 135.0 mmol/L (136-145)
--- NOTE | 2025-09-20 08:49 | Orthopedic Progress Note ---
Date of Service September 20, 2025 Assessment & Plan (1) Left displaced femoral neck fracture: * Continue Current Treatment * S/p left hip hemiarthroplasty * Weight bearing status: WBAT, hip precautions * Daily treatment: Physical Therapy/ Occupational Therapy per protocol * Pain control * Continue to monitor for ABLA * DVT prophylaxis, ok to resume from ortho standpoint * Disposition: TBD * Office/hospital f/u 2 weeks for progress check and staple/suture removal * Remainder care per primary team Subjective .Active Problems: S/p left hip hemiarthroplasty POD 1 84 y/o female s/p left hip hemiarthroplasty. Doing well overall, pain managed and improved function. Denies fever/chills, chest pain/SOB, nausea/vomiting. Otherwise no complaints. Review of Systems All systems reviewed & are unremarkable except as noted in HPI & below. Physical Exam . * General: Alert and oriented, no acute distress * Constitutional: well-developed, well-nourished. * Respiratory: Normal respiratory effort, no distress * Gastrointestinal: No tenderness to palpation, no rigidity or guarding. * Skin: No rash or lesion. * Neurologic: Grossly normal * Musculoskeletal: left hip surgical dressing CDI, not removed for exam. Otherwise no obvious deformity or overlying skin changes. Diffuse TTP proximal thigh and hip region. Otherwise no specific tenderness of distal thigh, lower leg, foot/ankle. AROM hip flexion intact. AROM foot/ankle intact. Sensation intact plantar/dorsal foot. Brisk capillary refill. Results & Data Results & Data Laboratory Results . Diagnostic Findings . Chest X-Ray 09/19/25 07:42 SINGLE VIEW CHEST CLINICAL HISTORY: Preoperative assessment. FINDINGS: An AP, portable, upright chest radiograph is compared to study dated 05/20/2025 and correlated with chest CT dated 02/19/2019. The heart is mildly enlarged noting atherosclerotic calcification of the thoracic aorta. The pulmonary vasculature is noncongested. Chronic interstitial thickening is similar to previous. There is mild bibasilar scarring/atelectasis. No airspace consolidation or large pleural effusion is identified. No pneumothorax is seen. The skeletal structures are osteopenic. The bony thorax is grossly intact. IMPRESSION: Mild cardiomegaly with no active disease in the chest. ACT 112: Negative or not required by law. Electronically signed by: Aroldo Overton M.D. 09/19/2025 9:01 AM Hip X-Ray 09/19/25 18:11 INDICATION: Pain TECHNIQUE: 2 views of the left hip were obtained. COMPARISON: Left hip CT 1 day previous FINDINGS: Interval left hip arthroplasty with cement augmentation and components in anatomic alignment. Expected postsurgical changes of the surrounding soft tissues. Overlying skin denisa. IMPRESSION: Expected postsurgical changes of interval left hip arthroplasty with components in anatomic alignment. Electronically signed by Yovani Resendiz 09-19-2025 8:24 PM PG Care Time/CCT Total # of Minutes Spent Total Time Spent with Patient: Total time spent is greater than 50% in coordination of care (as documented) at patient's floor/unit and/or counseling patient: Coding Level of Care Code 69055 Post Operative Follow-Up Diagnoses Left displaced femoral neck fracture S72.002A
--- NOTE | 2025-09-20 10:26 | Hospitalist Progress Note ---
Date of Service September 20, 2025 Assessment & Plan (1) Closed left femoral fracture: Plan: Status postsurgical repair 09/19/2025 (2) Left displaced femoral neck fracture: (3) Asymptomatic bacteriuria: (4) Alzheimer's dementia: Plan Patient 84-year-old female status post mechanical fall and left femoral neck fracture. Patient has done well postoperatively. Continue therapies Continue with oral pain control Will maintain Bruno catheter today anticipate removing tomorrow as patient becomes a bit more active Urine culture not growing any definitive, singular bacteria. Suspect chronic colonization. Discontinue Rocephin Saline lock IV fluids Communication with case management, anticipated bed available at [facility] on Thursday Family at bedside updated Admission and Anticipated Discharge Date Admission Date: September 18, 2025 Subjective Patient states her pain is well-controlled. Family at bedside and confirms. No acute needs at this time Physical Exam Physical Exam: Constitutional: Alert, nontoxic HEENT: Mucous membranes moist. Lungs: Clear to auscultation, decreased, no wheezes rales or rhonchi CV: S1-S2, regular Abdomen: Soft, nontender, nondistended Extremities: Mild edema around surgical incision, dressing clean and dry Neuro: No focal deficits, generally weak Psych: Cooperative, flat affect, impaired memory, cognition and decision-making Results & Data Results & Data Vital Signs (Past 12 Hours) Vital Signs Temp Pulse Pulse Resp BP Pulse Ox O2 Del Method 09/20/25 08:03 36.7 C 82 13 110/68 95 Room Air 09/20/25 04:14 36.3 C L 95 H 16 103/57 L 93 Room Air 09/19/25 22:46 36.8 C 90 18 116/78 96 Room Air Diagnostic Findings Reviewed imaging, laboratory and diagnostic studies. Pertinent findings as below. Hemoglobin 10.2, expected decreased from fracture Sodium 135 Other electrolytes stable Creatinine 0.83 Glucoses reviewed (1) Closed left femoral fracture Encounter type: initial encounter Femur location: neck, unspecified portion Qualified Code(s): S72.002A - Fracture of unspecified part of neck of left femur, initial encounter for closed fracture
[2025-09-20] MEDS: ACETAMINOPHEN 1,000 MG/100 ML VIAL IV STA (12:06)
[2025-09-20] MEDS: ACETAMINOPHEN 500 MG TAB PO SCH (14:49)
[2025-09-20] MEDS: LACTATED RINGER'S 1,000 ML IV SCH (15:53)
[2025-09-21 07:10] LABS: Hematocrit (blood only) 28.8 % (37.0-47.0); Hemoglobin 9.6 g/dL (12.0-16.0); Mean Corpuscular Hemoglobin 29.3 pg (25.0-34.0); Mean Corpuscular Volume 87.8 fL (80.0-100.0); Platelet Count 108 K/uL (130-400); RDW Standard Deviation 43.0 fL (36.4-46.3); Red Blood Count 3.28 M/uL (4.20-5.40); White Blood Count 9.83 K/ul (4.8-10.8)
[2025-09-21 08:07] LABS: Anion Gap 5.0 (3-11); Blood Urea Nitrogen 12.0 mg/dl (6-23); Calcium 8.4 mg/dl (8.6-10.3); Carbon Dioxide 25.0 mmol/L (21-32); Chloride 107.0 mmol/L (98-107); Creatinine Clr Calc Pharmacy 52.8 ml/min; Glucose 113.0 mg/dl (70-99(Fasting)); Potassium 4.1 mmol/L (3.5-5.1); Sodium 137.0 mmol/L (136-145)
--- NOTE | 2025-09-21 10:15 | Orthopedic Progress Note ---
Date of Service September 21, 2025 Assessment & Plan (1) Left displaced femoral neck fracture: * Continue Current Treatment * S/p left hip hemiarthroplasty * Weight bearing status: WBAT, hip precautions * Daily treatment: Physical Therapy/ Occupational Therapy per protocol * Pain control * Continue to monitor for ABLA * DVT prophylaxis, ok to resume from ortho standpoint * Disposition: TBD * Office/hospital f/u 2 weeks for progress check and staple/suture removal * Remainder care per primary team Subjective Active Problems: S/p left hip hemiarthroplasty POD 2 84 y/o female s/p left hip hemiarthroplasty. Doing well overall, pain managed and improved function. Denies fever/chills, chest pain/SOB, nausea/vomiting. Otherwise no complaints. Review of Systems All systems reviewed & are unremarkable except as noted in HPI & below. Physical Exam * Musculoskeletal: left hip surgical dressing CDI, not removed for exam. Otherwise no obvious deformity or overlying skin changes. Diffuse TTP proximal thigh and hip region. Otherwise no specific tenderness of distal thigh, lower leg, foot/ankle. AROM hip flexion intact. AROM foot/ankle intact. Sensation intact plantar/dorsal foot. Brisk capillary refill. Results & Data Results & Data Laboratory Results . Diagnostic Findings . PG Care Time/CCT Total # of Minutes Spent Total Time Spent with Patient: Total time spent is greater than 50% in coordination of care (as documented) at patient's floor/unit and/or counseling patient: Supervising Physician Co-Signing Physician Notes Patient was evaluated. Her son was at the bedside. Expressed concerns about the degree of somnolence. She did not seem to be able to coordinate her mouth to even take sips of water from a straw. He was able to feed her 5 small teaspoons of mashed potatoes. Otherwise p.o. intake has been very minimal. The hospitalist also came to the bedside and reviewed the clinical situation. Overall, she is making progress as expected. Expect increase in dementia related symptoms due to blood loss, general anesthesia, and hospital disorientation. With regard to orthopedic care, she can be weightbearing as tolerated. Please attempt to respect the posterior hip precautions as best as possible. She should have the purple pillow wedged between her knees when in bed. Max assist for out of bed activities. Will continue to follow peripherally while in house. The dressing can be changed daily. She should be seen for wound check at 2 weeks, which can be managed by the nursing staff at the next facility with direct medication. Repeat x-rays no later than 6 weeks from her surgery. Please call orthopedics with questions. Coding Level of Care Code 55684 Post Operative Follow-Up Diagnoses Left displaced femoral neck fracture S72.002A
[2025-09-21] MEDS ORDERED: MoRPHine SULFATE 2 MG/ML CARP IV PRN (10:41)
--- NOTE | 2025-09-21 12:20 | Hospitalist Progress Note ---
Date of Service September 21, 2025 Assessment & Plan (1) Closed left femoral fracture: Plan: Status postsurgical repair 09/19/2025 (2) Left displaced femoral neck fracture: (3) Acute metabolic encephalopathy: (4) Acute blood loss anemia: Plan: Expected with fracture (5) Alzheimer's dementia: (6) Asymptomatic bacteriuria: (7) Osteoporosis with pathological fracture: Plan Patient 84-year-old female with fairly moderate to severe dementia presents with a fall and hip fracture. Still quite encephalopathic postsurgically. Continue to hydrate Continue other supportive care Advance diet as patient becomes more alert Conversation with son and at bedside, aware it may take her several days for her to recover from the trauma of the fracture, anesthesia, surge agree, alteration in her sleep wake habits, excetra Advanced goals of care discussion 20 minutes: Conversation with son and at bedside. We discussed the fact that hip fractures do have a high morbidity and mortality associated with them. In the setting of her dementia encephalopathy may be more prolonged. She may not return to her previous level of cognition and alertness. We discussed the fact that she currently is not taking adequate nutrition. We discussed tube feeds. was quite clear that he would drawl the line with artificial feeding and would not proceed with any type of tube feedings if her mental status does not improve to where she can herself take an adequate nutrition. We discussed if her mentation does not return transitioning to comfort care. We discussed possibilities of home hospice versus hospice at a [facility] facility. Son and recognize will continue current plans of care for the next few days and reassess over the weekend or early next week as far as her condition and moving forward with further plans of care. Admission and Anticipated Discharge Date Admission Date: September 18, 2025 Subjective Patient remains significantly encephalopathic. Barely awake for any extended period of time. No significant oral intake. Physical Exam Physical Exam: Constitutional: Asleep, will awaken but immediately falls back to sleep HEENT: Mucous membranes slightly dry Lungs: Decreased breath sounds, no rales, no wheezes CV: S1-S2, regular Abdomen: Soft, nontender, nondistended Extremities: Surgical dressing clean and dry Neuro: Lethargic, minimally awakens with vigorous stimulation, chronically impaired cognition and memory, generally weak Psych: Lethargic Results & Data Results & Data Vital Signs (Past 12 Hours) Vital Signs Temp Pulse Resp BP Pulse Ox O2 Del Method 09/21/25 07:30 37.1 C 90 20 134/73 96 Room Air 09/21/25 07:22 Room Air Diagnostic Findings Reviewed imaging, laboratory and diagnostic studies. Pertinent findings as below. Hemoglobin 9.6 Electrolytes stable Creatinine 0.78 Glucose 113 (1) Closed left femoral fracture Encounter type: initial encounter Femur location: neck, unspecified portion Qualified Code(s): S72.002A - Fracture of unspecified part of neck of left femur, initial encounter for closed fracture
--- NOTE | 2025-09-22 08:26 | Orthopedic Progress Note ---
Date of Service September 22, 2025 Assessment & Plan (1) Left displaced femoral neck fracture: * Continue Current Treatment * S/p left hip hemiarthroplasty * Weight bearing status: WBAT, hip precautions * Daily treatment: Physical Therapy/ Occupational Therapy per protocol * Pain control * Continue to monitor for ABLA * DVT prophylaxis, ok to resume from ortho standpoint * Disposition: TBD * Office/hospital f/u 2 weeks for progress check and staple/suture removal * Remainder care per primary team Subjective Active Problems: S/p left hip hemiarthroplasty POD 3 84 y/o female s/p left hip hemiarthroplasty. Doing well overall, pain managed and improved function. Denies fever/chills, chest pain/SOB, nausea/vomiting. Otherwise no complaints. Review of Systems All systems reviewed & are unremarkable except as noted in HPI & below. Physical Exam * Musculoskeletal: left hip surgical dressing CDI, not removed for exam. Otherwise no obvious deformity or overlying skin changes. Diffuse TTP proximal thigh and hip region. Otherwise no specific tenderness of distal thigh, lower leg, foot/ankle. AROM hip flexion intact. AROM foot/ankle intact. Sensation intact plantar/dorsal foot. Brisk capillary refill. Results & Data Results & Data Laboratory Results . Diagnostic Findings . PG Care Time/CCT Total # of Minutes Spent Total Time Spent with Patient: Total time spent is greater than 50% in coordination of care (as documented) at patient's floor/unit and/or counseling patient: Coding Level of Care Code 66532 Post Operative Follow-Up Diagnoses Left displaced femoral neck fracture S72.002A
[2025-09-22] MEDS: FUROSEMIDE 40 MG/4 ML VIAL IV ONE (11:44)
[2025-09-22] MEDS: CHLORASEPTIC (PHENOL) 1.4% SOLN 180 ML BTL MT PRN (14:06)
--- NOTE | 2025-09-22 14:42 | Hospitalist Progress Note ---
Date of Service September 22, 2025 Assessment & Plan (1) Closed left femoral fracture: Plan: Status postsurgical repair 09/19/2025 (2) Left displaced femoral neck fracture: (3) Acute metabolic encephalopathy: Plan: Persistent (4) Acute blood loss anemia: Plan: Expected with fracture (5) Alzheimer's dementia: Plan: Advanced (6) Asymptomatic bacteriuria: (7) Osteoporosis with pathological fracture: (8) Dysphagia: Plan Patient 84-year-old female with advanced dementia, feeding issues even prior to admission presented with mechanical fall and left hip fracture. Status post repair. Postoperatively patient with persistent metabolic encephalopathy in the setting of dementia.'s most likely multifactorial. Extremely slow to resolve. Family at bedside believes that patient does have a sore throat from being intubated, trial of Chloraseptic Instructed family to only try feedings if the patient is able to stay alert and responsive long enough to understand that she is being fed. Family requested guidance on nutritional supplements, consult dietitian Patient does appear to be getting volume overloaded with increasing dependent edema, give 1 dose of IV Lasix today, decrease IV fluid rate. Intake and output is positive. Continue to monitor and son at bedside reaffirmed that tube feeding/artificial feeding is not something they would want to proceed with. and son aware that plans for decision making on goals of care will occur on Thursday. If she is not eating or drinking adequately, they anticipate coordinating home hospice. Admission and Anticipated Discharge Date Admission Date: September 18, 2025 Subjective Patient still significantly encephalopathic, spending most of the day and night sleeping, will arouse intermittently, son did attempt some feeding last evening. Patient had coughing episode and probable aspiration. No hypoxia, no fevers. Son and at bedside concerned patient has sore throat from when she was intubated for surgery, feel as though this is contributing to her poor eating. They did state that though even before this acute event patient had issues with swallowing and feeding associated with her dementia Physical Exam Physical Exam: Constitutional: Drowsy, will awaken briefly HEENT: Mucous membranes dry, no lesions in posterior pharynx Lungs: Decreased breath sounds CV: S1-S2, regular Abdomen: Soft, nontender, nondistended Extremities: Patient with dependent edema in thighs Neuro: Ongoing encephalopathy, lethargic, minimally arousable, will intermittently follow commands, cannot stay awake for more than a few seconds Psych: Cooperative, normal mood Results & Data Results & Data Vital Signs (Past 12 Hours) Vital Signs Temp Pulse Resp BP Pulse Ox O2 Del Method 09/22/25 07:50 37.1 C 97 H 18 132/77 94 Room Air Diagnostic Findings Reviewed imaging, laboratory and diagnostic studies. Pertinent findings as below. (1) Closed left femoral fracture Encounter type: initial encounter Femur location: neck, unspecified portion Qualified Code(s): S72.002A - Fracture of unspecified part of neck of left femur, initial encounter for closed fracture
[2025-09-23 06:50] LABS: Hematocrit (blood only) 26.6 % (37.0-47.0); Hemoglobin 9.1 g/dL (12.0-16.0); Mean Corpuscular Hemoglobin 29.5 pg (25.0-34.0); Mean Corpuscular Volume 86.4 fL (80.0-100.0); Platelet Count 152 K/uL (130-400); RDW Standard Deviation 41.8 fL (36.4-46.3); Red Blood Count 3.08 M/uL (4.20-5.40); White Blood Count 8.97 K/ul (4.8-10.8)
--- NOTE | 2025-09-23 06:59 | Electrocardiogram Report ---
Test Reason : Blood Pressure : */* mmHG Vent. Rate : 89 BPM Atrial Rate : 89 BPM P-R Int : 144 ms QRS Dur : 68 ms QT Int : 336 ms P-R-T Axes : 58 5 77 degrees QTcB Int : 408 ms Normal sinus rhythm Low voltage QRS Nonspecific ST abnormality Abnormal ECG When compared with ECG of 03-Apr-2025 17:49, T wave inversion no longer evident in Inferior leads Nonspecific T wave abnormality no longer evident in Anterior leads Confirmed by Vitaly Edwards ([id number]) on 09/23/2025 6:58:25 AM Referred By: REFERRED SELF Confirmed By: Vitaly Edwards
[2025-09-23 07:35] LABS: Anion Gap 9.0 (3-11); Blood Urea Nitrogen 14.0 mg/dl (6-23); Calcium 8.7 mg/dl (8.6-10.3); Carbon Dioxide 26.0 mmol/L (21-32); Chloride 103.0 mmol/L (98-107); Creatinine Clr Calc Pharmacy 67.6 ml/min; Glucose 98.0 mg/dl (70-99(Fasting)); Magnesium 1.9 mg/dl (1.7-2.4); Potassium 3.3 mmol/L (3.5-5.1); Sodium 138.0 mmol/L (136-145)
[2025-09-23] MEDS: POTASSIUM CHLORIDE 20 MEQ/15 ML UDC PO STA (08:46)
--- NOTE | 2025-09-23 14:37 | Hospitalist Progress Note ---
Date of Service September 23, 2025 Assessment & Plan (1) Closed left femoral fracture: Plan: Status postsurgical repair 09/19/2025 (2) Left displaced femoral neck fracture: (3) Acute metabolic encephalopathy: Plan: Persistent (4) Acute blood loss anemia: Plan: Expected with fracture (5) Alzheimer's dementia: Plan: Advanced (6) Asymptomatic bacteriuria: (7) Osteoporosis with pathological fracture: (8) Dysphagia: Plan Ms. Taylor is an 84-year-old female currently residing at [facility] with past med history significant for CKD stage III, psoriatic arthritis, osteoporosis, migraine, severe late onset Alzheimer's dementia with psychotic disturbance, history of breast cancer admitted for evaluation after fall and found to have closed left femoral facture. Patient underwent left cemented bipolar hemiarthroplasty on 09/[address] Hewitt. Course complicated by persistent metabolic encephalopathy. is considering home with hospice, but awaiting the weekend before making this determination. #Acute delirium superimposed on dementia #Severe Alzheimer's dementia -On Memantine holding risperidone iso delirium potentially iso pain, dehydration, progressive dementia discussing possible home hospice, working to make final decision come Thursday contingent on "weekend course" #Closed left femoral fracture #Status post mechanical fall -Imaging studies showing commuted displaced angulated left subcapital femoral neck fracture -Patient has severe dementia and ambulates with rollator walker -Labs are okay, UA with some evidence of bacterial infection vs. colonization Plan: -ortho consult, appreciate recs -this provider did recommend proceeding with surgery due to patient goals of improved quality of life and given prior ability to ambulate -Pain control. NPO. IV fluids -check xr chest, start IS for preop optimization -patient is medically optimized for procedure #Thrombocytopenia *resolved -Platelets 152 #abnormal UA no further abx at this time , UA culture with multiple growths CKD stage III stable on lab review I spent a total of 55 minutes in direct patient care, including [id number] time with the patient and/or family, reviewing medical records, ordering and reviewing diagnostic tests, and coordinating care with other healthcare providers. This time includes: history taking, physical examination, medical decision making, counseling, ECG interpretation, imaging interpretation, lab interpretation, orders, and education, excluding time spent in the performance of separately billed services Admission and Anticipated Discharge Date Admission Date: September 18, 2025 Subjective Evaluated at bedside very lethargic, awakens with physical stimuli, but very active at bedside, reports desire to work to wake patient and encourage intake notes that he is likely to transition to hospice, but wants the weekend to think about it Physical Exam Constitutional: sleeeping, able to awaken briefly with loud verbal stimuli and physical stimuli, drifts back to sleep Respiratory: normal respiratory effort, lungs clear to auscultation Cardiovascular: RRR, no murmur, no edema Gastrointestinal (Abdomen): normal bowel sounds, soft, nontender, no hepatosplenomegaly Results & Data Results & Data Vital Signs (Past 12 Hours) Vital Signs Temp Pulse Resp BP Pulse Ox O2 Del Method 09/23/25 10:07 Room Air 09/23/25 08:10 36.6 C 85 16 132/69 94 Room Air Laboratory Results Short CBC 09/23/25 Range/Units 06:09 WBC 8.97 (4.8-10.8) K/ul Hgb 9.1 L (12.0-16.0) g/dL Hct 26.6 L (37.0-47.0) % Plt Count 152 (130-400) K/uL BMP 09/23/25 06:09 Sodium 138 Potassium 3.3 L Chloride 103 Carbon Dioxide 26 BUN 14 Creatinine 0.61 Glucose 98 Calcium 8.7 Medications Administered Home Medications Medication Instructions Recorded Confirmed Last Taken acetaminophen 325 mg tablet 650 mg PO QID PRN Pain 09/18/25 09/18/25 Unknown memantine 10 mg tablet 10 mg PO BID 09/18/25 09/18/25 Unknown polyethylene glycol 3350 17 gram 17 g PO DAILY PRN Constipation 09/18/25 09/18/25 Unknown oral powder packet (Miralax) risperidone 1 mg/mL oral solution 0.25 mg PO DAILY 09/18/25 09/18/25 Unknown risperidone 1 mg/mL oral solution 0.5 mg PO HS 09/18/25 09/18/25 Unknown triamcinolone acetonide 0.1 % 1 applic topical BID PRN Itching 09/18/25 09/18/25 Unknown topical cream Active Medications Generic Name Dose Route Start Last Admin Trade Name Freq PRN Reason Stop Dose Admin Acetaminophen 1,000 mg 09/20/25 14:00 09/23/25 13:55 Acetaminophen 500 Mg Tab PO 10/20/25 13:59 1,000 mg TID LAUREN Administration Lactated Ringer's 1,000 mls @ 60 mls/hr 09/20/25 15:30 09/23/25 13:45 Lr IV 09/23/25 15:29 60 mls/hr .[id number] LAUREN Administration Memantine 10 mg 09/19/25 09:00 09/23/25 08:18 Memantine Hcl 10 Mg Tab PO 10/19/25 08:59 10 mg BID LAUREN Administration Phenol 2 sprays 09/22/25 10:56 09/22/25 14:06 Chloraseptic (Phenol) 1.4% Soln 180 Ml Btl MT 10/22/25 10:55 2 sprays Q2H PRN Administration sore throat Risperidone 0.5 mg 09/19/25 21:00 09/21/25 22:03 Risperidone 1 Mg/Ml Solution PO 10/19/25 20:59 Not Given HS LAUREN Risperidone 0.25 mg 09/19/25 09:00 09/22/25 09:05 Risperidone 1 Mg/Ml Solution PO 10/19/25 08:59 0.25 mg DAILY LAUREN Administration (1) Closed left femoral fracture Encounter type: initial encounter Femur location: neck, unspecified portion Qualified Code(s): S72.002A - Fracture of unspecified part of neck of left femur, initial encounter for closed fracture
[2025-09-23] MEDS: KETOROLAC TROMETHAMINE 15 MG/ML VIAL IV PRN (17:09)
--- NOTE | 2025-09-24 16:56 | Discharge Summary ---
Discharge Summary Date of Service September 24, 2025 Principal Dx & Hospital Course #1 = Principal Diagnosis (1) Closed left femoral fracture: Status postsurgical repair 09/19/2025 (2) Left displaced femoral neck fracture: (3) Acute metabolic encephalopathy: Persistent (4) Acute blood loss anemia: Expected with fracture (5) Alzheimer's dementia: Advanced (6) Asymptomatic bacteriuria: (7) Osteoporosis with pathological fracture: (8) Dysphagia: Plan Ms. Taylor is an 84-year-old female currently residing at 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 Patient underwent left cemented bipolar hemiarthroplasty on 09/[address] Hewitt. Course complicated by persistent metabolic encephalopathy. Patient with more wakeful moments in afternoon. Spent 75 minutes discussing patient with , son, and daughter. Discussed that hunger/thirst drive decreases as dementia progresses; discussed that every injury/illness/episode of acute delirium will likely bring her down from a baseline she may not get back to previously; set the expectation that for PT at home, patient still may not be able to get strength to aid in transfer #Acute delirium superimposed on dementia #Severe Alzheimer's dementia -On Memantine holding risperidone iso delirium potentially iso pain, dehydration, progressive dementia discussing possible home hospice, working to make final decision come Thursday contingent on "weekend course" #Closed left femoral fracture #Status post mechanical fall -Imaging studies showing commuted displaced angulated left subcapital femoral neck fracture -Patient has severe dementia and ambulates with rollator walker -Labs are okay, UA with some evidence of bacterial infection vs. colonization Plan: -ortho consult, appreciate recs -this provider did recommend proceeding with surgery due to patient goals of improved quality of life and given prior ability to ambulate -Pain control. NPO. IV fluids -check xr chest, start IS for preop optimization -patient is medically optimized for procedure #Thrombocytopenia *resolved -Platelets 152 #abnormal UA no further abx at this time , UA culture with multiple growths CKD stage III stable on lab review I spent a total of 55 minutes in direct patient care, including [id number] time with the patient and/or family, reviewing medical records, ordering and reviewing diagnostic tests, and coordinating care with other healthcare providers. This time includes: history taking, physical examination, medical decision making, counseling, ECG interpretation, imaging interpretation, lab interpretation, orders, and education, excluding time spent in the performance of separately billed services Admission HPI Per Admitting Provider 84-year-old female currently residing at 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 is in the room. provided H&P. Patient is oriented to only name. states patient thinks is a familiar person. Patient ambulates with rollator walker. She was in the toilet. When she got from the toilet she slipped and fell. She fell last Thursday. There was not much stuff at intermediate on the weekend as per . Patient was comfortable when she was put on bed and when she was sitting. But when tried to walk she complained of pain in the right leg. Finally was able to get x-ray today morning and was brought to the ER . Patient resting comfortably and hemodynamically stable. No complaints of any other pain as per . No fevers. No nausea or vomiting. She is incontinent of urine and stools. Could not get much history as patient has severe dementia. Past med history. As mentioned above. Past surgical history. Right breast biopsy. Colonoscopy. Right partial mastectomy. Appendectomy. Sigmoidoscopy. Removal of cataract. Social history. . Current living in memory unit. No smoking. No drug use. Family history. Mother had depression. Father had endocarditis, CLL. Brother had celiac disease. Neurofibromatosis. Updated Medication List Medication Instructions Recorded Confirmed Type acetaminophen 325 mg tablet 650 mg PO QID PRN Pain 09/18/25 09/18/25 History memantine 10 mg tablet 10 mg PO BID 09/18/25 09/18/25 History polyethylene glycol 3350 17 gram 17 g PO DAILY PRN Constipation 09/18/25 09/18/25 History oral powder packet (Miralax) risperidone 1 mg/mL oral solution 0.25 mg PO DAILY 09/18/25 09/18/25 History risperidone 1 mg/mL oral solution 0.5 mg PO HS 09/18/25 09/18/25 History triamcinolone acetonide 0.1 % 1 applic topical BID PRN Itching 09/18/25 09/18/25 History topical cream Hospital Stay Data Consultations 09/18/25 20:31 ED Decision to Admit Stat 09/19/25 08:00 Consult Orthopedic Surgery Routine Procedures Performed Operation Date: 09/19/25 08:55 Actual Procedures p Left Cemented Hemiarthroplasty Hip(Left) - Jamaal Hewitt MD Diagnostic Imagining Performed 09/18/25 19:09 CT hip LT wo con Stat 09/18/25 19:28 CT pelvis wo con Stat 09/19/25 13:58 US - OR guided needle placemen Routine
--- NOTE | 2025-09-24 17:05 | Hospitalist Progress Note ---
Date of Service September 24, 2025 Assessment & Plan (1) Closed left femoral fracture: (2) Left displaced femoral neck fracture: (3) Acute metabolic encephalopathy: (4) Acute blood loss anemia: (5) Alzheimer's dementia: (6) Asymptomatic bacteriuria: (7) Osteoporosis with pathological fracture: (8) Dysphagia: Plan Ms. 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 Patient underwent left cemented bipolar hemiarthroplasty on 09/[address] Hewitt. Course complicated by persistent metabolic encephalopathy. Patient with more wakeful moments in afternoon. Spent 75 minutes discussing patient with , son, and daughter. Discussed that hunger/thirst drive decreases as dementia progresses; discussed that every injury/illness/episode of acute delirium will likely bring her down from a baseline she may not get back to previously; set the expectation that for PT at home, patient still may not be able to get strength to aid in transfer Family is agreeing on home with hospice. states he will have significant caregiver support and will work to get more coverage if needed as there are no financial constraints. Plan to discuss with case management in am #Acute delirium superimposed on dementia #Severe Alzheimer's dementia -On Memantine holding risperidone iso delirium potentially iso pain, dehydration, progressive dementia plan for hospice at home, not quite comfort measures at this juncture yet #Closed left femoral fracture #Status post mechanical fall -Imaging studies showing commuted displaced angulated left subcapital femoral neck fracture -Patient has severe dementia and ambulates with rollator walker s/p left hemiarthroplasty f/u 2 weeks for progress check and staple/suture removal #Thrombocytopenia *resolved stable #abnormal UA no further abx at this time , UA culture with multiple growths CKD stage III stable on lab review I spent a total of 55 minutes in direct patient care, including [id number] time with the patient and/or family, reviewing medical records, ordering and reviewing diagnostic tests, and coordinating care with other healthcare providers. This time includes: history taking, physical examination, medical decision making, counseling, ECG interpretation, imaging interpretation, lab interpretation, orders, and education, excluding time spent in the performance of separately billed services Admission and Anticipated Discharge Date Admission Date: September 18, 2025 Subjective evaluated at bedside awakens easily to name, initially frightened when told she was in hospital. but calm and understanding about family able to visit; does not recall visit on subsequent exam declines any acute symptoms during 2 exams through out the day Physical Exam Constitutional: sleeping, awakens easily Respiratory: normal respiratory effort, lungs clear to auscultation Cardiovascular: RRR, no murmur, no edema Gastrointestinal (Abdomen): normal bowel sounds, soft, nontender, no hepatosplenomegaly Results & Data Results & Data Vital Signs (Past 12 Hours) Vital Signs Temp Pulse Resp BP Pulse Ox O2 Del Method 09/24/25 14:51 36.5 C 75 18 156/89 H 96 Room Air 09/24/25 10:19 77 18 137/84 96 Room Air 09/24/25 07:08 Room Air Medications Administered Home Medications Medication Instructions Recorded Confirmed Last Taken acetaminophen 325 mg tablet 650 mg PO QID PRN Pain 09/18/25 09/18/25 Unknown memantine 10 mg tablet 10 mg PO BID 09/18/25 09/18/25 Unknown polyethylene glycol 3350 17 gram 17 g PO DAILY PRN Constipation 09/18/25 09/18/25 Unknown oral powder packet (Miralax) risperidone 1 mg/mL oral solution 0.25 mg PO DAILY 09/18/25 09/18/25 Unknown risperidone 1 mg/mL oral solution 0.5 mg PO HS 09/18/25 09/18/25 Unknown triamcinolone acetonide 0.1 % 1 applic topical BID PRN Itching 09/18/25 09/18/25 Unknown topical cream Active Medications Generic Name Dose Route Start Last Admin Trade Name Meg PRN Reason Stop Dose Admin Acetaminophen 1,000 mg 09/20/25 14:00 09/24/25 13:50 Acetaminophen 500 Mg Tab PO 10/20/25 13:59 1,000 mg TID LAUREN Administration Ketorolac Tromethamine 15 mg 09/21/25 10:41 09/24/25 10:56 Ketorolac Tromethamine 15 Mg/Ml Vial IV 09/26/25 10:40 15 mg Q6H PRN Administration Pain Memantine 10 mg 09/19/25 09:00 09/24/25 08:49 Memantine Hcl 10 Mg Tab PO 10/19/25 08:59 10 mg BID LAUREN Administration Phenol 2 sprays 09/22/25 10:56 09/22/25 14:06 Chloraseptic (Phenol) 1.4% Soln 180 Ml Btl MT 10/22/25 10:55 2 sprays Q2H PRN Administration sore throat Risperidone 0.5 mg 09/19/25 21:00 09/21/25 22:03 Risperidone 1 Mg/Ml Solution PO 10/19/25 20:59 Not Given HS LAUREN Risperidone 0.25 mg 09/19/25 09:00 09/22/25 09:05 Risperidone 1 Mg/Ml Solution PO 10/19/25 08:59 0.25 mg DAILY LAUREN Administration (1) Closed left femoral fracture Encounter type: initial encounter Femur location: neck, unspecified portion Qualified Code(s): S72.002A - Fracture of unspecified part of neck of left femur, initial encounter for closed fracture
[2025-09-25 11:17] LABS: Anion Gap 8.0 (3-11); Blood Urea Nitrogen 14.0 mg/dl (6-23); Calcium 8.7 mg/dl (8.6-10.3); Carbon Dioxide 26.0 mmol/L (21-32); Chloride 106.0 mmol/L (98-107); Creatinine Clr Calc Pharmacy 61.5 ml/min; Glucose 137.0 mg/dl (70-99(Fasting)); Potassium 3.3 mmol/L (3.5-5.1); Sodium 140.0 mmol/L (136-145)
--- NOTE | 2025-09-25 13:18 | Hospitalist Progress Note ---
Date of Service September 25, 2025 Assessment & Plan (1) Closed left femoral fracture: (2) Left displaced femoral neck fracture: (3) Acute metabolic encephalopathy: Plan: slightly improved (4) Acute blood loss anemia: (5) Alzheimer's dementia: Plan: Advanced (6) Asymptomatic bacteriuria: (7) Osteoporosis with pathological fracture: (8) Dysphagia: Plan Patient's delirium and metabolic encephalopathy seems to be in clearing, however patient still sleeping most of the day. Did start to take more and orally for breakfast. Drinking boost. Replace potassium Extensive conversation with the patient's , son, and daughter at bedside. They again reiterated that the patient's dementia was advancing pretty significantly even before she fell and broke her hip. She is often sleeping most of the day. Feedings were difficult most of the time. We discussed ongoing goals of care and options of care. They had already had an extensive family discussion and decided they wanted to continue to pursue home hospice care. They recognize that she is advanced dementia. Also recognize that a hip fracture comes with a significant morbidity. They feel she would be most comfortable at home. They are prepared to take care of her home have the financial means. Communication with case management. They are coordinating home hospice. Family is coordinating additional home health care support and private duty nursing. Equipment being ordered and delivered to the house in the next 24 to 48 hours. Anticipate discharge home with hospice private duty nursing care when arrangements have been made at home. Admission and Anticipated Discharge Date Admission Date: September 18, 2025 Subjective Patient more alert this morning. Ate her breakfast. Able to answer more questions than on previous visits. Physical Exam Physical Exam: Constitutional: More awake and responsive, still frail HEENT: Mucous membranes moist. Lungs: Decreased breath sounds CV: S1-S2, regular Abdomen: Soft, nontender, nondistended Extremities: Edema in posterior thighs significantly improved, surgical dressing clean and dry Neuro: Generally weak, bit more responsive Psych: Flat affect, depressed mood Results & Data Results & Data Vital Signs (Past 12 Hours) Vital Signs Temp Pulse Resp BP Pulse Ox O2 Del Method 09/25/25 07:49 36.6 C 79 14 146/83 H 96 Room Air Diagnostic Findings Reviewed imaging, laboratory and diagnostic studies. Pertinent findings as below. Potassium 3.3 Creatinine 0.67 (1) Closed left femoral fracture Encounter type: initial encounter Femur location: neck, unspecified portion Qualified Code(s): S72.002A - Fracture of unspecified part of neck of left femur, initial encounter for closed fracture
[2025-09-25] MEDS ORDERED: MoRPHine SULFATE 10 MG/0.5 ML UDP PO PRN (13:20)
[2025-09-25] MEDS ORDERED: LORazepam 0.5 MG TAB PO PRN (13:20)
[2025-09-25] MEDS ORDERED: IBUPROFEN 200 MG/10 ML UDC PO PRN (13:20)
[2025-09-25] MEDS: POTASSIUM CHLORIDE 20 MEQ/15 ML UDC PO STA (14:11)
--- NOTE | 2025-09-26 13:14 | Hospitalist Progress Note ---
Date of Service September 26, 2025 Assessment & Plan (1) Closed left femoral fracture: (2) Left displaced femoral neck fracture: (3) Acute metabolic encephalopathy: Plan: slightly improved (4) Acute blood loss anemia: (5) Alzheimer's dementia: Plan: Advanced (6) Asymptomatic bacteriuria: (7) Osteoporosis with pathological fracture: (8) Dysphagia: Plan Patient with at times more alert than others, continue to feed when patient is awake and alert. Continue pain control Communication with case management family coordinating home care, hospice delivering home equipment today. Patient will be ready to accept patient home with home hospice and home care tomorrow morning. Admission and Anticipated Discharge Date Admission Date: September 18, 2025 Subjective Patient reports she slept fine. No real pain while lying still. Nurse reports that patient does have a fair amount of pain whenever they try and do routine care and reposition her. Physical Exam 2 Physical Exam: Constitutional: Still sleepy and drowsy but does awaken when you call her name HEENT: Mucous membranes dry Lungs: Decreased CV: S1-S2, regular Abdomen: Soft, nontender, nondistended Extremities: Edema improved Neuro: Generally weak, impaired memory and cognition Psych: Flat affect Results & Data Results & Data Vital Signs (Past 12 Hours) Vital Signs Temp Pulse Resp BP Pulse Ox O2 Del Method 09/26/25 07:36 36.7 C 78 18 109/60 96 Room Air (1) Closed left femoral fracture Encounter type: initial encounter Femur location: neck, unspecified portion Qualified Code(s): S72.002A - Fracture of unspecified part of neck of left femur, initial encounter for closed fracture
[2025-09-26 22:15] VITALS: O2SAT 96
--- NOTE | 2025-09-27 10:45 | Discharge Summary ---
Discharge Summary Date of Service September 27, 2025 Principal Dx & Hospital Course #1 = Principal Diagnosis (1) Closed left femoral fracture: (2) Left displaced femoral neck fracture: (3) Acute metabolic encephalopathy: slightly improved (4) Acute blood loss anemia: (5) Alzheimer's dementia: Advanced (6) Asymptomatic bacteriuria: (7) Osteoporosis with pathological fracture: (8) Dysphagia: Plan Patient 84-year-old female with advanced dementia living at a dementia unit had a mechanical fall and subsequent evaluation in the emergency department revealed a left hip fracture. Patient was admitted to the hospital. Orthopedic consultation was obtained. She is medically maximized. Patient underwent Left cemented bipolar hemiarthroplasty on 09/19/2025. Postoperatively the patient was extremely encephalopathic and delirious. She was minimally responsive for multiple days. Extensive conversations with the patient's family occurred. Discussed overall goals of care. Discussed how hip fracture carries significant morbidity with it. In the setting of her advanced dementia her encephalopathy and delirium exacerbated due to anesthesia, change in her usual environment, pain medications, acute stress of traumatic injury. Through this period of time she was given some hydration with IV fluids. Family was certain that she would not want any artificial feeding. Family decided that if the patient would not make a meaningful recovery they would want to pursue home hospice. Case management was involved and assisted the family in coordinating this care. 3 days prior to discharge the patient's encephalopathy did start to clear. She had more moments of alertness and she was staying awake long enough to eat a little bit of food and take some supplemental shakes. Even prior to her injury her nutritional intake was fairly poor with her advanced dementia. Despite the patient showing some slight improvement family still felt that the best plan of care for her would be to continue plans to arrange home hospice. Hospice was coordinated. Her home was set up with the appropriate equipment. Family was also able to hire an additional nursing staff to assist with her care at home. Her pain and symptoms are managed with oral medications. On the day of discharge her vital signs were stable. At time my evaluation she was sitting up and awake and eating some of her breakfast. She was able to tell me that her pain was controlled. After numerous conversations with patient's family confident that they are ready to care for her at home with the assistance of hospice center other home nursing care. Feel that this is the best option for the patient where she would want to be cared for. They understand to contact hospice for all initial questions and concerns. Family is aware with her advanced dementia, limited oral intake and limited mobility life expectancy is probably measured in weeks to at most a few months. Was able to review POLST form and outside EMR that was performed earlier in 2024. This confirms the patient would want limited interventions, DNR DNR and comfort measures should she have significant medical issues that would prevent her from any type of meaningful recovery and quality of life Notes For Next Care Provider Hospice/home nursing care able to remove denisa from left hip incision anytime after October 03, 2025 Call hospice first with any questions or concerns. Family's goal is to maintain the patient at home and comfort Medication Changes From Visit Numerous medications discontinued due to her hospice status. Ativan for anxiety discomfort Roxanol for pain and discomfort and respiratory distress Admission Exam Per Admitting Provider See H&P Discharge Exam Constitutional: Intermittently awake and alert, frail, majority the day extremely drowsy and sleepy HEENT: Mucous membranes moist. Lungs: Decreased breath sounds, coarse CV: S1-S2, regular Abdomen: Soft, nontender, nondistended Extremities: No significant edema Neuro: Generally weak, significantly impaired cognition, judgment, memory. Weak swallow Psych: Flat affect Updated Medication List Medication Instructions Recorded Confirmed Type acetaminophen 325 mg tablet 650 mg PO QID PRN Pain 09/18/25 09/18/25 History memantine 10 mg tablet 10 mg PO BID 09/18/25 09/18/25 History polyethylene glycol 3350 17 gram 17 g PO DAILY PRN Constipation 09/18/25 09/18/25 History oral powder packet (Miralax) risperidone 1 mg/mL oral solution 0.25 mg PO DAILY 09/18/25 09/18/25 History risperidone 1 mg/mL oral solution 0.5 mg PO HS 09/18/25 09/18/25 History triamcinolone acetonide 0.1 % 1 applic topical BID PRN Itching 09/18/25 09/18/25 History topical cream acetaminophen 500 mg tablet 1,000 mg (2 x 500 mg) PO TID #100 09/26/25 Rx (Tylenol Extra Strength) tabs lorazepam 0.5 mg tablet (Ativan) 0.5 mg buccal Q4H PRN 09/26/25 Rx discomfort/anxiety #14 tabs morphine 20 mg/5 mL (4 mg/mL) oral 5 mg (1.25 mL) PO Q1H PRN 09/26/25 Rx solution discomfort/dyspnea/aggitation #100 mL Hospital Stay Data Consultations 09/18/25 20:31 ED Decision to Admit Stat 09/19/25 08:00 Consult Orthopedic Surgery Routine Procedures Performed Operation Date: 09/19/25 08:55 Actual Procedures p Left Cemented Hemiarthroplasty Hip(Left) - Jamaal Hewitt MD Diagnostic Imagining Performed 09/18/25 19:09 CT hip LT wo con Stat 09/18/25 19:28 CT pelvis wo con Stat 09/19/25 13:58 US - OR guided needle placemen Routine Reviewed imaging, laboratory and diagnostic studies. Pertinent findings as below. Most recent laboratory studies, laboratory studies have not been performed for a few days due to her comfort status. WBCs 8.9 Hemoglobin 9.1 Platelets of 152 Sodium 140 Potassium 2.3 Chloride 106 Carbon oxide 26 BUN 14 Creatinine 0.67 Urine culture no specific growth Pending Results Patient Have Any Pending Studies at Discharge: No Discharge Instructions Given to Patient (Per Discharging Provider) Call hospice first with any questions or concerns Hospice nurse/home care nurse may remove denisa Anytime after October 03, 2025 Home Health Attestation I certify that this patient is under my care and that I, or a physicians property management assistant working with me, had a face to-face encounter that meets the home health [id number] encounter requirements with this patient. The encounter with the patient was in whole, or in part, for the following medical condition, which is the primary reason for home health care (list medical condition): I certify that, based on my findings, the following services are medically necessary home health services: My clinical findings support the need for the above services because: Further, I certify that my clinical findings support that this patient is homebound (i.e. absences from home require considerable and taxing effort and are for medical reasons or gnosticist services or infrequently or of short duration when for other reasons) because: Certification for Home Health Services: Based on the above findings, I certify that this patient is confined to the home and needs intermittent correction care, physical therapy and/or speech therapy or continues to need occupational therapy. The patient is under my care, and I have initiated the establishment of the plan of care. This patient will be followed by a physician who will periodically review the plan of care. Total Time Total Time Spent Total Time Spent (In Minutes): 40
[2025-09-27 12:46] VITALS: PULSE 71; RESP 15; TEMP 97.3
[2025-09-27 17:01] VITALS: BP 115/72
== END 2025-09-27 16:30 | disposition hospice, home (50) | DRG 521 ==
LOC: ED 18:42 → 3N 21:57 → SUATTDRO 21:57 → 3N 09-19 01:24 → 3W 09-19 09:45